=== PATIENT | female | born 1940 | race Caucasian/White ===

== ENCOUNTER → 2016-11-24 | Outpatient (CLI) | payer OTHER, MEDICARE ==
[~2016-11-24] MED LIST: ALPR-411 PO; ASCO10003 PO; ASPEC81 PO; ASPI1CHW26 PO; AZEL0.057 TOP; CALC500C70 PO; CHOL100010 PO; CLC100 PO; CTP1X PO; GLIM2TAB2 PO; HYDR25TA4 PO; MAGN400T6 PO; METF500T PO; MULT-506 PO; PLN/10 PO; SIMV20TA2 PO; SPIR25TA PO; TYLER650 PO
[2016-11-24 17:27] LABS: THYROID STIMULATING HORMONE 1.44 uIu/ml (0.300-4.500)
== END | disposition home or self-care (01) ==
LOC: C.LABPVFM 11:12
PROVIDERS: ATTEND Family Medicine
DX: E03.9 Hypothyroidism, unspecified (principal)

== ENCOUNTER → 2016-12-29 | Outpatient (CLI) | payer OTHER, MEDICARE | END | disposition home or self-care (01) | LOC: C.LABPVFM 08:46 | PROVIDERS: ATTEND Obstetrics & Gynecology | DX: Z80.41 Family history of malignant neoplasm of ovary (principal) ==

== ENCOUNTER → 2017-02-10 | Outpatient (CLI) | payer OTHER, MEDICARE ==
--- NOTE | 2017-02-10 16:32 | MAMMOGRAPHY REPORT ---
BILATERAL DIGITAL SCREENING MAMMOGRAM TOMOSYNTHESIS WITH CAD: 02/10/2017 CLINICAL HISTORY: Asymptomatic. Personal history of breast cancer. Routine screening. TECHNIQUE: Breast tomosynthesis in addition to standard 2D mammography was performed. Current study was also evaluated with a Computer Aided Detection (CAD) system. COMPARISON: Comparison is made to exams dated: 02/08/2016 mammogram, 12/13/2014 mammogram - [facility], 09/09/2010 mammogram, 09/25/2011 mammogram, 09/30/2012 mammogram, and 12/12/2013 m ammogram - [facility]. BREAST COMPOSITION: There are scattered areas of fibroglandular density in both breasts. The breas t bregma is increasingly fatty replaced compared to prior exams. FINDINGS: There is expected architectural distortion and associated surgical clips in the lateral, f ar posterior left breast, at the site of prior lumpectomy. There is stable asymmetry of the size of the breasts, right greater than left. There are scattered benign rim calcifications bilaterally. No suspicious mass, architectural distortion or cluster of microcalcifications is seen. IMPRESSION: ACR BI-RADS CATEGORY 1: NEGATIVE There is no mammographic evidence of malignancy. A 1 year screening mammogram is recommended. The p atient will receive written notification of the results. Approximately 10% of breast cancers are not detected with mammography. A negative mammographic repor t should not delay biopsy if a clinically suggestive mass is present. Deanna Palencia M.D. ay/:02/10/2017 16:14:42 Rubber Printing Machine Operator: Renata NAIR,R, M, [facility] letter sent: Normal 1/2 BI-RADS Code: ACR BI-RADS Category 1: Negative
== END | disposition home or self-care (01) ==
LOC: C.MAMM 10:51
PROVIDERS: ATTEND Obstetrics & Gynecology
DX: Z12.31 Encounter for screening mammogram for malignant neoplasm of breast (principal)

== ENCOUNTER → 2017-02-25 | Outpatient (CLI) | payer OTHER, MEDICARE | END | disposition home or self-care (01) | LOC: C.PATHSPEC 16:52 | PROVIDERS: ATTEND Dermatology | DX: L57.0 Actinic keratosis (principal); L82.1 Other seborrheic keratosis ==

== ENCOUNTER → 2017-03-23 | Outpatient (CLI) | payer OTHER, MEDICARE ==
[2017-03-23 12:41] LABS: HEMATOCRIT 44.2 % (37-47); MEAN CELL VOLUME 91.5 fL (80-100); MEAN CORPUSCULAR HEMOGLOBIN 30.2 pg (25-34); MEAN PLATELET VOLUME 11.1 fL (7.4-10.4); PLATELET COUNT 233 K/uL (130-400); RED BLOOD COUNT 4.83 M/uL (4.2-5.4); WHITE BLOOD COUNT 6.43 K/uL (4.8-10.8)
[2017-03-23 13:10] LABS: ESTIMATED AVERAGE GLUCOSE 203 mg/dl; HA1C FLAG Normal (Normal)
[2017-03-23 13:15] LABS: URINE PROTIEN/CREAT RATIO 0.1 (0-0.2); URINE TOTAL PROTEIN 21.8 mg/dl (0-11.9)
[2017-03-23 13:24] LABS: URINE APPEARANCE CLEAR (CLEAR); URINE BILIRUBIN NEG (NEG); URINE COLOR YELLOW; URINE EPITHELIAL CELL AUTO >30 /lpf (0-5); URINE NITRITE NEG (NEG); URINE PH 7.5 (4.5-7.5); URINE SPECIFIC GRAVITY 1.021 (1.000-1.030); UROBILINOGEN NEG (NEG)
[2017-03-23 13:26] LABS: BLOOD UREA NITROGEN 15 mg/dl (7-18); BUN/CREATININE RATIO 11.9 (10-20); CALCIUM 9.4 mg/dl (8.5-10.1); CARBON DIOXIDE 28 mmol/L (21-32); CHLORIDE 102 mmol/L (98-107); GLUCOSE 196 mg/dl (70-99); PHOSPHORUS 2.7 mg/dl (2.5-4.9); POTASSIUM 3.5 mmol/L (3.5-5.1); SODIUM 140 mmol/L (136-145)
[2017-03-23 13:29] LABS: CHOLESTEROL/HDL RATIO 2.9; THYROID STIMULATING HORMONE 2.46 uIu/ml (0.300-4.500)
[2017-03-23 13:33] LABS: MANUAL MICROSCOPIC REQUIRED? NO; REVIEW REQ? NO
== END | disposition home or self-care (01) ==
LOC: C.LABPVFM 07:36
PROVIDERS: ATTEND Family Medicine
DX: I12.9 Hypertensive chronic kidney disease with stage 1 through stage 4 chronic kidney disease, or unspecified chronic kidney disease (principal); N18.3 Chronic kidney disease, stage 3 (moderate); N25.81 Secondary hyperparathyroidism of renal origin; R60.9 Edema, unspecified; E55.9 Vitamin D deficiency, unspecified; E78.00 Pure hypercholesterolemia, unspecified; E11.8 Type 2 diabetes mellitus with unspecified complications; E03.9 Hypothyroidism, unspecified

== ENCOUNTER → 2017-05-04 | Outpatient (CLI) | payer OTHER, MEDICARE | LOC: C.RDSM 13:35 | PROVIDERS: ATTEND Physical Medicine & Rehabilitation Sports Medicine | DX: M17.0 Bilateral primary osteoarthritis of knee (principal) ==

== ENCOUNTER → 2017-07-02 | Outpatient (CLI) | payer OTHER, MEDICARE ==
[2017-07-02 12:54] LABS: ESTIMATED AVERAGE GLUCOSE 163 mg/dl; HA1C FLAG Normal (Normal)
[2017-07-02 13:16] LABS: BLOOD UREA NITROGEN 15 mg/dl (7-18); BUN/CREATININE RATIO 10.7 (10-20); CALCIUM 9.7 mg/dl (8.5-10.1); CARBON DIOXIDE 26 mmol/L (21-32); CHLORIDE 100 mmol/L (98-107); GLUCOSE 204 mg/dl (70-99); SODIUM 135 mmol/L (136-145)
== END | disposition home or self-care (01) ==
LOC: C.LABPVFM 08:48
PROVIDERS: ATTEND Nurse Practitioner Family
DX: E11.8 Type 2 diabetes mellitus with unspecified complications (principal)

== ENCOUNTER → 2017-08-25 | Outpatient (CLI) | payer OTHER, MEDICARE ==
[2017-08-25 13:14] LABS: LYME DISEASE AB IGG NEG (NEG); LYME DISEASE AB IGM NEG (NEG)
== END | disposition home or self-care (01) ==
LOC: C.LABPVFM 09:37
PROVIDERS: ATTEND Nurse Practitioner Adult Health
DX: R53.83 Other fatigue (principal)

== ENCOUNTER → 2017-09-21 | Outpatient (CLI) | payer OTHER, MEDICARE ==
[2017-09-21 12:46] LABS: HEMATOCRIT 46.6 % (37-47); MEAN CORPUSCULAR HEMOGLOBIN 30.1 pg (25-34); MEAN CORPUSCULAR HGB CONC 33.5 g/dl (32-36); MEAN PLATELET VOLUME 10.5 fL (7.4-10.4); PLATELET COUNT 250 K/uL (130-400); RED BLOOD COUNT 5.18 M/uL (4.2-5.4); WHITE BLOOD COUNT 9.56 K/uL (4.8-10.8)
[2017-09-21 13:03] LABS: URINE APPEARANCE CLEAR (CLEAR); URINE BILIRUBIN NEG (NEG); URINE COLOR YELLOW; URINE EPITHELIAL CELL AUTO >30 /lpf (0-5); URINE NITRITE NEG (NEG); URINE PH 7.5 (4.5-7.5); URINE SPECIFIC GRAVITY 1.026 (1.000-1.030); UROBILINOGEN NEG (NEG)
[2017-09-21 13:18] LABS: MANUAL MICROSCOPIC REQUIRED? NO; REVIEW REQ? NO; SULFASALICYLIC ACID NEG (NEG)
[2017-09-21 13:20] LABS: BLOOD UREA NITROGEN 23 mg/dl (7-18); BUN/CREATININE RATIO 18.1 (10-20); CARBON DIOXIDE 28 mmol/L (21-32); CHLORIDE 98 mmol/L (98-107); CREATININE 1.29 mg/dl (0.60-1.20); GLUCOSE 125 mg/dl (70-99); PHOSPHORUS 3.4 mg/dl (2.5-4.9); POTASSIUM 3.4 mmol/L (3.5-5.1); SODIUM 136 mmol/L (136-145)
[2017-09-21 14:26] LABS: URINE PROTIEN/CREAT RATIO 0.1 (0-0.2); URINE TOTAL PROTEIN 26.5 mg/dl (0-11.9)
== END | disposition home or self-care (01) ==
LOC: C.LABPVFM 08:21
PROVIDERS: ATTEND Internal Medicine Nephrology
DX: I12.9 Hypertensive chronic kidney disease with stage 1 through stage 4 chronic kidney disease, or unspecified chronic kidney disease (principal); N18.3 Chronic kidney disease, stage 3 (moderate); N25.81 Secondary hyperparathyroidism of renal origin; E55.9 Vitamin D deficiency, unspecified; R60.9 Edema, unspecified

== ENCOUNTER → 2017-11-11 | Outpatient (CLI) | payer OTHER, MEDICARE | END | disposition home or self-care (01) | LOC: C.PATHSPEC 17:32 | PROVIDERS: ATTEND Dermatology | DX: D23.61 Other benign neoplasm of skin of right upper limb, including shoulder (principal); L57.0 Actinic keratosis ==

== ENCOUNTER → 2018-02-11 | Outpatient (CLI) | payer OTHER, MEDICARE ==
--- NOTE | 2018-02-11 15:09 | MAMMOGRAPHY REPORT ---
BILATERAL DIGITAL SCREENING MAMMOGRAM TOMOSYNTHESIS WITH CAD: 02/11/2018 CLINICAL HISTORY: Asymptomatic. Personal history of breast cancer. TECHNIQUE: Breast tomosynthesis in addition to standard 2D mammography was performed. Current study was also evaluated with a Computer Aided Detection (CAD) system. COMPARISON: Comparison is made to exams dated: 02/10/2017 mammogram, 02/08/2016 mammogram, 12/13/2014 m ammogram, 12/12/2013 mammogram - [facility], 09/30/2012 mammogram, and 09/25/2011 mamm ogram. BREAST COMPOSITION: There are scattered areas of fibroglandular density in both breasts. FINDINGS: No suspicious masses, calcifications, or areas of architectural distortion are noted in ei ther breast. There has been no significant interval change compared to prior exams. Stable post surg ical changes in the left upper outer quadrant from prior lumpectomy. Scattered bilateral benign-appe aring calcifications are not significantly changed. Bilateral asymmetries are stable. IMPRESSION: ACR BI-RADS CATEGORY 2: BENIGN There is no mammographic evidence of malignancy. A 1 year screening mammogram is recommended. The pa tient will receive written notification of the results. Approximately 10% of breast cancers are not detected with mammography. A negative mammographic report should not delay biopsy if a clinically suggestive mass is present. Stacia Gabriel M.D. /:02/11/2018 14:16:25 Pt Sitter: Nidia ROSALES)([place]), [facility] letter sent: Normal 1/2 BI-RADS Code: ACR BI-RADS Category 2: Benign
== END | disposition home or self-care (01) ==
LOC: C.MAMM 10:24
PROVIDERS: ATTEND Obstetrics & Gynecology
DX: Z12.31 Encounter for screening mammogram for malignant neoplasm of breast (principal); Z85.3 Personal history of malignant neoplasm of breast

== ENCOUNTER → 2018-03-22 | Outpatient (CLI) | payer OTHER, MEDICARE ==
[2018-03-22 12:48] LABS: HEMATOCRIT 43.7 % (37-47); HEMOGLOBIN 14.6 g/dL (12.0-16.0); MEAN CELL VOLUME 91.4 fL (80-100); MEAN CORPUSCULAR HEMOGLOBIN 30.5 pg (25-34); MEAN CORPUSCULAR HGB CONC 33.4 g/dl (32-36); MEAN PLATELET VOLUME 10.9 fL (7.4-10.4); PLATELET COUNT 213 K/uL (130-400); RED CELL DISTRIBUTION WIDTH SD 50.4 fL (36.4-46.3); WHITE BLOOD COUNT 7.11 K/uL (4.8-10.8)
[2018-03-22 13:21] LABS: HEMOGLOBIN A1C 6.7 % (4.5-5.6)
[2018-03-22 13:31] LABS: ALBUMIN 3.8 gm/dl (3.4-5.0); BLOOD UREA NITROGEN 18 mg/dl (7-18); CALCIUM 9.6 mg/dl (8.5-10.1); CARBON DIOXIDE 30 mmol/L (21-32); CREATININE 1.09 mg/dl (0.60-1.20); GLUCOSE 132 mg/dl (70-99); POTASSIUM 3.8 mmol/L (3.5-5.1); SODIUM 138 mmol/L (136-145)
[2018-03-22 13:32] LABS: PHOSPHORUS 2.8 mg/dl (2.5-4.9)
== END | disposition home or self-care (01) ==
LOC: C.LABPVFM 07:32
PROVIDERS: ATTEND Family Medicine
DX: I12.9 Hypertensive chronic kidney disease with stage 1 through stage 4 chronic kidney disease, or unspecified chronic kidney disease (principal); E11.29 Type 2 diabetes mellitus with other diabetic kidney complication; N18.3 Chronic kidney disease, stage 3 (moderate); E55.9 Vitamin D deficiency, unspecified; R31.29 Other microscopic hematuria; R60.9 Edema, unspecified; E78.00 Pure hypercholesterolemia, unspecified

== ENCOUNTER 2020-05-23 05:17 | Observation (INO) ==
--- NOTE | 2020-04-26 16:30 | PAT Medication Instructions ---
Medication Instructions Date of Service April 26, 2020 Home Medications Medication Instructions Recorded spironolactone 25 mg tablet 25 mg PO BID #180 tab 08/10/19 clonidine HCl 0.1 mg tablet 0.1 mg PO BID #180 tab 02/07/20 glimepiride 2 mg tablet 1 mg PO BID #90 tab 02/07/20 metformin 1,000 mg tablet 1,000 mg PO BID #180 tab 02/07/20 alprazolam 0.5 mg tablet 0.5 mg PO DAILY PRN #30 tab 04/03/20 bumetanide 0.5 mg tablet 0.5 mg PO DAILY #90 tab 04/26/20 albuterol sulfate 90 mcg/actuation aerosol inhaler 1 - 2 puffs INH ascorbic acid (vitamin C) 1,000 mg tablet 1 gm PO DAILY aspirin 81 mg tablet 81 mg PO DAILY calcium carbonate 500 mg calcium (1,250 mg) tablet 500 mg PO BID/20 docusate sodium 100 mg capsule 100 mg PO BID metronidazole 0.75 % topical cream 1 appln TOP potassium gluconate 595 mg (99 mg) tablet 595 mg PO DAILY triamcinolone acetonide 0.1 % topical cream 1 appln TOP vitamin A-vitamin C-vit E-min 1 tab PO DAILY spironolactone 25 mg tablet 25 mg PO BID clonidine HCl 0.1 mg tablet 0.1 mg PO BID glimepiride 2 mg tablet 1 mg PO BID metformin 1,000 mg tablet 1,000 mg PO BID alprazolam 0.5 mg tablet 0.5 mg PO DAILY PRN acetaminophen [Tylenol Extra Strength] 1,000 mg PO BID cholecalciferol (vitamin D3) 1,000 units PO QAM famotidine 20 mg PO QAM felodipine 10 mg PO QAM levothyroxine 50 mcg PO QAM omeprazole 20 mg PO QPM simvastatin 20 mg PO HS bumetanide 0.5 mg tablet 0.5 mg PO DAILY magnesium oxide 400 mg (241.3 mg magnesium) tablet 800 mg PO DAILY STOP taking 2 weeks before surgery vitamin A-vitamin C-vit E-min 1 tab PO DAILY STOP taking 24 hours before surgery metronidazole 0.75 % topical cream 1 appln TOP triamcinolone acetonide 0.1 % topical cream 1 appln TOP DO NOT take the morning of surgery bumetanide 0.5 mg tablet 0.5 mg PO DAILY magnesium oxide 400 mg (241.3 mg magnesium) tablet 800 mg PO DAILY cholecalciferol (vitamin D3) 1,000 units PO QAM spironolactone 25 mg tablet 25 mg PO BID glimepiride 2 mg tablet 1 mg PO BID metformin 1,000 mg tablet 1,000 mg PO BID potassium gluconate 595 mg (99 mg) tablet 595 mg PO DAILY calcium carbonate 500 mg calcium (1,250 mg) tablet 500 mg PO BID/20 docusate sodium 100 mg capsule 100 mg PO BID ascorbic acid (vitamin C) 1,000 mg tablet 1 gm PO DAILY Take morning of surgery With a small sip of water, OTHERWISE NOTHING TO EAT OR DRINK AFTER MIDNIGHT: famotidine 20 mg PO QAM felodipine 10 mg PO QAM levothyroxine 50 mcg PO QAM clonidine HCl 0.1 mg tablet 0.1 mg PO BID alprazolam 0.5 mg tablet 0.5 mg PO DAILY PRN (if needed) acetaminophen [Tylenol Extra Strength] 1,000 mg PO BID (okay to take up to 4 hours prior to surgery if needed) albuterol sulfate 90 mcg/actuation aerosol inhaler 1 - 2 puffs INH (use if needed; please bring with you to hospital day of surgery if possible) aspirin 81 mg tablet 81 mg PO DAILY Take evening before surgery omeprazole 20 mg PO QPM simvastatin 20 mg PO HS spironolactone 25 mg tablet 25 mg PO BID clonidine HCl 0.1 mg tablet 0.1 mg PO BID glimepiride 2 mg tablet 1 mg PO BID metformin 1,000 mg tablet 1,000 mg PO BID alprazolam 0.5 mg tablet 0.5 mg PO DAILY PRN acetaminophen [Tylenol Extra Strength] 1,000 mg PO BID calcium carbonate 500 mg calcium (1,250 mg) tablet 500 mg PO BID/20 docusate sodium 100 mg capsule 100 mg PO BID albuterol sulfate 90 mcg/actuation aerosol inhaler 1 - 2 puffs INH (if needed) Other Notes If you have any questions please call us at [phone] or [phone] or [phone] or [phone]
--- NOTE | 2020-04-27 09:30 | Anesthesiology Consultation ---
Date of Service April 27, 2020 Assessment & Plan (1) Encounter for pre-operative examination: Chart Review Chart Review: Acceptable Risk for Surgery (pending Covid testing ) and Patient seen in Pre Admission Testing - Check BSG AM DOS Per PAT apt 04/27/20, pt traveled to [facility] 04/14 for take out- stayed in car. Wears mask when in public. Denies any known Covid positive contacts. Denies any current Covid related symptoms. Has preop Covid testing scheduled three days prior to procedure. Pt educated to social distance and quarantine especially after Covid test done Pt requesting GA due to history of hardware in lumbar area. Did explain pros to spinal anesthesia. Pt will discuss with anesthesiologist DOS. Teaching & Discussion Pre-Anesthesia Teaching/Discussion Notes: Instructed NPO after midnight before surgery,except medications with 15 cc of water. Medication instructions provided according to the PAT guidelines. History Surgery Operation Date: 05/23/20 11:20 Proposed Procedures p Left Total Hip Arthroplasty with Dual Mobility Cup - Brodie Pearson MD Height/Weight Height: 5 ft 6 in Weight: 107 kg Allergies Allergy/AdvReac Type Severity Reaction Status Date / Time No Known Drug Allergies Allergy Verified 04/26/20 11:07 Medications Home Medications Medication Instructions Recorded Confirmed Last Taken albuterol sulfate 90 mcg/actuation 1 - 2 puffs INH .COMPLEX 07/04/19 04/26/20 Unknown aerosol inhaler ascorbic acid (vitamin C) 1,000 mg 1 gm PO DAILY tab 07/04/19 04/26/20 Unknown tablet aspirin 81 mg tablet 81 mg PO DAILY tab 07/04/19 04/26/20 Unknown calcium carbonate 500 mg calcium 500 mg PO BID tab 07/04/19 04/26/20 Unknown (1,250 mg) tablet docusate sodium 100 mg capsule 100 mg PO BID cap 07/04/19 04/26/20 Unknown metronidazole 0.75 % topical cream 1 appln TOP .COMPLEX 07/04/19 04/26/20 Unknown potassium gluconate 595 mg (99 mg) 595 mg PO DAILY tab 07/04/19 04/26/20 Unknown tablet triamcinolone acetonide 0.1 % 1 appln TOP .COMPLEX 07/04/19 04/26/20 Unknown topical cream vitamin A-vitamin C-vit E-min 1 tab PO DAILY 07/04/19 04/26/20 Unknown spironolactone 25 mg tablet 25 mg PO BID #180 tab 08/10/19 04/26/20 Unknown clonidine HCl 0.1 mg tablet 0.1 mg PO BID #180 tab 02/07/20 04/26/20 Unknown glimepiride 2 mg tablet 1 mg PO BID #90 tab 02/07/20 04/26/20 Unknown metformin 1,000 mg tablet 1,000 mg PO BID #180 tab 02/07/20 04/26/20 Unknown alprazolam 0.5 mg tablet 0.5 mg PO DAILY PRN #30 tab 04/03/20 04/26/20 Unknown acetaminophen [Tylenol Extra 1,000 mg PO BID 04/17/20 04/26/20 Unknown Strength] cholecalciferol (vitamin D3) 1,000 units PO QAM 04/17/20 04/26/20 Unknown famotidine 20 mg PO QAM 04/17/20 04/26/20 Unknown felodipine 10 mg PO QAM 04/17/20 04/26/20 Unknown levothyroxine 50 mcg PO QAM 04/17/20 04/26/20 Unknown omeprazole 20 mg PO QPM 04/17/20 04/26/20 Unknown simvastatin 20 mg PO HS 04/17/20 04/26/20 Unknown bumetanide 0.5 mg tablet 0.5 mg PO DAILY #90 tab 04/26/20 04/26/20 Unknown magnesium oxide 400 mg (241.3 mg 800 mg PO DAILY tab 04/26/20 04/26/20 Unknown magnesium) tablet Past Medical History Medical History (Updated 04/27/20 @ 11:07 by Dara Ibarra PA-C) Anxiety Chronic kidney disease, stage 3 Stable- follows with nephro Curvature of spine Diabetes mellitus, type 2 NIDDM- well controlled and stable GERD (gastroesophageal reflux disease) Well controlled and stable Hearing deficit [place] History of breast cancer Left - lumpectomy + radiation - 2004 Hyperlipidemia Hypertension Hypothyroidism Macular degeneration Exercise / Class Metabolic Activity III < 4 Walking/Shop/Light housework (no chest pain or SOB with flat surface ambulation- uses wheeled walker ) Past Family History Family History Mother , age 80 Ovarian cancer Diabetes Brother Prostate cancer Lung cancer Kidney stones Diabetes Cardiac disorder Colorectal cancer, Onset Age: 66 Father Cardiac disorder Grandmother (Maternal) Breast cancer Family/Other Breast cancer BRCA 2 positive Daughter No problems noted. Past Surgical History Surgical History H/O section H/O colonoscopy H/O dilation and curettage H/O tooth extraction H/O tubal ligation History of breast biopsy History of cataract surgery History of cholecystectomy History of colonoscopy History of hysteroscopy W/ POLYPECTOMY History of lumbar surgery History of right knee joint replacement S/P appendectomy S/P lumpectomy, left breast Past Anesthesia History No Hx of Anesthesia Complications and No Family Hx of Anesthesia Complications History of PONV No Hx of PONV and No Hx of Motion Sickness Social History Smoking Status: Never smoker Do You Dip or Chew Tobacco: No Smoking End Date: 1978 Hx Alcohol Use: Yes (social) Alcohol type: beer, wine and hard liquor alcohol intake frequency: holidays/special occasions only Hx Substance Use: No substance use type: does not use Review of Systems Patient denies chest pain, shortness of breath, dyspnea on exertion,, cough, wheezing, palpitations. No hx of seizures, stroke, CA, apnea/snoring. No hx of blood clots or blood transfusions Physical Exam Vital Signs VITALS BP 154/74 P 92 TEMP 98.6 SP02 97% RESP 16 Constitutional + obese; no acute distress ENMT Mouth: no TMJ clicking Thyromental Distance: > or= 3.5 Finger Breadths Mallampati Class: I Full set of dentures top and bottom Neck neck extension not limited Respiratory normal respiratory effort; no respiratory distress Auscultation: lungs clear to auscultation bilaterally; no wheezes Cardiovascular Rate/Rhythm: regular rate and regular rhythm Heart Sounds: no murmur Vessels: no carotid bruit Musculoskeletal Spine: + pain with cervical ROM (on right side ) Neurologic moves all extremities Psychiatric Orientation: alert Testing Laboratory Results PT 11.0 Seconds (9.0-12.0) 04/27/20 09:50 INR 1.0 (0.9-1.1) 04/27/20 09:50 APTT 29.2 Seconds (21.0-31.0) 04/27/20 09:50 Urine Color Yellow 04/27/20 09:50 Urine Appearance Clear (Clear) 04/27/20 09:50 Urine pH 5.0 (4.5-7.5) 04/27/20 09:50 Ur Specific [place] 1.022 (1.000-1.030) 04/27/20 09:50 Urine Protein Negative (Negative) 04/27/20 09:50 Urine Glucose (UA) Negative (Negative) 04/27/20 09:50 Urine Ketones Trace (Negative) H 04/27/20 09:50 Urine Nitrite Negative (Negative) 04/27/20 09:50 Ur Leukocyte Esterase 1+ (Negative) H 04/27/20 09:50 Urine WBC (Auto) 5-10 /hpf (0-5) H 04/27/20 09:50 Urine RBC (Auto) 0-4 /hpf (0-4) 04/27/20 09:50 U Hyaline Cast (Auto) 0 /lpf (0-5) 04/27/20 09:50 U Epithel Cells (Auto) >30 /lpf (0-5) H 04/27/20 09:50 Urine Bacteria (Auto) Negative (Negative) 04/27/20 09:50 Blood Type A Positive 04/27/20 09:50 Antibody Screen NEGATIVE 04/27/20 09:50 04/23/20= WBC: 7.65 H/H: 14.5/44.3 PLATELETS: 306 SODIUM: 133 POTASSIUM: 3.5 CHLORIDE: 97 CO2: 31 BUN: 11 CREATININE: 0.94 GLUCOSE: 171 HGB A1C: 7.1 Electrocardiogram Date: 04/27/20 SR with 1st degree AVB with occ PVCs at 95 bpm. Non specific T wave abnormality Chest X-Ray Date: 04/27/20 Findings: + NAD
[2020-04-27 10:51] LABS: Appearance Urine Clear (Clear); Bacteria Urine Automated Negative (Negative); Bilirubin Urine Negative (Negative); Blood Urine Negative (Negative); Cast Urine Automated 0 /lpf (0-5); Color Urine Yellow; Epithelial Cell Urine Auto >30 /lpf (0-5); Glucose Urine UA Negative (Negative); Ketones Urine Trace (Negative); Leukocyte Esterase Urine 1+ (Negative); Nitrite Urine Negative (Negative); Protein Urine Negative (Negative); RBC Urine Automated 0-4 /hpf (0-4); Specific Gravity Urine 1.022 (1.000-1.030); Urobilinogen Urine Negative (Negative)
[2020-04-27 10:57] LABS: Partial Thromboplastin Time 29.2 Seconds (21.0-31.0)
--- NOTE | 2020-04-28 07:01 | Electrocardiogram Report ---
Test Reason : Blood Pressure : / mmHG Vent. Rate : 095 BPM Atrial Rate : 095 BPM P-R Int : 218 ms QRS Dur : 106 ms QT Int : 370 ms P-R-T Axes : 084 -24 112 degrees QTc Int : 464 ms Sinus rhythm with 1st degree A-V block with occasional Premature ventricular complexes Nonspecific T wave abnormality Abnormal ECG When compared with ECG of 17-AUG-2015 10:18, Premature ventricular complexes are now Present NH interval has increased Confirmed by Jay Esparza ([id number]) on 04/28/2020 7:01:20 AM Referred By: Brodie Pearson Confirmed By:Jay Esparza
--- NOTE | 2020-05-14 07:34 | History & Physical Report ---
Date of Service May 14, 2020 Assessment & Plan (1) Degenerative joint disease of left hip: Postoperative prescriptions for Percocet and Coumadin will be provided at discharge from the hospital. Anticipate discharge to home with home health services. Preoperative lab work, EKG, and chest x-ray have been ordered. She already has a walker and access to a cane. The patient is aware of COVID-19 risks associated with surgery. She is currently asymptomatic of any COVID-19 symptoms. She will obtain a nasal swab for coronavirus prior to surgery and results will be made known to her prior to proceeding. History of Present Illness Chief Complaint: left hip pain Primary Care Provider: Harper Jose MD This 80-year-old white female presents is scheduled to undergo a left total hip arthroplasty using dual mobility cup on 05/23/2020. The patient has had left hip pain since November 2019. Pain has become worse with time. It is worse with ambulation. Pain is affecting her ADLs. No significant trauma. She woke up one morning with acute left hip pain. She has tried physical therapy as well as a home exercise program and activity modification without improvement. Pain is constant. She is ambulatory using a walker. The patient has a history of lumbar fusion. She denies any numbness or tingling. Preoperative imaging has been obtained. Allergies Allergy/AdvReac Type Severity Reaction Status Date / Time No Known Drug Allergies Allergy Verified 05/10/20 14:42 Home Medications Home Medications Medication Instructions Recorded Confirmed Type ascorbic acid (vitamin C) 1,000 mg 1 gm PO DAILY tab 07/04/19 05/10/20 History tablet aspirin 81 mg tablet 81 mg PO DAILY tab 07/04/19 05/10/20 History calcium carbonate 500 mg calcium 500 mg PO BID tab 07/04/19 05/10/20 History (1,250 mg) tablet docusate sodium 100 mg capsule 100 mg PO BID cap 07/04/19 05/10/20 History metronidazole 0.75 % topical cream 1 appln TOP .COMPLEX gm 07/04/19 05/10/20 History potassium gluconate 595 mg (99 mg) 595 mg PO DAILY tab 07/04/19 05/10/20 History tablet triamcinolone acetonide 0.1 % 1 appln TOP .COMPLEX gm 07/04/19 05/10/20 History topical cream vitamin A-vitamin C-vit E-min 1 tab PO DAILY 07/04/19 05/10/20 History clonidine HCl 0.1 mg tablet 0.1 mg PO BID #180 tab 02/07/20 05/10/20 Rx glimepiride 2 mg tablet 1 mg PO BID #90 tab 02/07/20 05/10/20 Rx metformin 1,000 mg tablet 1,000 mg PO BID #180 tab 02/07/20 05/10/20 Rx acetaminophen [Tylenol Extra 1,000 mg PO BID 04/17/20 05/10/20 History Strength] cholecalciferol (vitamin D3) 1,000 units PO QAM 04/17/20 05/10/20 History famotidine 20 mg PO QAM 04/17/20 05/10/20 History felodipine 10 mg PO QAM 04/17/20 05/10/20 History levothyroxine 50 mcg PO QAM 04/17/20 05/10/20 History omeprazole 20 mg PO QPM 04/17/20 05/10/20 History simvastatin 20 mg PO HS 04/17/20 05/10/20 History bumetanide 0.5 mg tablet 0.5 mg PO DAILY #90 tab 04/26/20 05/10/20 Rx magnesium oxide 400 mg (241.3 mg 800 mg PO DAILY tab 04/26/20 05/10/20 History magnesium) tablet alprazolam 0.5 mg tablet 0.5 mg PO DAILY PRN #30 tab 05/10/20 05/10/20 Rx spironolactone 25 mg tablet 25 mg PO BID #180 tab 05/10/20 05/10/20 Rx Past Med/Surg History Medical History Anxiety Chronic kidney disease, stage 3 Stable- follows with nephro Curvature of spine Diabetes mellitus, type 2 NIDDM- well controlled and stable GERD (gastroesophageal reflux disease) Well controlled and stable Hearing deficit [place] History of breast cancer Left - lumpectomy + radiation - 2004 Hyperlipidemia Hypertension Hypothyroidism Macular degeneration Surgical History H/O section H/O colonoscopy H/O dilation and curettage H/O tooth extraction H/O tubal ligation History of breast biopsy History of cataract surgery History of cholecystectomy History of colonoscopy History of hysteroscopy W/ POLYPECTOMY History of lumbar surgery History of right knee joint replacement S/P appendectomy S/P lumpectomy, left breast Family History Mother , age 80 Ovarian cancer Diabetes Brother Prostate cancer Lung cancer Kidney stones Diabetes Cardiac disorder Colorectal cancer, Onset Age: 66 Father Cardiac disorder Grandmother (Maternal) Breast cancer Family/Other Breast cancer BRCA 2 positive Daughter No problems noted. Social History Preferred Language: Latvian Communication Ability: Effective Kettle Operator Required: No Beliefs That Will Affect Care: None marital status: / Current Living Situation: Alone current occupational status: retired Feels Safe at Home: Yes Smoking Status: Never smoker Second Hand Exposure: No ; Hx Alcohol Use: Yes (social) Alcohol type: beer, wine and hard liquor Hx Substance Use: No Dental Care, Regularly: Yes Seatbelt Use: always Review of Systems Review of Systems: All systems reviewed & are unremarkable except as noted in HPI & below Physical Exam Physical Exam: Vitals: Height 163 cm, weight 107 kilograms, BMI 40.3, temperature 36.6 oral, BP 130/60, pulse 99, O2 sat 100% on room air. General: Well-developed, well-nourished, morbidly obese, elderly white female in no acute distress. Sitting on a chair. Alert and oriented. Skin: Warm and dry with fair turgor. No rashes or lesions. No ecchymosis or erythema. HEENT: Normocephalic, atraumatic. Eyes: PERRLA, EOMI. Nares and oropharynx exams deferred due to COVID precautions. Hearing aids present. Heart: RRR; no MGR. Lungs: Clear to auscultation bilaterally; no crackles, rhonchi or wheezing; good air movement. Abdomen: Obese; bowel sounds present x4; soft, nontender. No organomegaly. No masses. Musculoskeletal: Left hip evaluation reveals no obvious asymmetry or deformity. She has significant pain with any attempt at motion of her left hip. Passive hip flexion to around 90 degrees, internal rotation of around 5 degrees, external rotation of about 20 degrees before onset of significant pain. No palpable crepitus with log rolling. No pain with palpation over her IT band or greater trochanter. She does have focal discomfort over the anterior flexion crease with any hip motion. Ambulates with an antalgic gait using her walker. Knee exam is benign with good flexion and extension of her left knee. Strength is 5/5 for resisted hip flexion, abduction, and adduction. Neurologic: Gross sensation is intact across both lower extremities by soft touch. Peripheral pulses are 2+. Results & Data Results & Data ([facility]) Diagnostic Findings Radiographic imaging previously obtained of the pelvis and hip shows endstage DJD of the left hip with significant osteophyte formation, joint space narrowing, and subchondral sclerosis. Lumbar hardware is visible.
[2020-05-23] MEDS ORDERED: LR 15ML/HR IV SCH (06:00)
[2020-05-23] MEDS ORDERED: ROPIVACAINE 0.5% HCL/PF 150 MG, BUPIVACAINE 0.5% MPF 30 ML, EPINEPHrine 0.15 MG, Ketoro... INFIL SCH (06:00)
[2020-05-23] MEDS ORDERED: LR 60ML/HR IV SCH (06:00)
[2020-05-23] MEDS ORDERED: TRANEXAMIC ACID 1,000 MG **IV Pre-op IV SCH (06:00)
[2020-05-23] MEDS ORDERED: CEFAZOLIN 2000MG 2,000 MG/15 ML SYR IV SCH (06:00)
--- NOTE | 2020-05-23 06:15 | History & Physical Bridge Note ---
Date of Service May 23, 2020 History & Physical Bridge Note I have examined the patient, reviewed the History & Physical and in the interval since the performance of the History & Physical I have noted the following changes of clinical significance: consent obtained /site marked/covid screen negative.no changes noted
[2020-05-23] MEDS ORDERED: PROPOFOL IV EMULSION 10 MG/ML 20 ML VIAL IV ONE (06:17)
[2020-05-23] MEDS ORDERED: MIDAZOLAM HCL 1 MG/ML 2ML VIAL ONE (06:17)
[2020-05-23] MEDS ORDERED: LIDOCAINE HCL 2% 2 ML VIAL/AMP(20MG/ML) INFIL ONE (06:17)
[2020-05-23] MEDS ORDERED: fentaNYL citrate 100 MCG/2 ML VIAL ONE ×3 (06:17→07:22)
[2020-05-23] MEDS ORDERED: BUPIVACAINE 0.5 % 5 MG/1 ML PF 10ML VIAL ONE (06:18)
[2020-05-23] MEDS ORDERED: ORTHO JOINT ANESTHETIC ONE (06:32)
[2020-05-23] MEDS ORDERED: CISATRACURIUM BESYLATE IV SOLN 2 MG/ML 10 ML VIAL IV ONE (07:03)
[2020-05-23] MEDS ORDERED: ONDANSETRON INJ 2 MG/ML 2 ML VIAL ONE (07:03)
[2020-05-23] MEDS ORDERED: SUCCINYLCHOLINE CHLORIDE 20 MG/ML 10 ML VIAL IV ONE (07:03)
[2020-05-23] MEDS ORDERED: GLYCOPYRROLATE 0.2 MG/ML VIAL ONE ×2 (07:41→08:02)
[2020-05-23] MEDS ORDERED: NEOSTIGMINE METHYLSULFATE 5 MG/5 ML SYR ONE (07:41)
--- NOTE | 2020-05-23 08:30 | Post Operative Brief Note ---
Immediate Post Op Note v1 Date of Surgery May 23, 2020 Pre & Post Diagnosis Operation Date: 05/23/20 07:00 Pre-Op Diagnosis: Left Hip Degenerative Joint Disease Post-Op Diagnosis: Left Hip Degenerative Joint Disease I identified the patient and participated in the time-out.: Yes Procedure Operation Date: 05/23/20 07:00 Actual Procedures p Left Total Hip Arthroplasty with Dual Mobility Cup, Uncemented(Left) - Brodie Pearson MD Surgeon Brodie Pearson MD Research Quality Assurance Specialist [email or web address] Estimated Blood Loss 100 Findings Consistent with Post-Op Diagnosis
--- NOTE | 2020-05-23 08:34 | Operative Report ---
Post Operative Report Pre & Post Diagnosis Operation Date: 05/23/20 07:00 Pre-Op Diagnosis: Left Hip Degenerative Joint Disease Post-Op Diagnosis: Left Hip Degenerative Joint Disease I identified the patient and participated in the time-out.: Yes Procedure Operation Date: 05/23/20 07:00 Actual Procedures p Left Total Hip Arthroplasty with Dual Mobility Cup, Uncemented(Left) - Brodie Pearson MD Surgeon MARILU Pearson MD Gastroenterology Physician [email or web address] Estimated Blood Loss 100 Findings Consistent with Post-Op Diagnosis Specimens see operative report Drains none Complications none Disposition Accompanied Patient To Recovery: Yes Disposition: Recovery Room Indications This 80-year-old white female presented to the office with complaints of intractable left hip pain. Symptoms were longstanding. She was having difficulty with ADLs and mobility. She elected to proceed with surgical intervention after being educated about potential risks and outcomes. Preoperative imaging was obtained. Description of Procedure Patient was taken to the operating room where she was given general anesthesia. She was prepped and draped in the usual sterile fashion. Please see Dr. Pearson's operative report for specifics of the procedure. I was present for the entire case from initial patient positioning through final wound closure. Assistance was provided in tissue retraction, hemostasis, trial implant placement, final implant placement, and final wound closure. Patient was taken to the recovery room in satisfactory condition. I attest to the content of the Intraoperative Record and any orders documented therein. Any exceptions are noted below.
[2020-05-23] MEDS ORDERED: LABETALOL HCL IV 5 MG/ML 20ML IV PRN (08:45)
[2020-05-23] MEDS ORDERED: NALOXONE HCL 0.4 MG/1 ML VIAL/CARP IV PRN ×2 (08:45→10:33)
[2020-05-23] MEDS ORDERED: HYDROmorphone INJ 1 MG/ML SYRINGE IV PRN (08:45)
[2020-05-23] MEDS ORDERED: fentaNYL citrate 100 MCG/2 ML VIAL IV PRN (08:45)
[2020-05-23] MEDS ORDERED: FLUMAZENIL 0.1 MG/1 ML 10 ML VIAL IV PRN (08:45)
[2020-05-23] MEDS ORDERED: ePHEDrine sulfate 50 MG/ML AMP IV PRN (08:45)
[2020-05-23] MEDS ORDERED: ATROPINE SULFATE 0.1 MG/ML 10ML SYR IV PRN (08:45)
[2020-05-23] MEDS ORDERED: PROMETHAZINE HCL 12.5 MG in SODIUM CHLORIDE 0.9% 50 ML IV PRN (08:45)
[2020-05-23] MEDS ORDERED: ONDANSETRON INJ 2 MG/ML 2 ML VIAL IV PRN ×2 (08:45→10:33)
--- NOTE | 2020-05-23 08:49 | Operative Report ---
Post Operative Report Pre & Post Diagnosis Operation Date: 05/23/20 07:00 Pre-Op Diagnosis: Left Hip Degenerative Joint Disease Post-Op Diagnosis: Left Hip Degenerative Joint Disease I identified the patient and participated in the time-out.: Yes Procedure Operation Date: 05/23/20 07:00 Actual Procedures p Left Total Hip Arthroplasty with Dual Mobility Cup, Uncemented(Left) - Brodie Pearson MD Surgeon Brodie Pearson MD Print Color Operator minh/esa Estimated Blood Loss 100 Findings Consistent with Post-Op Diagnosis Specimens Left femoral head Complications none Disposition Accompanied Patient To Recovery: Yes Disposition: Recovery Room Description of Procedure Lateral decubitus position, standard prep and drape, time out Left Total Hip Arthroplasty with Dual Mobility Cup, Uncemented( Please see Dr Pearson's procedure notes for specific details I was present throughout the case, assisted for wound closure and transferred the patient to PACU in stable condition I attest to the content of the Intraoperative Record and any orders documented therein. Any exceptions are noted below.
--- NOTE | 2020-05-23 09:06 | XRay Report ---
XR pelvis 1-2V routine CLINICAL HISTORY: Postoperative evaluation. COMPARISON: Pelvis radiograph April 27, 2020. FINDINGS: Alignment of the total left hip arthroplasty is anatomic. There are skin kwasi and aceta bular screw. Hardware is intact. There is no fracture or unexpected radiopaque foreign body. Surgical clips within the pelvis are incidentally noted. IMPRESSION: Expected findings following total left hip arthroplasty. ACT 112: Negative or not required by law. Electronically signed by: Mauricio Tovar M.D. 05/23/2020 9:05 AM
--- NOTE | 2020-05-23 09:14 | Anesthesiology Progress Note ---
Date of Service May 23, 2020 Anesthesia Post Procedure Vital Signs Vital Signs: Temp Pulse Pulse Resp BP Pulse Ox 05/23/20 09:05 88 22 160/134 H 97 05/23/20 08:55 100 H 21 163/100 H 95 05/23/20 08:45 91 H 23 161/86 H 99 05/23/20 08:35 36.5 C 98 H 17 149/84 H 98 05/23/20 06:35 86 20 158/86 H 98 05/23/20 06:08 36.6 C 72 18 168/91 H 97 Pain Intensity Back: Pain Intensity: 3 Transfer of Care Handoff Completed per policy Notes Mental Status: alert / awake / arousable Patient Amnestic to Procedure: Yes Nausea / Vomiting: adequately controlled Pain: adequately controlled Airway Patency, RR, SpO2: stable & adequate BP & HR: stable & adequate Hydration State: stable & adequate Anesthetic Complications: no major complications apparent
--- NOTE | 2020-05-23 09:24 | Operative Report (OR) ---
DATE OF OPERATION: 05/23/2020 SURGEON: Brodie Pearson MD. WAITER/WAITRESS SECOND CLASS: Virgie Dick MD. SECOND WOOD BOX MAKER: Krystian Zarate PA-C. PREOPERATIVE DIAGNOSIS: Osteoarthritis, left hip. POSTOPERATIVE DIAGNOSIS: Osteoarthritis, left hip. GUEST OBSERVER: Dr. Fuller. SUMMARY OF IMPLANTS: [employer] G7 osteointegration limited aaron cup size 52, 25mm screw x1, dual mobility liner 42, dual mobility bearing size E, Biolox Delta ceramic femoral head 28+5 and 4 high offset Tri-Lock DePuy stem. ESTIMATED BLOOD LOSS: 100 mL. CRYSTALLOID: Per Anesthesia. PERIOPERATIVE SITUATION: Medically cleared female with intractable hip pain. At this point in time, wants to proceed with surgical treatment. Elected to use dual mobility cup based on the back. The patient has a spine fusion and has limited mobility in her back. She obviously is at greater risk for dislocation. DESCRIPTION OF PROCEDURE: The patient appropriately identified, site verified, consent verified. Antibiotics confirmed as being given. The left lower extremity was prepped and draped in usual routine fashion with the patient in the right lateral decubitus position. Posterior approach was utilized. Sharp dissection carried through skin and blunt dissection down to fascia. This was then incised under direct vision. Care taken to protect the sciatic nerve. Retractors placed. Short external rotators released. Capsule T'd, hip dislocated. Femoral neck resected. Excellent acetabular exposure achieved. There was significant deformity to the labrum and a loose intra-articular osseous body. This was all excised. Reaming was carried up to a 52 and a 52 cup impacted into appropriate anteversion and inclination with excellent fit. A 6.5 x 25 screw was then placed with excellent purchase. Metal liner was then seated. Osteophytes removed. Care was taken to put the metal bearing size E in perfect alignment. Femur was then flexed and internally rotated. The proximal femur prepared with dye box operator, lateralizing rasp, canal finder, serial broaching up to a size 4, high offset +5 neck gave excellent stability. Leg lengths were within millimeters of equality. The hip was then dislocated. The wound was irrigated. Permanent stem, permanent head combo unit applied. The dual mobility component was put together on the back table. It was then packed into position. The hip reduced without difficulty. The wound was then irrigated one final time. The leg lengths were good. Hip stability was excellent. The wound closed with the capsule with #2 Vicryl, the piriformis with #2 Vicryl and IT band and gluteus melo fascia with #2 Vicryl, subcutaneous layer with 2-0 Vicryl and skin with stainless steel clips. Appropriate dressing applied. The patient transferred to Recovery Room in satisfactory condition having tolerated the procedure well. Again summary of implants; cup [employer] G7 osteon limited hole size 52, 25 x 6.5 screw, dual mobility liner size 42, dual mobility bearing size E, 28+5 ceramic head size 4 high offset Tri-Lock that was VoterTideuy, the rest were [employer]. I attest to the content of the Intraoperative Record and any orders documented therein. Any exceptions are noted below. MTDD
[2020-05-23] MEDS ORDERED: MAGNESIUM HYDROXIDE SUSP 30 ML UDC PO PRN (10:33)
[2020-05-23] MEDS ORDERED: DiphenhydrAMINE HCL 50 MG/ML VIAL IV PRN (10:33)
[2020-05-23] MEDS ORDERED: METOCLOPRAMIDE HCL INJ 5 MG/ML 2 ML VIAL IV PRN (10:33)
[2020-05-23] MEDS ORDERED: bisacodyL 10 MG SUPP PR PRN (10:33)
[2020-05-23] MEDS ORDERED: HYDROmorphone INJ 0.5 MG/0.5 ML SYR IV PRN (10:33)
[2020-05-23] MEDS ORDERED: ALUMINUM/MAGNESIUM SUSP 30 ML UDC PO PRN (10:33)
[2020-05-23] MEDS ORDERED: ALPRAZolam 0.5 MG TABLET PO PRN (10:33)
[2020-05-23] MEDS ORDERED: OXYCODONE HCL IR 5 MG TAB (IMMEDIATE RELEASE) PO PRN (10:33)
[2020-05-23] MEDS ORDERED: SODIUM CHLORIDE 0.9% 1000ML 1,000 ML IV SCH (11:00)
[2020-05-23] MEDS ORDERED: DEXTROSE 50% 50 ML SYRINGE IV PRN (11:00)
[2020-05-23] MEDS ORDERED: CARBOHYDRATES FOR HYPOGLYCEMIA PO PRN (11:00)
[2020-05-23] MEDS ORDERED: GLUCOSE 10 TABS/TUBE PO PRN (11:00)
[2020-05-23] MEDS ORDERED: GLUCOSE 40% GEL 15 GM TUBE PO PRN (11:00)
[2020-05-23] MEDS ORDERED: GLUCAGON FOR INJ 1 MG VIAL SQ PRN (11:00)
[2020-05-23] MEDS ORDERED: TRIAMCINOLONE ACET 0.1% CR 15 GM TUBE TOP SCH (11:30)
[2020-05-23] MEDS: BUMETANIDE 1 MG TAB PO SCH (12:34)
[2020-05-23] MEDS: SPIRONOLACTONE 25 MG TAB PO SCH ×2 (12:35→20:23)
[2020-05-23] MEDS: MAGNESIUM OXIDE 400 MG TAB PO SCH ×2 (12:35→12:42)
[2020-05-23] MEDS: FELODIPINE 5 MG TABCR PO SCH (12:35)
[2020-05-23] MEDS: cloNIDine HCL 0.1 MG TAB PO SCH ×2 (12:36→20:22)
[2020-05-23] MEDS: DOCUSATE SODIUM 100 MG CAP PO SCH ×2 (12:36→20:22)
[2020-05-23] MEDS: MULTIVITAMIN TAB PO SCH (12:36)
[2020-05-23] MEDS: KETOROLAC TROMETHAMINE 15 MG/ML VIAL IV SCH ×3 (12:37→23:50)
[2020-05-23] MEDS: FAMOTIDINE 20 MG TAB PO SCH (13:14)
[2020-05-23] MEDS: INSULIN ASPART 100 UNITS/ML 3 ML PEN SC SCH ×3 (13:15→22:05)
--- NOTE | 2020-05-23 13:24 | Progress Notes ---
DATE: 05/23/2020 SUBJECTIVE: Postop check status post left total hip replacement. The patient is sitting up in her chair having lunch. Denies chest pain, shortness of breath, fever, chills, nausea, vomiting or headache. OBJECTIVE: Neurovascular check of femoral sciatic nerve is normal. Postop x-rays look excellent. ASSESSMENT: Doing well status post left total hip replacement with dual mobility cup based on spine issues. Plan is to discharge home tomorrow. Hep-Lock IV.
[2020-05-23] MEDS ORDERED: ORTHO WARFARIN NOMOGRAM SCH (14:00)
--- NOTE | 2020-05-23 14:13 | Discharge Summary (DS) ---
CHIEF COMPLAINT: Left hip pain. HISTORY OF PRESENT ILLNESS: She is admitted for elective left total hip replacement. History of back fusion. Hospital course has been uneventful. She underwent a dual mobility left total hip arthroplasty with no issues. PAST MEDICAL HISTORY: Remarkable for chronic kidney disease, spine degenerative disease, status post fusion, diabetes mellitus, GERD, hearing deficit, history of breast cancer on the left, hyperlipidemia, hypertension, hypothyroidism, macular degeneration. PAST SURGICAL HISTORY: Reveals section, colonoscopies, D and Cs, tooth extractions, tubal ligation, breast biopsy, breast surgery, cataract surgery, cholecystectomy, colonoscopy, hysteroscopy, lumbar surgery and fusion, appendectomy. FAMILY HISTORY: Reveals mother at 80, ovarian cancer, diabetes. Brother, prostate cancer, lung cancer, kidney stones, diabetes, cardiac disorder, colorectal cancer. Father, cardiac disorder. Grandmother, breast cancer. Family other, breast cancer. Daughter, no problems. SOCIAL HISTORY: Reveals that she is cared for by her daughter. She is a , lives alone. She does not smoke. Social alcohol. REVIEW OF SYSTEMS: Reveals no chest pain, shortness of breath, fever, chills, nausea, vomiting or headache. Postop x-rays look excellent. ASSESSMENT: Doing well status post left total hip replacement. Plan is to discharge her to home tomorrow.
[2020-05-23] MEDS: ACETAMINOPHEN 500 MG TAB PO SCH ×2 (14:28→22:15)
[2020-05-23] MEDS ORDERED: TRANEXAMIC ACID / 0.7% NACL 1,000 MG/100 ML BAG IV SCH (15:00)
[2020-05-23] MEDS: CEFAZOLIN 2000MG 2,000 MG/15 ML SYR IV SCH ×2 (15:06→22:15)
[2020-05-23] MEDS ORDERED: WARFARIN SOD 5 MG TAB PO SCH (16:00)
[2020-05-23] MEDS ORDERED: COUGH DROP (SUGAR FREE) LOZ 24 LOZ/1 BOX BUCCAL PRN (16:28)
[2020-05-23] MEDS: FERROUS GLUCONATE 324 MG TAB PO SCH (18:27)
[2020-05-23] MEDS: ASCORBIC ACID 500 MG TAB PO SCH (18:27)
[2020-05-23] MEDS ORDERED: SIMVASTATIN 20 MG TAB PO SCH (21:00)
[2020-05-23] MEDS ORDERED: SENNA 8.6 MG TAB PO SCH (21:00)
[2020-05-23] MEDS ORDERED: PANTOprazole 40 MG TAB PO SCH (21:00)
[2020-05-24] MEDS: ACETAMINOPHEN 500 MG TAB PO SCH (05:53)
[2020-05-24 06:15] LABS: Basophils # (auto) 0.02 K/uL (0-0.2); Basophils % (auto) 0.2 %; Eosinophils # (auto) 0.01 K/uL (0-0.5); Eosinophils % (auto) 0.1 %; Hematocrit (blood only) 38.4 % (37-47); Hemoglobin 12.6 g/dL (12.0-16.0); Immature Granulocytes # (auto) 0.03 K/uL (0.00-0.02); Immature Granulocytes % (auto) 0.2 %; Lymphocytes # (auto) 1.13 K/uL (1.2-3.4); Lymphocytes % (auto) 9.4 %; Mean Corpuscular Hemoglobin 29.5 pg (25-34); Mean Corpuscular Hgb Conc 32.8 g/dL (32-36); Mean Corpuscular Volume 89.9 fL (80-100); Mean Platelet Volume 10.5 fL (7.4-10.4); Monocytes # (auto) 1.01 K/uL (0.11-0.59); Monocytes % (auto) 8.4 %; Neutrophils # (auto) 9.86 K/uL (1.4-6.5); Neutrophils % (auto) 81.7 %; Platelet Count 238 K/uL (130-400); RDW Coefficient of Variation 14.9 % (11.5-14.5); RDW Standard Deviation 48.4 fL (36.4-46.3); Red Blood Count 4.27 M/uL (4.2-5.4); White Blood Count 12.06 K/uL (4.8-10.8)
[2020-05-24] MEDS: KETOROLAC TROMETHAMINE 15 MG/ML VIAL IV SCH (06:19)
[2020-05-24 06:23] LABS: INR 1.2 (0.9-1.1); Prothrombin Time 12.8 Seconds (9.0-12.0)
[2020-05-24] MEDS ORDERED: LEVOTHYROXINE SODIUM 50 MCG TABLET PO SCH (06:30)
[2020-05-24 06:54] LABS: BUN Creatinine Ratio 12.1 (10-20); Calcium 9.3 mg/dl (8.5-10.1); Creatinine Clr Calc Pharmacy 57.6 ml/min; Est GFR (African American) 64.8; Est GFR (Non-African American) 55.9; Potassium 3.9 mmol/L (3.5-5.1)
[2020-05-24] MEDS ORDERED: dexAMETHasone 4 MG TAB PO ONE (08:00)
[2020-05-24] MEDS ORDERED: dexAMETHasone 10 MG in SYRINGE 0 ML IV SCH (08:00)
--- NOTE | 2020-05-24 08:16 | Progress Notes ---
DATE: 05/24/2020 SUBJECTIVE: Postop check status post left total hip replacement. The patient is doing well, has no major issues. IV failed. At this point in time is requesting not to be restarted. She is ready for discharge today. OBJECTIVE: Vital signs are stable. She is afebrile. Hematocrit stable. Neurovascular check femoral sciatic nerve is normal. Wound dressing clean, dry and intact. ASSESSMENT: Doing well. Discharge to home today. Give steroid orally and convert Toradol to IM. Discharge today.
[2020-05-24] MEDS: ASCORBIC ACID 500 MG TAB PO SCH (09:00)
[2020-05-24] MEDS ORDERED: ASPIRIN 81 MG ECTAB PO SCH (09:00)
[2020-05-24] MEDS: FERROUS GLUCONATE 324 MG TAB PO SCH (09:00)
[2020-05-24] MEDS: cloNIDine HCL 0.1 MG TAB PO SCH (09:01)
[2020-05-24] MEDS: SPIRONOLACTONE 25 MG TAB PO SCH (09:01)
[2020-05-24] MEDS: DOCUSATE SODIUM 100 MG CAP PO SCH (09:01)
[2020-05-24] MEDS: MAGNESIUM OXIDE 400 MG TAB PO SCH ×2 (09:01→09:13)
[2020-05-24] MEDS: BUMETANIDE 1 MG TAB PO SCH (09:01)
[2020-05-24] MEDS: FELODIPINE 5 MG TABCR PO SCH (09:02)
[2020-05-24] MEDS: FAMOTIDINE 20 MG TAB PO SCH (09:02)
[2020-05-24] MEDS: INSULIN ASPART 100 UNITS/ML 3 ML PEN SC SCH (09:02)
[2020-05-24] MEDS: MULTIVITAMIN TAB PO SCH (09:02)
--- NOTE | 2020-05-24 09:16 | Orthopedic Progress Note ---
Date of Service May 24, 2020 Assessment & Plan (1) Status post total hip replacement, right: Patient's dressing was changed this morning by me. PT/OT this morning. Anticipate discharge to home today with home health services. Continue Coumadin 4 mg daily. Obtain new INR on Thursday. Keep the hip dressing in place through Thursday, and then change as needed for soiling. Follow-up in the office in 2 weeks for staple removal. Call the office with any other concerns. Per patient request, will use [place] 5 mg for pain control postoperatively. Admission and Anticipated Discharge Date Admission Date: May 23, 2020 Subjective Patient is seen in her room this morning. She states she is doing well. She would like to go home today. Denies any chest pain, shortness of breath, nausea, vomiting, or abdominal pain. She has been up and ambulatory. Her hip hurts less than preop. Review of Systems Review of Systems: Unchanged from yesterday Physical Exam Physical Exam: General: Well-developed, well-nourished, elderly white female, in no acute distress. Sitting in a chair. Alert and oriented. Skin: Warm dry with good turgor. No rashes or lesions. No ecchymosis or edema at her left hip. No active drainage. Musculoskeletal: Postoperative dressings are dry. Upon removal, she has scant dried drainage on the dressings. No active bleeding. [place] are intact. Wound edges are well approximated. No ecchymosis yet. Patient is able to stand easily from a chair using her walker. Intact motor function to her toes and ankle. Neurologic: Gross sensation is intact across both lower extremities by soft touch. Peripheral pulses are 2+. Results & Data ([facility]) Vital Signs (Past 12 Hours) Vital Signs Temp Pulse Resp BP Pulse Ox 05/24/20 07:31 36.5 C 66 18 159/81 H 97 05/24/20 02:38 36.8 C 68 16 130/73 96 05/23/20 22:39 36.8 C 83 18 152/80 H 97 Laboratory Results H&H obtained this morning are 12.6 and 38.4. INR is 1.2. BMP is normal. Blood sugars have been well controlled.
[2020-05-24] MEDS ORDERED: WARFARIN SOD 5 MG TAB PO STA (10:55)
== END 2020-05-24 11:51 | disposition home health service (06) ==
LOC: ASU 05:17 → 3N 05:17

== ENCOUNTER 2024-11-09 04:23 | Inpatient (IN) ==
--- NOTE | 2024-11-09 04:26 | Emergency Department Note ---
Impression & Plan Acute dehydration, Atrial fibrillation with rapid ventricular response, Stroke- like symptoms, Confusion, Hypocalcemia ED Provider Note NAME: UMBERTO RUTLEDGE AGE: 84 SEX: F : 1940 ARRIVES VIA: Ambulance INFORMANT: Patient, EMS, son ED PROVIDER(S): Geraldo Mccormack MD CHIEF COMPLAINT: Confusion, slurred speech MEDICAL DECISION MAKING: Patient presents for the above. Patient was ordered IV fluids as well as IV Rocephin in light of the patient's recent admission and UTI. Patient not a TNK candidate as the patient reportedly might of had a change in mentation beginning yesterday also on Eliquis. Patient's blood work shows a normal white count hemoglobin of 10.4. Patient's platelet count is unremarkable. Kidney function unremarkable. Calcium low at 8.1 as well as magnesium 1.6. Ordered calcium and magnesium for replacement. Procalcitonin is elevated because of this the patient was ordered blood cultures and lactate. Urinalysis does not show evidence of obvious infection. Ketones positive. The patient was ordered additional IV fluids. 30 cc/kg bolus not ordered initially given the patient's A-fib with RVR. Further fluid administration deferred to the inpatient service. IV was established and blood work was obtained. Discussion w/ other healthcare providers: None Prior /Outside records reviewed: I reviewed part of a cardiology visit from Dr. Esquivel from September 14 patient with known history of paroxysmal A-fib long-term anticoagulant use and hypercholesterolemia and hypertension. Patient is on Eliquis. Differential diagnosis: Infection, dehydration, metabolic abnormality, hypo/hyperglycemia, electrolyte imbalance, anemia, UTI, pneumonia, thyroid dysfunction among others were considered. Diagnostics, as interpreted by me: ECG: A-fib RVR rate 133, normal axis. No ST elevations. Cardiac monitoring: An order was placed for continuous cardiac monitoring. The monitor shows a rate of 132 with irregular irregular rhythm. Patient was placed on pulse oximetry Medical decision rules: None Imaging studies: I informally interpreted the patient's CT head does not show obvious ICH with formal report to follow. HPI: Patient presents due to concern for confusion and strokelike symptoms. The son reportedly saw the patient around 1:30 PM yesterday and when he left around 6 patient had a mild change in behavior stated that the patient seemed to be "off." Patient did have a recent admission and discharge for sepsis and associated UTI currently on Keflex as an outpatient. No reported falls or trauma. The patient reportedly did have a headache this morning Kenan was notified for a possible fall with patient was sitting on the side of the bed and confused. They noticed some slurred speech. The patient does take Eliquis no history of A-fib. Patient denies any chest pain or shortness of breath. Patient does not believe that she struck her head. PAST MEDICAL HISTORY: See Below PAST SURGICAL HISTORY: See Below SOCIAL HISTORY: See Below HOME MEDICATIONS: See Below ALLERGIES: See Below VITALS: See Below PHYSICAL EXAMINATION: GENERAL: NAD, non-toxic. Wearing glasses. EYE EXAM: Normal conjunctiva. PERRL, no anisocoria and EOM's grossly intact w/o pain. OROPHARYNX: Dry mucus membranes, grossly normal dentition. NECK: Trachea midline, no stridor. Supple, no nuchal rigidity, no adenopathy, non-tender. No signs of meningismus. FROM of the neck with good chin to chest and neck extension. LUNGS: Clear to auscultation. Normal chest wall mechanics. HEART: Irregular irregular and tachycardic, no MRG. ABDOMEN: Abdomen soft, non-tender, no masses, no rebound or guarding. BACK: No CVA TTP. SKIN: No rashes and no bruising. UPPER EXTREMITIES: Upper extremities are grossly normal. LOWER EXTREMITIES: Grossly normal, no edema. NEURO EXAM: A&O x3, cranial nerves II-XII grossly intact, normal speech, moves all 4 extremities. 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 Joiner 06/06/21 Depression (Chronic) Diabetes mellitus type 2 with complications (Acute) Diabetic neuropathy (Acute) Hypercholesterolemia (Chronic) Hypertension (Chronic) Hypothyroidism (Chronic) Acid reflux disease (Chronic) Anemia (Chronic) Anxiety (Chronic) Lichen sclerosus et atrophicus Prolapse of female pelvic organs Reaction to influenza immunization Family history of BRCA gene mutation Varicose veins of both legs with edema Abdominal pain Carpal tunnel syndrome on both sides Dysuria Carpal tunnel syndrome Lower extremity edema (Chronic) Ventral hernia Chronic kidney disease, stage 3 Stable- follows with nephro Medical History COVID-19 Edema To lower extremities - PCP working up (had LE u/s, ECHO) Hearing deficit BL VALLE Bilateral hearing aids Macular degeneration Curvature of spine S/p multiple lumbar surgeries GERD (gastroesophageal reflux disease) Well controlled and stable Hypothyroidism Diabetes mellitus, type 2 NIDDM- glucose fluctuates History of breast cancer Left - lumpectomy + radiation - 2004 Anxiety Hypertension Hyperlipidemia Surgical History S/P total hip arthroplasty 05/23/20 Dr. Brodie Pearson- Left BLANKA with dual mobility cup Status post total hip replacement, right History of hysteroscopy W/ POLYPECTOMY History of cataract surgery right and left History of right knee joint replacement History of lumbar surgery x 3 History of colonoscopy History of breast biopsy H/O tubal ligation H/O tooth extraction H/O dilation and curettage H/O colonoscopy History of cholecystectomy H/O section S/P lumpectomy, left breast S/P appendectomy Family History Mother , age 80 Ovarian cancer Diabetes Brother Prostate cancer Lung cancer Kidney stones Diabetes Cardiac disorder Colorectal cancer, Onset Age: 66 Father Cardiac disorder Myocardial infarction Grandmother (Maternal) Breast cancer Family/Other Breast cancer BRCA 2 positive Cancer Pancreatic cancer Ovarian cancer Daughter No problems noted. 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 How many Children do You have: 3 Feels Safe at Home: Yes Childhood Exposure to Second-Hand Smoke: No Diet: regular caffeine: Yes Dental Care, Regularly: No Physical Activity Frequency: 3-4 Times per Week Seatbelt Use: always Sunscreen Use: No Do you think of yourself as: straight/heterosexual Gender Identity: Female Assistive Devices: Denture - Upper, Denture - Lower, Glasses, Hearing Aid - Bilateral and Walker Allergies Allergies Allergy/AdvReac Type Severity Reaction Status Date / Time No Known Drug Allergies Allergy Unknown Verified 10/28/24 10:11 Home Meds Home Medications Medication Instructions Recorded Confirmed ascorbic acid (vitamin C) 1,000 mg 500 mg PO QAM 07/04/19 11/09/24 tablet potassium gluconate 595 mg (99 mg) 1,190 mg PO QDD 07/04/19 10/28/24 tablet cholecalciferol (vitamin D3) 25 1,000 units PO QAM 04/17/20 11/09/24 mcg (1,000 unit) capsule calcium 600 mg (as 1 tab PO QAM 05/14/21 11/09/24 carbonate)-vitamin D3 5 mcg (200 unit) tablet apixaban 5 mg tablet 5 mg PO BID 05/19/24 11/09/24 alprazolam 0.5 mg tablet (Xanax) 0.5 mg PO DAILY PRN y 07/20/24 11/09/24 Colace 100 mg 11/09/24 PreserVision AREDS-2 11/09/24 bumetanide 0.5 mg tablet mg 11/09/24 cephalexin 500 mg capsule 500 mg 11/09/24 ergocalciferol (vitamin D2) 11/09/24 glipizide 5 mg tablet, extended mg PO 11/09/24 release 24 hr potassium chloride mg 11/09/24 spironolactone 25 mg tablet mg 11/09/24 Previous Rx's Medication Instructions Recorded levothyroxine 50 mcg tablet 50 mcg PO QAM #90 tabs 06/30/24 omeprazole 20 mg capsule,delayed 20 mg PO HS #90 caps 06/30/24 release simvastatin 20 mg tablet 20 mg PO HS #90 tabs 06/30/24 metformin 1,000 mg tablet 1,000 mg PO BID #180 tabs 09/27/24 diltiazem HCl 240 mg 240 mg PO DAILY #90 caps 10/12/24 capsule,extended release 24 hr Results & Data (ED) Vital Signs Vital Signs - 24 hr 11/09/24 04:40 11/09/24 04:48 11/09/24 04:51 Temperature 37 C Temperature Source Oral Pulse Rate 138 H Pulse Rate [Apical] 129 H Pulse Rate from SpO2 Sensor Respiratory Rate 18 Respiratory Effort / Characteristics Non-Labored Spontaneous Respiratory Depth Normal Blood Pressure Blood Pressure [Right Arm] 141/110 H Blood Pressure Mean Blood Pressure Mean [Right Arm] 120 Pulse Oximetry 95 Oxygen Delivery Method Room Air Sepsis Recent Fever Within 48 Hours No Sepsis New/Unexplained Change in Mental Status Yes Sepsis Action Taken by Nursing No Action Required 11/09/24 05:01 11/09/24 05:03 11/09/24 05:27 Temperature Temperature Source Pulse Rate 134 H 135 H Pulse Rate [Apical] Pulse Rate from SpO2 Sensor 134 H 127 H Respiratory Rate 16 18 Respiratory Effort / Characteristics Respiratory Depth Blood Pressure 144/75 H Blood Pressure [Right Arm] Blood Pressure Mean 100 Blood Pressure Mean [Right Arm] Pulse Oximetry 96 96 97 Oxygen Delivery Method Room Air Room Air Room Air Sepsis Recent Fever Within 48 Hours Sepsis New/Unexplained Change in Mental Status Sepsis Action Taken by Nursing 11/09/24 05:30 11/09/24 05:42 11/09/24 05:44 Temperature Temperature Source Pulse Rate 145 H Pulse Rate [Apical] Pulse Rate from SpO2 Sensor 135 H Respiratory Rate 23 Respiratory Effort / Characteristics Respiratory Depth Blood Pressure 159/111 H 138/93 Blood Pressure [Right Arm] Blood Pressure Mean 121 124 Blood Pressure Mean [Right Arm] Pulse Oximetry 97 Oxygen Delivery Method Room Air Sepsis Recent Fever Within 48 Hours Sepsis New/Unexplained Change in Mental Status Sepsis Action Taken by Nursing 11/09/24 05:44 11/09/24 05:44 11/09/24 05:57 Temperature Temperature Source Pulse Rate 143 H Pulse Rate [Apical] Pulse Rate from SpO2 Sensor 141 H Respiratory Rate 15 Respiratory Effort / Characteristics Respiratory Depth Blood Pressure 138/93 138/93 Blood Pressure [Right Arm] Blood Pressure Mean 124 124 Blood Pressure Mean [Right Arm] Pulse Oximetry 95 Oxygen Delivery Method Room Air Sepsis Recent Fever Within 48 Hours Sepsis New/Unexplained Change in Mental Status Sepsis Action Taken by Nursing 11/09/24 05:58 11/09/24 06:00 11/09/24 06:30 Temperature Temperature Source Pulse Rate 135 H 136 H Pulse Rate [Apical] Pulse Rate from SpO2 Sensor 136 H Respiratory Rate 20 Respiratory Effort / Characteristics Respiratory Depth Blood Pressure 131/105 H 131/105 H 124/95 Blood Pressure [Right Arm] Blood Pressure Mean 120 99 Blood Pressure Mean [Right Arm] Pulse Oximetry 96 Oxygen Delivery Method Room Air Sepsis Recent Fever Within 48 Hours Sepsis New/Unexplained Change in Mental Status Sepsis Action Taken by [facility] Medications Current Medication List: was personally reviewed by me Laboratory Data Attestation: I reviewed the patient's lab results. 11/09/24 04:49 11/09/24 04:49 Lab Results 11/09/24 11/09/24 11/09/24 Range/Units 04:49 04:50 04:53 WBC 7.72 (4.8-10.8) K/ul RBC 3.97 L (4.20-5.40) M/uL Hgb 10.4 L (12.0-16.0) g/dl POC Hgb 10.9 L (12.0-16.0) g/dl Hct 33.6 L (37.0-47.0) % POC Hct 32 L (37-47) % MCV 84.6 (80.0-100.0) fL MCH 26.2 (25.0-34.0) pg MCHC 31.0 L (32.0-36.0) g/dL RDW Std Deviation 51.8 H (36.4-46.3) fL RDW Coeff of Gonzalo 16.6 H (11.5-14.5) % Plt Count 168 (130-400) K/uL MPV 10.2 (9.4-12.4) fL Immature Gran % (Auto) 0.3 % Neut % (Auto) 89.1 % Lymph % (Auto) 4.4 % [place] % (Auto) 5.3 % Eos % (Auto) 0.5 % Baso % (Auto) 0.4 % Reticulocyte % (Auto) 0.31 L (0.50-2.00) % Neut # (Auto) 6.88 H (1.40-6.50) K/uL Lymph # (Auto) 0.34 L (1.20-3.40) K/uL [place] # (Auto) 0.41 (0.11-0.59) K/uL Eos # (Auto) 0.04 (0.00-0.50) K/uL Baso # (Auto) 0.03 (0.00-0.20) K/uL Reticulocyte # 0.010 L (0.020-0.100) 10^6/uL Immature Gran # (Auto) 0.02 (0.01-0.20) K/uL PT 11.9 (9.0-12.0) Seconds INR 1.1 (0.9-1.1) APTT 32 H (21-31) Seconds PTT Ratio 1.2 POC Sodium 138 (135-144) mmol/L Sodium 137 (136-145) mmol/L POC Potassium 3.3 (3.3-5.0) mmol/L Potassium 3.3 L (3.5-5.1) mmol/L POC Chloride 101 (101-112) mmol/L Chloride 104 (98-107) mmol/L Carbon Dioxide 24 (21-32) mmol/L POC Total CO2 22 L (24-31) mmol/L Anion Gap 9 (3-11) POC Anion Gap 19.0 (16-25) mmol/L POC BUN 11 (7-18) mg/dl BUN 12 (6-23) mg/dl Creatinine 0.57 L (0.6-1.2) mg/dl POC Creatinine 0.6 (0.6-1.3) mg/dl Est Cr Clr Drug Dosing 84.8 ml/min eGFR 90.68 BUN/Creatinine Ratio 21.1 H (10-20) Glucose 180 H (70-99(Fasting)) mg/dl POC Glucose (other) 173 H (70-99) mg/dl Estimat Average Glucose 169 mg/dl Hemoglobin A1c 7.5 H (4.5-5.6) % Calcium 8.1 L (8.6-10.3) mg/dl POC Ioniz Calcium [place] 1.09 L (1.12-1.32) mmol/l Magnesium 1.6 L (1.7-2.4) mg/dl Iron 68 (35-150) mcg/dl Transferrin 224 (200-360) mg/dl Ferritin 52.6 (8-388) ng/ml Total Bilirubin 0.3 (0.2-1.0) mg/dl AST 8 L (13-39) U/L ALT 5 L (7-52) U/L Alkaline Phosphatase 49 (34-104) U/L Troponin I High Sens 10.4 (0-14) pg/ml Total Protein 5.2 L (6.0-8.3) gm/dl Albumin 2.8 L (3.4-5.0) gm/dl Globulin 2.4 L (2.5-4.0) gm/dl Albumin/Globulin Ratio 1.2 (0.9-2) Vitamin B12 129 L (180-914) pg/ml Procalcitonin 4.30 H (0-0.5) ng/ml TSH 2.333 (0.300-4.500) uIu/ml Urine Color Urine Appearance (Clear) Urine pH (4.5-7.5) Ur Specific [place] (1.000-1.030) Urine Protein (Negative) Urine Glucose (UA) (Negative) Urine Ketones (Negative) Urine Blood (Negative) Urine Nitrite (Negative) Urine Bilirubin (Negative) Urine Urobilinogen (Negative) Ur Leukocyte Esterase (Negative) Blood Type A Positive Antibody Screen NEGATIVE 11/09/24 Range/Units 05:45 WBC (4.8-10.8) K/ul RBC (4.20-5.40) M/uL Hgb (12.0-16.0) g/dl POC Hgb (12.0-16.0) g/dl Hct (37.0-47.0) % POC Hct (37-47) % MCV (80.0-100.0) fL MCH (25.0-34.0) pg MCHC (32.0-36.0) g/dL RDW Std Deviation (36.4-46.3) fL RDW Coeff of Gonzalo (11.5-14.5) % Plt Count (130-400) K/uL MPV (9.4-12.4) fL Immature Gran % (Auto) % Neut % (Auto) % Lymph % (Auto) % [place] % (Auto) % Eos % (Auto) % Baso % (Auto) % Reticulocyte % (Auto) (0.50-2.00) % Neut # (Auto) (1.40-6.50) K/uL Lymph # (Auto) (1.20-3.40) K/uL [place] # (Auto) (0.11-0.59) K/uL Eos # (Auto) (0.00-0.50) K/uL Baso # (Auto) (0.00-0.20) K/uL Reticulocyte # (0.020-0.100) 10^6/uL Immature Gran # (Auto) (0.01-0.20) K/uL PT (9.0-12.0) Seconds INR (0.9-1.1) APTT (21-31) Seconds PTT Ratio POC Sodium (135-144) mmol/L Sodium (136-145) mmol/L POC Potassium (3.3-5.0) mmol/L Potassium (3.5-5.1) mmol/L POC Chloride (101-112) mmol/L Chloride (98-107) mmol/L Carbon Dioxide (21-32) mmol/L POC Total CO2 (24-31) mmol/L Anion Gap (3-11) POC Anion Gap (16-25) mmol/L POC BUN (7-18) mg/dl BUN (6-23) mg/dl Creatinine (0.6-1.2) mg/dl POC Creatinine (0.6-1.3) mg/dl Est Cr Clr Drug Dosing ml/min eGFR BUN/Creatinine Ratio (10-20) Glucose (70-99(Fasting)) mg/dl POC Glucose (other) (70-99) mg/dl Estimat Average Glucose mg/dl Hemoglobin A1c (4.5-5.6) % Calcium (8.6-10.3) mg/dl POC Ioniz Calcium [place] (1.12-1.32) mmol/l Magnesium (1.7-2.4) mg/dl Iron (35-150) mcg/dl Transferrin (200-360) mg/dl Ferritin (8-388) ng/ml Total Bilirubin (0.2-1.0) mg/dl AST (13-39) U/L ALT (7-52) U/L Alkaline Phosphatase (34-104) U/L Troponin I High Sens (0-14) pg/ml Total Protein (6.0-8.3) gm/dl Albumin (3.4-5.0) gm/dl Globulin (2.5-4.0) gm/dl Albumin/Globulin Ratio (0.9-2) Vitamin B12 (180-914) pg/ml Procalcitonin (0-0.5) ng/ml TSH (0.300-4.500) uIu/ml Urine Color Yellow Urine Appearance Clear (Clear) Urine pH 5.5 (4.5-7.5) Ur Specific [place] > 1.045 H (1.000-1.030) Urine Protein Negative (Negative) Urine Glucose (UA) Negative (Negative) Urine Ketones 2+ H (Negative) Urine Blood Negative (Negative) Urine Nitrite Negative (Negative) Urine Bilirubin Negative (Negative) Urine Urobilinogen Negative (Negative) Ur Leukocyte Esterase Negative (Negative) Blood Type Antibody Screen Administered Medications Magnesium Sulfate/Dextrose (Magnesium Sulfate / D5w) 1 gm in 100 mls @ 50 mls/hr IV Q2H YESSENIA Stop: 11/09/24 09:59 Last Admin: 11/09/24 06:02 Dose: 50 mls/hr Documented By: JUDE Discontinued Medications Sodium Chloride (Nss) 1,000 mls @ 999 mls/hr IV .Q1H1M ONE Stop: 11/09/24 06:01 Last Admin: 11/09/24 05:04 Dose: 999 mls/hr Documented By: LUIZ Ceftriaxone Sodium (Rocephin) 2,000 mg in 50 mls @ 100 mls/hr IV NOW STA Stop: 11/09/24 05:30 Last Infusion: 11/09/24 05:36 Dose: Infused Documented By: Admin: 11/09/24 05:07 Dose: 100 mls/hr Documented By: LUIZ Sodium Chloride (Nss) 500 mls @ 999 mls/hr IV .Q31M ONE Stop: 11/09/24 06:11 Last Admin: 11/09/24 06:03 Dose: 999 mls/hr Documented By: JUDE Ioversol (Optiray 320 125ml) 125 ml IV ONCE ONE Stop: 11/09/24 04:53 Last Admin: 11/09/24 04:52 Dose: 118 ml Documented By: LETTY Metoprolol Tartrate (Metoprolol Tartrate 1 Mg/Ml Vial) 2.5 mg IV NOW STA Stop: 11/09/24 05:48 Last Admin: 11/09/24 06:00 Dose: 2.5 mg Documented By: JUDE Imaging Data Radiologist's Impression: Head CT 11/09/24 04:20 EXAM: CT head/brain wo con CLINICAL HISTORY: NEURO SYMPTOMS, STROKE ALERT. TECHNIQUE: Axial non-contrast CT scan of the brain was performed from the skull base to the high parietal region. One of the following dose reduction techniques were utilized for this exam: Automated exposure control, adjustment of the mA and/or kV according to patient size, use of iterative reconstruction. COMPARISON: prior 07/13/2024 FINDINGS: Brain Parenchyma: There are multiple tiny ill-defined hypodense foci and small areas noted in the subcortical and periventricular white matter bilaterally associated with bilateral periventricular patchy symmetrical hypodense areas capping both ventricles, suggestive of microvascular ischemic changes. Normal attenuation of the cerebellum, and brainstem. No evidence of acute infarct, hemorrhage, or mass effect. No abnormal areas of hyperattenuation. Ventricular System and Subarachnoid Spaces: The ventricular system, cortical sulci, cerebellar folia, and basal cisterns are prominent and consistent with senile changes. No evidence of hydrocephalus. No evidence of subarachnoid hemorrhage or extra-axial fluid collections. Cerebellum and Brainstem: Normal size and signal. No masses, lesions, or areas of abnormal signal. Orbits: Normal appearance of the globes, optic nerves, and extraocular muscles. No evidence of orbital masses or abnormal density. Sinuses: Left sphenoid sinusitis. Mastoid Air Cells: Clear mastoid air cells. No evidence of mastoiditis. Skull and Meninges: Normal skull morphology. No evidence of meningeal thickening. IMPRESSION: 1. No acute intracranial hemorrhage or established territorial infarct. 2. Chronic microvascular ischemic changes. 3. Age-related brain involutional changes. 4. No significant interval changes. 5. Early changes of a stroke may not be detected on a CT scan. If there is strong clinical suspicion of stroke, further MRI with diffusion-weighted imaging is recommended. [facility]'s ER was called at [phone] at 4:14 AM TINSEL MACHINE OPERATOR, 11/09/2024, and Dr. Mccormack was informed regarding the negative stroke results. Electronically signed by Alondra Hendrix 11-09-2024 05:19 AM Head CTA 11/09/24 04:20 EXAM: CT angio head w con CLINICAL HISTORY: NEURO SYMPTOMS, STROKE ALERT. TECHNIQUE: CT angiography of the head was performed following the intravenous administration of iodinated contrast material. Contiguous axial images were obtained from the base of the skull to the vertex. Coronal and sagittal reformatted images were also reviewed. One of these 3D techniques was utilized: Maximum Intensity Pixel (MIP), 3D Reconstructed Images, Volume Rendered Images, Surface Shaded Rendering. One of the following dose reduction techniques was utilized for this exam. Automated exposure control, adjustment of the mA and/or kV according to patient size, and use of iterative reconstruction. COMPARISON: None. FINDINGS: Intracranial Arteries: Bilateral mild atheromatous calcifications of the cavernous portions of both ICAs, with no significant stenosis. The intracranial arteries, including the anterior cerebral arteries, middle cerebral arteries, posterior cerebral arteries, basilar artery, and vertebral arteries, are all patent without evidence of significant stenosis, aneurysm, or dissection. There is no evidence of vascular malformations. [place]: The [place] is intact with no anatomical variations or abnormalities noted. All segments are well-visualized and normal in appearance. Venous System: The visualized portions of the venous system, including the dural venous sinuses, are patent with no evidence of thrombosis. Brain Parenchyma: Chronic microvascular ischemic changes. Age-related brain involutional changes. Bones: The bony structures of the skull are intact without evidence of fracture or destructive lesions. Soft Tissues: The visualized soft tissues of the head are unremarkable. Additional Findings: No other significant findings are noted. IMPRESSION: 1. Bilateral mild atheromatous calcifications of the cavernous portions of both ICAs, with no significant stenosis. 2. Otherwise, unremarkable CTA brain study. Electronically signed by Alondra Hendrix 11-09-2024 05:21 AM Neck CTA 11/09/24 04:20 EXAM: CT angio neck with con CLINICAL HISTORY: NEURO SYMPTOMS, STROKE ALERT, 118 ML OPTIRAY 320 TECHNIQUE: Contrast enhanced thin slice CT angiography scan of the carotid vessels was performed with intravenous contrast. Angiographic images were processed, 3D MIP images were acquired for interpretation. Contiguous axial images were obtained. Reformatted coronal and sagittal images were also reviewed. If IV contrast material had not been administered, the likelihood of detecting abnormalities relevant to the patient's condition would have been substantially decreased. CT scan was performed according to ALARA (as low as reasonable achievable). COMPARISON: None. FINDINGS: Bovine configuration of the aortic arch is noted. Few eccentric atherocalcific plaques are seen at bilateral carotid bifurcation without significant stenosis. Eccentric mixed plaques are noted in the cavernous portion of left internal carotid artery causing mild luminal narrowing. Eccentric plaques are noted in the cavernous portion of right internal carotid artery without significant luminal narrowing. Right internal carotid artery demonstrates retropharyngeal course. Left sphenoid sinus shows opacification with internal hyperdense contents and thickened santos, suggesting chronic sinusitis. Degenerative changes are noted in the visualized spine. IMPRESSION: 1. 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 2. Bovine arch variant. 3. 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 Electronically signed by Trell Ahuja 11-09-2024 05:58 AM Chest X-Ray 11/09/24 04:25 EXAM: XR chest 1V portable CLINICAL HISTORY: STROKE ALERT. TECHNIQUE: An X-ray image of the chest is obtained in AP projection. COMPARISON: X-ray dated 07/13/2024. FINDINGS: Pulmonary Parenchyma: Bilateral accentuated lung markings with peribronchial cuffing and bilateral prominent hilar shadows. Further evaluation is recommended No evidence of consolidation, collapse, or focal opacities. No pulmonary nodules are identified. No evidence of pleural effusion or pleural thickening. Heart and Mediastinum: Heart size and shape are normal. No mediastinal widening or masses. No hilar or mediastinal lymphadenopathy. 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 Decrease bone density. The bony thorax appears intact without fractures or deformities. Soft Tissues: Soft tissues overlying the chest wall are unremarkable. IMPRESSION: 1. No interval changes regarding the bilateral accentuated lung markings with peribronchial cuffing. 2. Progression in size of the bilateral prominent hilar shadows. Further evaluation is recommended. Electronically signed by Alondra Hendrix 11-09-2024 05:45 AM Discharge Plan Visit Data Chief Complaint: Stroke Alert Stated Complaint: STROKE ALERT ED Provider: Geraldo Mccormack Discharge Problem: Acute dehydration, Atrial fibrillation with rapid ventricular response, Stroke- like symptoms, Confusion, Hypocalcemia Forms Stand Alone Forms: [facility] Prescriptions Prescriptions: No Action levothyroxine 50 mcg tablet 50 mcg PO QAM Qty: 90 3RF omeprazole 20 mg capsule,delayed release(DR/EC) 20 mg PO HS Qty: 90 3RF simvastatin 20 mg tablet 20 mg PO HS Qty: 90 3RF metformin 1,000 mg tablet 1,000 mg PO BID Qty: 180 0RF diltiazem HCl 240 mg capsule,extended release 24hr 240 mg PO DAILY Qty: 90 3RF potassium gluconate 595 mg (99 mg) tablet 1,190 mg PO QDD ascorbic acid (vitamin C) 1,000 mg tablet 500 mg PO QAM alprazolam [Xanax] 0.5 mg tablet 0.5 mg PO DAILY PRN (Reason: y) Rx Instructions: 3 times a day as needed for anxiety apixaban 5 mg tablet 5 mg PO BID Rx Instructions: 1 tab twice a day cholecalciferol (vitamin D3) 1,000 unit capsule 1,000 units PO QAM calcium carbonate-vitamin D3 600 mg(1,500mg) -200 unit tablet 1 tab PO QAM glipizide 5 mg tablet extended release 24hr PO spironolactone 25 mg tablet Rx Instructions: 1 tab once a day cephalexin 500 mg capsule 500 mg Rx Instructions: three times a day for four days bumetanide 0.5 mg tablet Colace 100 mg Rx Instructions: docusate PreserVision AREDS-2 ergocalciferol (vitamin D2) Rx Instructions: Vitamin 02.80 mog potassium chloride 89 mg Rx Instructions: once a day Referrals Referrals: Cherelle Villavicencio MD [Primary Care Provider] -
[2024-11-09] MEDS: OPTIRAY 320 125ml IV ONE (04:52)
[2024-11-09] MEDS: SODIUM CHLORIDE 0.9% 1,000 ML IV ONE (05:04)
[2024-11-09 05:05] LABS: iSTAT Creatinine 0.6 mg/dl (0.6-1.3); iSTAT Hemoglobin 10.9 g/dl (12.0-16.0); iSTAT Ionized Calcium 1.09 mmol/l (1.12-1.32); iSTAT Potassium 3.3 mmol/L (3.3-5.0)
[2024-11-09 05:07] LABS: Basophils # (auto) 0.03 K/uL (0.00-0.20); Basophils % (auto) 0.4 %; Eosinophils # (auto) 0.04 K/uL (0.00-0.50); Eosinophils % (auto) 0.5 %; Hematocrit (blood only) 33.6 % (37.0-47.0); Hemoglobin 10.4 g/dl (12.0-16.0); Immature Granulocytes # (auto) 0.02 K/uL (0.01-0.20); Immature Granulocytes % (auto) 0.3 %; Lymphocytes # (auto) 0.34 K/uL (1.20-3.40); Lymphocytes % (auto) 4.4 %; Mean Corpuscular Hemoglobin 26.2 pg (25.0-34.0); Mean Corpuscular Volume 84.6 fL (80.0-100.0); Mean Platelet Volume 10.2 fL (9.4-12.4); Monocytes # (auto) 0.41 K/uL (0.11-0.59); Monocytes % (auto) 5.3 %; Neutrophils # (auto) 6.88 K/uL (1.40-6.50); Neutrophils % (auto) 89.1 %; Platelet Count 168 K/uL (130-400); RDW Coefficient of Variation 16.6 % (11.5-14.5); RDW Standard Deviation 51.8 fL (36.4-46.3); Red Blood Count 3.97 M/uL (4.20-5.40); White Blood Count 7.72 K/ul (4.8-10.8)
[2024-11-09] MEDS: cefTRIAXone SODIUM 2,000 MG/50 ML BAG IV STA (05:07)
--- NOTE | 2024-11-09 05:19 | CT Scan Report ---
EXAM: CT head/brain wo con CLINICAL HISTORY: NEURO SYMPTOMS, STROKE ALERT. TECHNIQUE: Axial non-contrast CT scan of the brain was performed from the skull base to the high parietal region. One of the following dose reduction techniques were utilized for this exam: Automated exposure control, adjustment of the mA and/or kV according to patient size, use of iterative reconstruction. COMPARISON: prior 07/13/2024 FINDINGS: Brain Parenchyma: There are multiple tiny ill-defined hypodense foci and small areas noted in the subcortical and periventricular white matter bilaterally associated with bilateral periventricular patchy symmetrical hypodense areas capping both ventricles, suggestive of microvascular ischemic changes. Normal attenuation of the cerebellum, and brainstem. No evidence of acute infarct, hemorrhage, or mass effect. No abnormal areas of hyperattenuation. Ventricular System and Subarachnoid Spaces: The ventricular system, cortical sulci, cerebellar folia, and basal cisterns are prominent and consistent with senile changes. No evidence of hydrocephalus. No evidence of subarachnoid hemorrhage or extra-axial fluid collections. Cerebellum and Brainstem: Normal size and signal. No masses, lesions, or areas of abnormal signal. Orbits: Normal appearance of the globes, optic nerves, and extraocular muscles. No evidence of orbital masses or abnormal density. Sinuses: Left sphenoid sinusitis. Mastoid Air Cells: Clear mastoid air cells. No evidence of mastoiditis. Skull and Meninges: Normal skull morphology. No evidence of meningeal thickening. IMPRESSION: 1. No acute intracranial hemorrhage or established territorial infarct. 2. Chronic microvascular ischemic changes. 3. Age-related brain involutional changes. 4. No significant interval changes. 5. Early changes of a stroke may not be detected on a CT scan. If there is strong clinical suspicion of stroke, further MRI with diffusion-weighted imaging is recommended. 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 Mccormack was informed regarding the negative stroke results. Electronically signed by Alondra Hendrix 11-09-2024 05:19 AM
--- NOTE | 2024-11-09 05:21 | CT Scan Report ---
EXAM: CT angio head w con CLINICAL HISTORY: NEURO SYMPTOMS, STROKE ALERT. TECHNIQUE: CT angiography of the head was performed following the intravenous administration of iodinated contrast material. Contiguous axial images were obtained from the base of the skull to the vertex. Coronal and sagittal reformatted images were also reviewed. One of these 3D techniques was utilized: Maximum Intensity Pixel (MIP), 3D Reconstructed Images, Volume Rendered Images, Surface Shaded Rendering. One of the following dose reduction techniques was utilized for this exam. Automated exposure control, adjustment of the mA and/or kV according to patient size, and use of iterative reconstruction. COMPARISON: None. FINDINGS: Intracranial Arteries: Bilateral mild atheromatous calcifications of the cavernous portions of both ICAs, with no significant stenosis. The intracranial arteries, including the anterior cerebral arteries, middle cerebral arteries, posterior cerebral arteries, basilar artery, and vertebral arteries, are all patent without evidence of significant stenosis, aneurysm, or dissection. There is no evidence of vascular malformations. Russell of [place]: The Russell of [place] is intact with no anatomical variations or abnormalities noted. All segments are well-visualized and normal in appearance. Venous System: The visualized portions of the venous system, including the dural venous sinuses, are patent with no evidence of thrombosis. Brain Parenchyma: Chronic microvascular ischemic changes. Age-related brain involutional changes. Bones: The bony structures of the skull are intact without evidence of fracture or destructive lesions. Soft Tissues: The visualized soft tissues of the head are unremarkable. Additional Findings: No other significant findings are noted. IMPRESSION: 1. Bilateral mild atheromatous calcifications of the cavernous portions of both ICAs, with no significant stenosis. 2. Otherwise, unremarkable CTA brain study. Electronically signed by Alondra Hendrix 11-09-2024 05:21 AM
[2024-11-09 05:22] LABS: Albumin Globulin Ratio 1.2 (0.9-2); Albumin Level 2.8 gm/dl (3.4-5.0); BUN Creatinine Ratio 21.1 (10-20); Bilirubin,Total 0.3 mg/dl (0.2-1.0); Calcium 8.1 mg/dl (8.6-10.3); Creatinine Clr Calc Pharmacy 84.8 ml/min; Globulin 2.4 gm/dl (2.5-4.0); Magnesium 1.6 mg/dl (1.7-2.4); Potassium 3.3 mmol/L (3.5-5.1); Total Protein 5.2 gm/dl (6.0-8.3)
[2024-11-09 05:27] LABS: Troponin I High Sensitivity 10.4 pg/ml (0-14)
[2024-11-09 05:35] LABS: INR 1.1 (0.9-1.1); Partial Thromboplastin Ratio 1.2; Partial Thromboplastin Time 32 Seconds (21-31); Prothrombin Time 11.9 Seconds (9.0-12.0)
--- NOTE | 2024-11-09 05:45 | XRay Report ---
EXAM: XR chest 1V portable CLINICAL HISTORY: STROKE ALERT. TECHNIQUE: An X-ray image of the chest is obtained in AP projection. COMPARISON: X-ray dated 07/13/2024. FINDINGS: Pulmonary Parenchyma: Bilateral accentuated lung markings with peribronchial cuffing and bilateral prominent hilar shadows. Further evaluation is recommended No evidence of consolidation, collapse, or focal opacities. No pulmonary nodules are identified. No evidence of pleural effusion or pleural thickening. Heart and Mediastinum: Heart size and shape are normal. No mediastinal widening or masses. No hilar or mediastinal lymphadenopathy. 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 Decrease bone density. The bony thorax appears intact without fractures or deformities. Soft Tissues: Soft tissues overlying the chest wall are unremarkable. IMPRESSION: 1. No interval changes regarding the bilateral accentuated lung markings with peribronchial cuffing. 2. Progression in size of the bilateral prominent hilar shadows. Further evaluation is recommended. Electronically signed by Alondra Hendrix 11-09-2024 05:45 AM
--- NOTE | 2024-11-09 05:58 | CT Scan Report ---
EXAM: CT angio neck with con CLINICAL HISTORY: NEURO SYMPTOMS, STROKE ALERT, 118 ML OPTIRAY 320 TECHNIQUE: Contrast enhanced thin slice CT angiography scan of the carotid vessels was performed with intravenous contrast. Angiographic images were processed, 3D MIP images were acquired for interpretation. Contiguous axial images were obtained. Reformatted coronal and sagittal images were also reviewed. If IV contrast material had not been administered, the likelihood of detecting abnormalities relevant to the patient's condition would have been substantially decreased. CT scan was performed according to ALARA (as low as reasonable achievable). COMPARISON: None. FINDINGS: Bovine configuration of the aortic arch is noted. Few eccentric atherocalcific plaques are seen at bilateral carotid bifurcation without significant stenosis. Eccentric mixed plaques are noted in the cavernous portion of left internal carotid artery causing mild luminal narrowing. Eccentric plaques are noted in the cavernous portion of right internal carotid artery without significant luminal narrowing. Right internal carotid artery demonstrates retropharyngeal course. Left sphenoid sinus shows opacification with internal hyperdense contents and thickened santos, suggesting chronic sinusitis. Degenerative changes are noted in the visualized spine. IMPRESSION: 1. 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 2. Bovine arch variant. 3. 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 Electronically signed by Trell hAuja 11-09-2024 05:58 AM
[2024-11-09] MEDS: METOPROLOL TARTRATE 1 MG/ML VIAL IV STA (06:00)
[2024-11-09] MEDS: MAGNESIUM SULFATE / D5W 1 GM/100 ML BAG IV SCH (06:02)
[2024-11-09] MEDS: SODIUM CHLORIDE 0.9% 500 ML IV ONE (06:03)
[2024-11-09 06:14] LABS: Appearance Urine Clear (Clear); Bilirubin Urine Negative (Negative); Blood Urine Negative (Negative); Color Urine Yellow; Glucose Urine UA Negative (Negative); Ketones Urine 2+ (Negative); Leukocyte Esterase Urine Negative (Negative); Nitrite Urine Negative (Negative); Protein Urine Negative (Negative); Specific Gravity Urine > 1.045 (1.000-1.030); Urobilinogen Urine Negative (Negative); pH Urine 5.5 (4.5-7.5)
[2024-11-09 06:18] LABS: Reticulocyte % 0.31 % (0.50-2.00); Reticulocytes # 0.01 10^6/uL (0.020-0.100)
[2024-11-09 06:32] LABS: Thyroid Stimulating Hormone 2.333 uIu/ml (0.300-4.500)
[2024-11-09 06:38] LABS: Ferritin 52.6 ng/ml (8-388)
[2024-11-09 07:03] LABS: Estimated Average Glucose 169 mg/dl; Hemoglobin A1C 7.5 % (4.5-5.6)
[2024-11-09] MEDS ORDERED: AMIODARONE IV BOLUS & DRIP IV STA (07:18)
[2024-11-09] MEDS ORDERED: STAT IV Infusion **Titration per Protocol STA (07:18)
[2024-11-09] MEDS ORDERED: 0.2 MICRON FILTER SET 1 EACH IV STA (07:18)
[2024-11-09] MEDS ORDERED: PHARMACIST DISCHARGE MED REC CONSULT PRN (07:20)
[2024-11-09] MEDS ORDERED: traMADol HCL 50 MG TABLET PO PRN (07:23)
--- NOTE | 2024-11-09 07:49 | History & Physical Report ---
Date of Service November 09, 2024 Assessment & Plan (1) Encephalopathy: Plan: Encephalopathy Multifactorial: Acute CVA given new left-sided facial droop, history A-fib on Eliquis Sepsis, elevated procalcitonin, unknown source for now rule out lumbar spine source given back pain complaints, history surgery Rapid A-fib secondary to illness chronic diastolic heart failure (EF 50%, TTE 2023), patient on the dry side valvular heart disease (mild AR TR, TTE 2023) hx PVD hypertension, BP currently stable hyperlipidemia, on statin Rx left breast cancer status post surgery/BRCA gene mutation as per records DM2 on oral medications, suboptimal control as of recent hemoglobin A1c of 30 June 2024 hypothyroidism, euthyroid as of today's TSH New onset anemia, no obvious source of bleed for now, FOBT done at the ER was negative. past tobacco abuse PCU given rapid A-fib IV amiodarone in addition to patient's oral Cardizem for rate control for now to prevent abrupt BP swings given acute CVA concern Neurochecks CT head after 24 hours re: left-sided facial droop (Patient cannot tolerate MRI due to severe claustrophobia as per patient/family.) TTE for additional stroke workup Neurology consult Re: Left-sided facial droop CS, Vancomycin and cefepime CT abdomen pelvis re: back pain, Eliquis Rx, sepsis Hold Eliquis until CT results noted Anemia workup, transfuse PRBC if hemoglobin less than 8 and or for symptomatic anemia Further management contingent on workup results Basal bolus insulin adjusted for n.p.o. status, ISS BG goal 1 10-1 40, update hemoglobin A1c DVT prophylaxis. SCDs while Eliquis on hold Full code Patient son requesting updates providers. Mr. Anthony Mcgrath, contact #[phone]. Text document was generated using [employer] voice recognition software. It may contain grammatical or spelling errors. Kindly contact undersigned for clarification of any documentation item in question. History of Present Illness Chief Complaint: Facial droop Primary Care Provider: Cherelle Villavicencio MD History obtained from patient, family, and records. Patient is a fair historian. Medical history significant for chronic diastolic heart failure (EF 50%, TTE 2023), A-fib on Eliquis, PSVT, valvular heart disease (mild AR TR, TTE 2024), PVD, hypertension, hyperlipidemia, left breast cancer status post surgery, BRCA gene mutation as per records, DM2 on oral medications, hypothyroidism, GERD, recurrent UTIs, chronic lymphedema, chronic back pain status post surgery, anxiety disorder, past tobacco abuse. Recent confinement [facility] November 04 to 2023 for sepsis secondary to complicated UTI. No growth on urine CS. Patient discharged on Keflex course. Patient noted by family to be kind of off yesterday. Somewhat confused. This morning, patient had worsening of chronic back pain with some radiation to the legs. Had trouble walking from weakness. Headache which he attributed to antibiotics. Denies chest pain, cough, SOB. No abdominal pain, dysuria, diarrhea, or new leg wounds. Patient activated her medical alert device. Patient noted by EMS to have left facial droop and slurred speech. New as per family. Patient compliant with home medications. Patient noted to be in rapid A-fib upon arrival at the ER. IV ceftriaxone administered at the ER. 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 Allergies Allergy/AdvReac Type Severity Reaction Status Date / Time No Known Drug Allergies Allergy Unknown Verified 10/28/24 10:11 Home Medications Medication Instructions Recorded Confirmed Type ascorbic acid (vitamin C) 1,000 mg 500 mg PO QAM 07/04/19 11/09/24 History tablet potassium gluconate 595 mg (99 mg) 1,190 mg PO UD 07/04/19 11/09/24 History tablet cholecalciferol (vitamin D3) 25 1,000 units PO QAM 04/17/20 11/09/24 History mcg (1,000 unit) capsule calcium 600 mg (as 1 tab PO QAM 05/14/21 11/09/24 History carbonate)-vitamin D3 5 mcg (200 unit) tablet apixaban 5 mg tablet 5 mg PO BID 05/19/24 11/09/24 History levothyroxine 50 mcg tablet 50 mcg PO QA #90 tabs 06/30/24 11/09/24 Rx omeprazole 20 mg capsule,delayed 20 mg PO HS #90 caps 06/30/24 11/09/24 Rx release simvastatin 20 mg tablet 20 mg PO HS #90 tabs 06/30/24 11/09/24 Rx alprazolam 0.5 mg tablet (Xanax) 0.5 mg PO DAILY PRN y 07/20/24 11/09/24 History metformin 1,000 mg tablet 1,000 mg PO BID #180 tabs 09/27/24 11/09/24 Rx diltiazem HCl 240 mg 240 mg PO DAILY #90 caps 10/12/24 11/09/24 Rx capsule,extended release 24 hr Colace 100 mg PO DIRECTED 11/09/24 11/09/24 History PreserVision AREDS-2 1 cap PO DIRECTED 11/09/24 11/09/24 History bumetanide 0.5 mg tablet 0.5 mg PO DAILY 11/09/24 11/09/24 History cephalexin 500 mg capsule 500 mg PO DIRECTED 11/09/24 11/09/24 History ergocalciferol (vitamin D2) 1 cap PO DAILY 11/09/24 11/09/24 History glipizide 5 mg tablet, extended 5 mg PO UD 11/09/24 11/09/24 History release 24 hr potassium chloride 89 mg PO UD 11/09/24 11/09/24 History spironolactone 25 mg tablet 25 mg PO UD 11/09/24 11/09/24 History Past Med/Surg History Problem List (Updated 11/09/24 @ 08:53 by Walker Villanueva MD) Encephalopathy Hypocalcemia (Acute) Confusion (Acute) Stroke-like symptoms (Acute) Atrial fibrillation with rapid ventricular response (Acute) Acute dehydration (Acute) Traumatic open wound of left lower leg (Acute) Anticoagulant long-term use Paroxysmal atrial fibrillation Hematoma (Acute) Chronic acquired lymphedema (Chronic) Laceration of right ankle (Acute) 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 Joiner 06/06/21 Depression (Chronic) Diabetes mellitus type 2 with complications (Acute) Diabetic neuropathy (Acute) Hypercholesterolemia (Chronic) Hypertension (Chronic) Hypothyroidism (Chronic) Acid reflux disease (Chronic) Anemia (Chronic) Anxiety (Chronic) Lichen sclerosus et atrophicus Prolapse of female pelvic organs Reaction to influenza immunization Family history of BRCA gene mutation Varicose veins of both legs with edema Abdominal pain Carpal tunnel syndrome on both sides Dysuria Carpal tunnel syndrome Lower extremity edema (Chronic) Ventral hernia Chronic kidney disease, stage 3 Stable- follows with nephro Medical History COVID-19 Edema To lower extremities - PCP working up (had LE u/s, ECHO) Hearing deficit BL VALLE Bilateral hearing aids Macular degeneration Curvature of spine S/p multiple lumbar surgeries GERD (gastroesophageal reflux disease) Well controlled and stable Hypothyroidism Diabetes mellitus, type 2 NIDDM- glucose fluctuates History of breast cancer Left - lumpectomy + radiation - 2004 Anxiety Hypertension Hyperlipidemia Surgical History S/P total hip arthroplasty 05/23/20 Dr. Brodie Pearson- Left BLANKA with dual mobility cup Status post total hip replacement, right History of hysteroscopy W/ POLYPECTOMY History of cataract surgery right and left History of right knee joint replacement History of lumbar surgery x 3 History of colonoscopy History of breast biopsy H/O tubal ligation H/O tooth extraction H/O dilation and curettage H/O colonoscopy History of cholecystectomy H/O section S/P lumpectomy, left breast S/P appendectomy Family History Mother , age 80 Ovarian cancer Diabetes Brother Prostate cancer Lung cancer Kidney stones Diabetes Cardiac disorder Colorectal cancer, Onset Age: 66 Father Cardiac disorder Myocardial infarction Grandmother (Maternal) Breast cancer Family/Other Breast cancer BRCA 2 positive Cancer Pancreatic cancer Ovarian cancer Daughter No problems noted. 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 How many Children do You have: 3 Feels Safe at Home: Yes Childhood Exposure to Second-Hand Smoke: No Diet: regular caffeine: Yes Dental Care, Regularly: No Physical Activity Frequency: 3-4 Times per Week Seatbelt Use: always Sunscreen Use: No Do you think of yourself as: straight/heterosexual Gender Identity: Female Assistive Devices: Denture - Upper, Denture - Lower, Glasses, Hearing Aid - Bilateral and Walker Review of Systems Review of Systems: As per HPI, all other systems reviewed and negative Physical Exam Physical Exam: GENERAL: Comfortable, obese, dysarthric, no respiratory distress SKIN: Pallor , warm HEENT: Bespectacled, pale palpebral conjunctivae, no ptosis, left facial asymmetry, dry buccal mucosa NECK : Supple, short neck, no tenderness CHEST : Decreased breath sounds, no tenderness HEART : Irregular, tachycardic, no obvious murmurs ABDOMEN: Some distention, nontender BACK : Low back tenderness, negative SLR RECTAL : Intact sphincter, brown stool (FOBT negative) EXTREMITIES : Bilateral LE swelling without tenderness (chronic as per patient), no other conspicuous deformities noted NEUROLOGIC : Coherent, L facial asymmetry, dysarthric, MMTS BUE 4/5, BLE 3/5 Results & Data Results & Data Vital Signs (Past 12 Hours) Vital Signs Temp Pulse Pulse Resp BP BP Pulse Ox 11/09/24 06:30 136 H 20 124/95 96 11/09/24 06:00 135 H 131/105 H 11/09/24 05:58 131/105 H 11/09/24 05:57 143 H 15 95 11/09/24 05:44 138/93 11/09/24 05:44 138/93 11/09/24 05:44 138/93 11/09/24 05:42 145 H 23 97 11/09/24 05:30 159/111 H 11/09/24 05:27 135 H 18 97 11/09/24 05:03 96 11/09/24 05:01 134 H 16 144/75 H 96 11/09/24 04:51 37 C 129 H 18 141/110 H 95 11/09/24 04:48 138 H O2 Del Method 11/09/24 06:30 Room Air 11/09/24 06:00 11/09/24 05:58 11/09/24 05:57 Room Air 11/09/24 05:44 11/09/24 05:44 11/09/24 05:44 11/09/24 05:42 Room Air 11/09/24 05:30 11/09/24 05:27 Room Air 11/09/24 05:03 Room Air 11/09/24 05:01 Room Air 11/09/24 04:51 Room Air 11/09/24 04:48 Laboratory Results Laboratory Results WBC 7.72 K/ul (4.8-10.8) 11/09/24 04:49 RBC 3.97 M/uL (4.20-5.40) L 11/09/24 04:49 Hgb 10.4 g/dl (12.0-16.0) L 11/09/24 04:49 POC Hgb 10.9 g/dl (12.0-16.0) L 11/09/24 04:53 Hct 33.6 % (37.0-47.0) L 11/09/24 04:49 POC Hct 32 % (37-47) L 11/09/24 04:53 MCV 84.6 fL (80.0-100.0) 11/09/24 04:49 MCH 26.2 pg (25.0-34.0) 11/09/24 04:49 MCHC 31.0 g/dL (32.0-36.0) L 11/09/24 04:49 RDW Std Deviation 51.8 fL (36.4-46.3) H 11/09/24 04:49 RDW Coeff of Gonzalo 16.6 % (11.5-14.5) H 11/09/24 04:49 Plt Count 168 K/uL (130-400) 11/09/24 04:49 MPV 10.2 fL (9.4-12.4) 11/09/24 04:49 Immature Gran % (Auto) 0.3 % 11/09/24 04:49 Neut % (Auto) 89.1 % 11/09/24 04:49 Lymph % (Auto) 4.4 % 11/09/24 04:49 Gaston % (Auto) 5.3 % 11/09/24 04:49 Eos % (Auto) 0.5 % 11/09/24 04:49 Baso % (Auto) 0.4 % 11/09/24 04:49 Reticulocyte % (Auto) 0.31 % (0.50-2.00) L 11/09/24 04:49 Neut # (Auto) 6.88 K/uL (1.40-6.50) H 11/09/24 04:49 Lymph # (Auto) 0.34 K/uL (1.20-3.40) L 11/09/24 04:49 Gaston # (Auto) 0.41 K/uL (0.11-0.59) 11/09/24 04:49 Eos # (Auto) 0.04 K/uL (0.00-0.50) 11/09/24 04:49 Baso # (Auto) 0.03 K/uL (0.00-0.20) 11/09/24 04:49 Reticulocyte # 0.010 10^6/uL (0.020-0.100) L 11/09/24 04:49 Immature Gran # (Auto) 0.02 K/uL (0.01-0.20) 11/09/24 04:49 PT 11.9 Seconds (9.0-12.0) 11/09/24 04:49 INR 1.1 (0.9-1.1) 11/09/24 04:49 APTT 32 Seconds (21-31) H 11/09/24 04:49 PTT Ratio 1.2 11/09/24 04:49 POC Sodium 138 mmol/L (135-144) 11/09/24 04:53 Sodium 137 mmol/L (136-145) 11/09/24 04:49 POC Potassium 3.3 mmol/L (3.3-5.0) 11/09/24 04:53 Potassium 3.3 mmol/L (3.5-5.1) L 11/09/24 04:49 POC Chloride 101 mmol/L (101-112) 11/09/24 04:53 Chloride 104 mmol/L (98-107) 11/09/24 04:49 Carbon Dioxide 24 mmol/L (21-32) 11/09/24 04:49 POC Total CO2 22 mmol/L (24-31) L 11/09/24 04:53 Anion Gap 9 (3-11) 11/09/24 04:49 POC Anion Gap 19.0 mmol/L (16-25) 11/09/24 04:53 POC BUN 11 mg/dl (7-18) 11/09/24 04:53 BUN 12 mg/dl (6-23) 11/09/24 04:49 Creatinine 0.57 mg/dl (0.6-1.2) L 11/09/24 04:49 POC Creatinine 0.6 mg/dl (0.6-1.3) 11/09/24 04:53 Est Cr Clr Drug Dosing 84.8 ml/min 11/09/24 04:49 eGFR 90.68 11/09/24 04:49 BUN/Creatinine Ratio 21.1 (10-20) H 11/09/24 04:49 Glucose 180 mg/dl (70-99(Fasting)) H 11/09/24 04:49 POC Glucose (other) 173 mg/dl (70-99) H 11/09/24 04:53 Estimat Average Glucose 169 mg/dl 11/09/24 04:49 Hemoglobin A1c 7.5 % (4.5-5.6) H 11/09/24 04:49 Lactate 2.0 mmol/L (0.4-2.0) 11/09/24 07:10 Calcium 8.1 mg/dl (8.6-10.3) L 11/09/24 04:49 POC Ioniz Calcium [place] 1.09 mmol/l (1.12-1.32) L 11/09/24 04:53 Magnesium 1.6 mg/dl (1.7-2.4) L 11/09/24 04:49 Iron 68 mcg/dl (35-150) 11/09/24 04:49 Transferrin 224 mg/dl (200-360) 11/09/24 04:49 Ferritin 52.6 ng/ml (8-388) 11/09/24 04:49 Total Bilirubin 0.3 mg/dl (0.2-1.0) 11/09/24 04:49 AST 8 U/L (13-39) L 11/09/24 04:49 ALT 5 U/L (7-52) L 11/09/24 04:49 Alkaline Phosphatase 49 U/L (34-104) 11/09/24 04:49 Troponin I High Sens 10.4 pg/ml (0-14) 11/09/24 04:49 Total Protein 5.2 gm/dl (6.0-8.3) L 11/09/24 04:49 Albumin 2.8 gm/dl (3.4-5.0) L 11/09/24 04:49 Globulin 2.4 gm/dl (2.5-4.0) L 11/09/24 04:49 Albumin/Globulin Ratio 1.2 (0.9-2) 11/09/24 04:49 Vitamin B12 129 pg/ml (180-914) L 11/09/24 04:49 Procalcitonin 4.30 ng/ml (0-0.5) H 11/09/24 04:49 TSH 2.333 uIu/ml (0.300-4.500) 11/09/24 04:49 Urine Color Yellow 11/09/24 05:45 Urine Appearance Clear (Clear) 11/09/24 05:45 Urine pH 5.5 (4.5-7.5) 11/09/24 05:45 Ur Specific [place] > 1.045 (1.000-1.030) H 11/09/24 05:45 Urine Protein Negative (Negative) 11/09/24 05:45 Urine Glucose (UA) Negative (Negative) 11/09/24 05:45 Urine Ketones 2+ (Negative) H 11/09/24 05:45 Urine Blood Negative (Negative) 11/09/24 05:45 Urine Nitrite Negative (Negative) 11/09/24 05:45 Urine Bilirubin Negative (Negative) 11/09/24 05:45 Urine Urobilinogen Negative (Negative) 11/09/24 05:45 Ur Leukocyte Esterase Negative (Negative) 11/09/24 05:45 Blood Type A Positive 11/09/24 04:50 Antibody Screen NEGATIVE 11/09/24 04:[address] 11/09/24 04:20 EXAM: CT head/brain wo con CLINICAL HISTORY: NEURO SYMPTOMS, STROKE ALERT. TECHNIQUE: Axial non-contrast CT scan of the brain was performed from the skull base to the high parietal region. One of the following dose reduction techniques were utilized for this exam: Automated exposure control, adjustment of the mA and/or kV according to patient size, use of iterative reconstruction. COMPARISON: prior 07/13/2024 FINDINGS: Brain Parenchyma: There are multiple tiny ill-defined hypodense foci and small areas noted in the subcortical and periventricular white matter bilaterally associated with bilateral periventricular patchy symmetrical hypodense areas capping both ventricles, suggestive of microvascular ischemic changes. Normal attenuation of the cerebellum, and brainstem. No evidence of acute infarct, hemorrhage, or mass effect. No abnormal areas of hyperattenuation. Ventricular System and Subarachnoid Spaces: The ventricular system, cortical sulci, cerebellar folia, and basal cisterns are prominent and consistent with senile changes. No evidence of hydrocephalus. No evidence of subarachnoid hemorrhage or extra-axial fluid collections. Cerebellum and Brainstem: Normal size and signal. No masses, lesions, or areas of abnormal signal. Orbits: Normal appearance of the globes, optic nerves, and extraocular muscles. No evidence of orbital masses or abnormal density. Sinuses: Left sphenoid sinusitis. Mastoid Air Cells: Clear mastoid air cells. No evidence of mastoiditis. Skull and Meninges: Normal skull morphology. No evidence of meningeal thickening. IMPRESSION: 1. No acute intracranial hemorrhage or established territorial infarct. 2. Chronic microvascular ischemic changes. 3. Age-related brain involutional changes. 4. No significant interval changes. 5. Early changes of a stroke may not be detected on a CT scan. If there is strong clinical suspicion of stroke, further MRI with diffusion-weighted imaging is recommended. [facility]'s ER was called at [phone] at 4:14 AM ELECTRONIC DATA PROCESSING AUDITOR, 11/09/2024, and Dr. Mccormack was informed regarding the negative stroke results. Electronically signed by Alondra Hendrix 11-09-2024 05:19 AM Head CTA 11/09/24 04:20 EXAM: CT angio head w con CLINICAL HISTORY: NEURO SYMPTOMS, STROKE ALERT. TECHNIQUE: CT angiography of the head was performed following the intravenous administration of iodinated contrast material. Contiguous axial images were obtained from the base of the skull to the vertex. Coronal and sagittal reformatted images were also reviewed. One of these 3D techniques was utilized: Maximum Intensity Pixel (MIP), 3D Reconstructed Images, Volume Rendered Images, Surface Shaded Rendering. One of the following dose reduction techniques was utilized for this exam. Automated exposure control, adjustment of the mA and/or kV according to patient size, and use of iterative reconstruction. COMPARISON: None. FINDINGS: Intracranial Arteries: Bilateral mild atheromatous calcifications of the cavernous portions of both ICAs, with no significant stenosis. The intracranial arteries, including the anterior cerebral arteries, middle cerebral arteries, posterior cerebral arteries, basilar artery, and vertebral arteries, are all patent without evidence of significant stenosis, aneurysm, or dissection. There is no evidence of vascular malformations. [place]: The [place] is intact with no anatomical variations or abnormalities noted. All segments are well-visualized and normal in appearance. Venous System: The visualized portions of the venous system, including the dural venous sinuses, are patent with no evidence of thrombosis. Brain Parenchyma: Chronic microvascular ischemic changes. Age-related brain involutional changes. Bones: The bony structures of the skull are intact without evidence of fracture or destructive lesions. Soft Tissues: The visualized soft tissues of the head are unremarkable. Additional Findings: No other significant findings are noted. IMPRESSION: 1. Bilateral mild atheromatous calcifications of the cavernous portions of both ICAs, with no significant stenosis. 2. Otherwise, unremarkable CTA brain study. Electronically signed by Alondra Hendrix 11-09-2024 05:21 AM Neck CTA 11/09/24 04:20 EXAM: CT angio neck with con CLINICAL HISTORY: NEURO SYMPTOMS, STROKE ALERT, 118 ML OPTIRAY 320 TECHNIQUE: Contrast enhanced thin slice CT angiography scan of the carotid vessels was performed with intravenous contrast. Angiographic images were processed, 3D MIP images were acquired for interpretation. Contiguous axial images were obtained. Reformatted coronal and sagittal images were also reviewed. If IV contrast material had not been administered, the likelihood of detecting abnormalities relevant to the patient's condition would have been substantially decreased. CT scan was performed according to ALARA (as low as reasonable achievable). COMPARISON: None. FINDINGS: Bovine configuration of the aortic arch is noted. Few eccentric atherocalcific plaques are seen at bilateral carotid bifurcation without significant stenosis. Eccentric mixed plaques are noted in the cavernous portion of left internal carotid artery causing mild luminal narrowing. Eccentric plaques are noted in the cavernous portion of right internal carotid artery without significant luminal narrowing. Right internal carotid artery demonstrates retropharyngeal course. Left sphenoid sinus shows opacification with internal hyperdense contents and thickened santos, suggesting chronic sinusitis. Degenerative changes are noted in the visualized spine. IMPRESSION: 1. 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 2. Bovine arch variant. 3. 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 Electronically signed by Trell Ahuja 11-09-2024 05:58 AM Chest X-Ray 11/09/24 04:25 EXAM: XR chest 1V portable CLINICAL HISTORY: STROKE ALERT. TECHNIQUE: An X-ray image of the chest is obtained in AP projection. COMPARISON: X-ray dated 07/13/2024. FINDINGS: Pulmonary Parenchyma: Bilateral accentuated lung markings with peribronchial cuffing and bilateral prominent hilar shadows. Further evaluation is recommended No evidence of consolidation, collapse, or focal opacities. No pulmonary nodules are identified. No evidence of pleural effusion or pleural thickening. Heart and Mediastinum: Heart size and shape are normal. No mediastinal widening or masses. No hilar or mediastinal lymphadenopathy. 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 Decrease bone density. The bony thorax appears intact without fractures or deformities. Soft Tissues: Soft tissues overlying the chest wall are unremarkable. IMPRESSION: 1. No interval changes regarding the bilateral accentuated lung markings with peribronchial cuffing. 2. Progression in size of the bilateral prominent hilar shadows. Further evaluation is recommended. Electronically signed by Alondra Hendrix 11-09-2024 05:45 AM Diagnostic Findings EKG as per my interpretation :Rate 130, A-fib, LAD, LAFB, LVH, septal infarct, T wave abnormalities lateral leads Code Status & VTE Plan VTE Prophylaxis Plan VTE Prophylaxis will be ordered: Yes
[2024-11-09] MEDS: CALCIUM GLUCONATE 1,000 MG/60 ML BAG IV STA (07:51)
[2024-11-09] MEDS: AMIODARONE / D5W 150 MG/100 ML BAG IV STA (07:52)
[2024-11-09] MEDS: AMIODARONE / D5W 360 MG/200 ML BAG IV ONE (08:16)
[2024-11-09] MEDS ORDERED: VANCOMYCIN HCL 1,000 MG/270 ML BAG IV ONE (08:57)
[2024-11-09] MEDS ORDERED: VANCOMYCIN CONSULT ACTIVE PRN (08:57)
[2024-11-09] MEDS ORDERED: VANCOMYCIN 2,000 MG in D5W 500mL (Use w/ NSS Shortage) IV ONE (09:15)
--- NOTE | 2024-11-09 09:25 | CT Scan Report ---
ABDOMEN AND PELVIS CT WITHOUT CONTRAST CT DOSE: 1434.36 mGy.cm HISTORY: Acute generalized abdominal and low back pain with urinary tract infection back pain TECHNIQUE: Multiaxial CT images of the abdomen and pelvis were performed without contrast. A dose lo wering technique was utilized adhering to the principles of ALARA. COMPARISON STUDY: 05/21/2021 FINDINGS: Extensive coronary artery calcifications. The heart is normal in size. Mild bibasilar atele ctasis versus scarring. Study is limited secondary to upper extremity positioning, streak artifact fr om spinal hardware and lack of contrast. No pneumatosis or pneumoperitoneum. Unremarkable spleen, moderately trophic pancreas and adrenal glan ds. Cholecystectomy. Unremarkable liver. Contrast within the collecting systems and ureters from the same day CTA neck limits evaluation for renal or ureteral calculi. No upper urothelial lesion identified. Cortical thinning of the kidneys without hydronephrosis. Decom pressed bladder with Villanueva catheter in place. Unremarkable uterus. Atherosclerosis of the aorta. No l ymphadenopathy or retroperitoneal hematoma. No bowel obstruction or bowel wall thickening. Mild recta l wall thickening with partial distention. Mild colonic diverticulosis. The appendix is not visualize d. Left hip arthroplasty. Posterior interbody lopez and screw fusion at L3-L5. The right L4 screw exten ds into the L3-L4 disc space. Small subcutaneous contusion lateral to the right hip. IMPRESSION: 1. No acute intra-abdominal or intrapelvic abnormality identified. 2. Small subcutaneous contusion lateral to the right hip. No acute fracture identified. 3. Additional findings as above. ACT 112: Negative or not required by law. The above report was generated using voice recognition software. It may contain grammatical, syntax o r spelling errors. Electronically signed by: Anton Arriaga M.D. 11/09/2024 9:23 AM
[2024-11-09] MEDS: CEFEPIME 2000MG 2,000 MG/20 ML SYR IV ONE (09:35)
[2024-11-09] MEDS ORDERED: DEXTROSE 50% 50 ML SYRINGE IV PRN (10:21)
[2024-11-09] MEDS ORDERED: GLUCOSE 10 TAB/TUBE PO PRN (10:21)
[2024-11-09] MEDS ORDERED: CARBOHYDRATES FOR HYPOGLYCEMIA PO PRN (10:21)
[2024-11-09] MEDS ORDERED: GLUCOSE 40% GEL 15 GM TUBE PO PRN (10:21)
[2024-11-09] MEDS ORDERED: GLUCAGON FOR INJ 1 MG VIAL SQ PRN (10:21)
[2024-11-09] MEDS: VANCOMYCIN HCL 2,000 MG in SODIUM CHLORIDE 0.9% 500 ML IV ONE (10:24)
[2024-11-09] MEDS: dilTIAZem HCL 240 MG CAPCR PO SCH (11:20)
[2024-11-09] MEDS: MULTIVITAMIN TAB PO SCH (11:20)
[2024-11-09] MEDS: LEVOTHYROXINE SODIUM 50 MCG TABLET PO SCH (11:20)
--- NOTE | 2024-11-09 12:02 | Pharmacy Report ---
Pharmacy PK ABX Note - Date of Service November 09, 2024 - Assessment and Plan Assessment 84 year old F w/hx of HF, Afib, HTN, DM2, recurrent UTIs, chronic back pain s/p surgery who recently was hospitalized at [facility] for sepsis s/t UTI (discharged on Keflex) who presents today to the ER for facial droop/confusion/back pain. Patient PCT is elevated, along with elevated HR pt starting on vancomycin and cefepime to r/o sepsis of unknown source. Pertinent microbiologic data includes: blood cxs collected and are pending Day # 1 of antimicrobial therapy. Plan Vancomycin * Loading dose: 2000 mg IV x 1 * Maintenance dose: 1000 mg IV every 12 hours * Regimen is predicted to achieve target AUC/ANISA of 400-600 mg/L.hr * Vancomycin level will be ordered if vancomycin is continued beyond the empiric 48 hr duration. Pharmacy will continue to follow and will adjust dose/frequency as necessary. Thank you. Pharmacy has transitioned to AUC monitoring for vancomycin. AUC/ANISA is the preferred PK/PD target and is associated with decreased risk of nephrotoxicity compared to traditional trough targets.
[2024-11-09] MEDS: INSULIN ASPART PER UNIT CHARGE SC SCH ×2 (12:05→16:44)
[2024-11-09] MEDS: LANTUS PER UNIT CHARGE SQ SCH (12:06)
[2024-11-09] MEDS: AMIODARONE / D5W 360 MG/200 ML BAG IV SCH (13:45)
--- NOTE | 2024-11-09 16:05 | Cardiology Consultation ---
Date of Consultation November 09, 2024 Assessment & Plan (1) Paroxysmal atrial fibrillation: (2) Anticoagulant long-term use: (3) Hypertension: (4) Encephalopathy: Plan ASSESSMENT/PLAN: 1. Paroxysmal atrial fibrillation: Was in sinus rhythm in August while at EP appointment but A-fib with RVR here. Can continue amiodarone and hopefully she will convert to sinus as her heart rates are quite elevated while in A-fib despite diltiazem 240 mg daily and she has not tolerated beta-stephen. Continue anticoagulation for stroke risk reduction. Monitor CBC and renal function while on Eliquis. Monitor TSH and transaminase levels while on amiodarone. Repeat ECG tomorrow. 2. Encephalopathy: Seen by neurology for concern of stroke, however not felt to have stroke. Being managed for sepsis by primary hospitalist service with elevated procalcitonin level. 3. Hypertension: Blood pressure acceptable. Can continue diltiazem 240 mg p.o. daily. 4. Anticoagulation therapy: Continue Eliquis if no known contraindication. 5. Disposition: Cardiology will continue to follow. Patient care communicated with Dr. Martini earlier today. On discharge, follow-up with Dr. Esparza. Thank you for allowing me to participate in the care of your patient. Please call for any other questions or concerns. Sincerely, Isidro Hays M.D. History of Present Illness Reason for Consultation: A-fib with RVR Requesting Physician: David Martini MD Attending Physician: David Martini MD History of Present Illness Ms. Mcgrath is a very pleasant 84-year-old female with a history significant for paroxysmal atrial fibrillation, hypertension, dyslipidemia, type 2 diabetes, hypothyroidism, recurrent UTI, chronic lymphedema, and left breast cancer s/p surgery. 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 Esparza. She was seen by Dr. Davis on 09/14/2024 and was noted to have paroxysmal atrial fibrillation and when in atrial fibrillation, very fast heart rates into the 180s. She did not tolerate metoprolol and she has been maintained on diltiazem. ECG during that visit demonstrated sinus rhythm with PACs. She has maintained anticoagulation therapy in the form of Eliquis. She was hospitalized here on 11/09/2024 after calling EMS for weakness. She was unable to get out of her recliner. EMS apparently noted a left facial droop with slurred speech, which is documented as new in the H&P. On presentation, she was noted to be in atrial fibrillation with rapid ventricular response in the 130s to 140s. Admitting hospitalist service held Eliquis to evaluate CT for bleed and initiated intravenous amiodarone. They did not want to escalate doses of diltiazem for concerns of lowering blood pressure in the setting of strokelike symptoms. She states that she has occasional palpitations. She monitors her heart rate with a pulse oximeter and blood pressure cuff. Her heart rate is typically in the 80s but she has seen it as high as 205 bpm. She denies chest pain, shortness of breath, syncope, near syncope, melena, hematochezia, or hematuria. She states that she has chronic lower extremity edema for which she wears compression stockings. She states that she has been compliant with Eliquis for at least 4 weeks without interruption. For concerns of stroke, she underwent CT of the head. She apparently cannot tolerate MRI. She has been seen by neurology for which no specific concern for stroke was noted, but rather encephalopathy secondary to sepsis. Review of systems: As above. Family history: Noncontributory. Social history: She quit smoking in 1978. No alcohol or drug abuse. She lives alone. She has 3 children, 2 of which are local and 1 in [place]. She was unaccompanied. Allergies Allergy/AdvReac Type Severity Reaction Status Date / Time No Known Drug Allergies Allergy Unknown Verified 10/28/24 10:11 Home Medications Medication Instructions Recorded Confirmed Type ascorbic acid (vitamin C) 1,000 mg 500 mg PO QAM 07/04/19 11/09/24 History tablet potassium gluconate 595 mg (99 mg) 1,190 mg PO UD 07/04/19 11/09/24 History tablet cholecalciferol (vitamin D3) 25 1,000 units PO QAM 04/17/20 11/09/24 History mcg (1,000 unit) capsule calcium 600 mg (as 1 tab PO QAM 05/14/21 11/09/24 History carbonate)-vitamin D3 5 mcg (200 unit) tablet apixaban 5 mg tablet 5 mg PO BID 05/19/24 11/09/24 History levothyroxine 50 mcg tablet 50 mcg PO QAM #90 tabs 06/30/24 11/09/24 Rx omeprazole 20 mg capsule,delayed 20 mg PO HS #90 caps 06/30/24 11/09/24 Rx release simvastatin 20 mg tablet 20 mg PO HS #90 tabs 06/30/24 11/09/24 Rx alprazolam 0.5 mg tablet (Xanax) 0.5 mg PO DAILY PRN y 07/20/24 11/09/24 History metformin 1,000 mg tablet 1,000 mg PO BID #180 tabs 09/27/24 11/09/24 Rx diltiazem HCl 240 mg 240 mg PO DAILY #90 caps 10/12/24 11/09/24 Rx capsule,extended release 24 hr Colace 100 mg PO DIRECTED 11/09/24 11/09/24 History PreserVision AREDS-2 1 cap PO DIRECTED 11/09/24 11/09/24 History bumetanide 0.5 mg tablet 0.5 mg PO DAILY 11/09/24 11/09/24 History cephalexin 500 mg capsule 500 mg PO DIRECTED 11/09/24 11/09/24 History ergocalciferol (vitamin D2) 1 cap PO DAILY 11/09/24 11/09/24 History glipizide 5 mg tablet, extended 5 mg PO UD 11/09/24 11/09/24 History release 24 hr potassium chloride 89 mg PO UD 11/09/24 11/09/24 History spironolactone 25 mg tablet 25 mg PO UD 11/09/24 11/09/24 History Problem List (Updated 11/09/24 @ 08:53 by Walker Villanueva MD) Encephalopathy Hypocalcemia (Acute) Confusion (Acute) Stroke-like symptoms (Acute) Atrial fibrillation with rapid ventricular response (Acute) Acute dehydration (Acute) Traumatic open wound of left lower leg (Acute) Anticoagulant long-term use Paroxysmal atrial fibrillation Hematoma (Acute) Chronic acquired lymphedema (Chronic) Laceration of right ankle (Acute) 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 Joiner 06/06/21 Depression (Chronic) Diabetes mellitus type 2 with complications (Acute) Diabetic neuropathy (Acute) Hypercholesterolemia (Chronic) Hypertension (Chronic) Hypothyroidism (Chronic) Acid reflux disease (Chronic) Anemia (Chronic) Anxiety (Chronic) Lichen sclerosus et atrophicus Prolapse of female pelvic organs Reaction to influenza immunization Family history of BRCA gene mutation Varicose veins of both legs with edema Abdominal pain Carpal tunnel syndrome on both sides Dysuria Carpal tunnel syndrome Lower extremity edema (Chronic) Ventral hernia Chronic kidney disease, stage 3 Stable- follows with nephro Patient History Medical History COVID-19 Edema To lower extremities - PCP working up (had LE u/s, ECHO) Hearing deficit BL VALLE Bilateral hearing aids Macular degeneration Curvature of spine S/p multiple lumbar surgeries GERD (gastroesophageal reflux disease) Well controlled and stable Hypothyroidism Diabetes mellitus, type 2 NIDDM- glucose fluctuates History of breast cancer Left - lumpectomy + radiation - 2004 Anxiety Hypertension Hyperlipidemia Surgical History S/P total hip arthroplasty 05/23/20 Dr. Brodie Pearson- Left BLANKA with dual mobility cup Status post total hip replacement, right History of hysteroscopy W/ POLYPECTOMY History of cataract surgery right and left History of right knee joint replacement History of lumbar surgery x 3 History of colonoscopy History of breast biopsy H/O tubal ligation H/O tooth extraction H/O dilation and curettage H/O colonoscopy History of cholecystectomy H/O section S/P lumpectomy, left breast S/P appendectomy Family History Mother , age 80 Ovarian cancer Diabetes Brother Prostate cancer Lung cancer Kidney stones Diabetes Cardiac disorder Colorectal cancer, Onset Age: 66 Father Cardiac disorder Myocardial infarction Grandmother (Maternal) Breast cancer Family/Other Breast cancer BRCA 2 positive Cancer Pancreatic cancer Ovarian cancer Daughter No problems noted. 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 Alert. HEENT: Anicteric sclera. Neck: No JVD. No bruits. Normal carotid upstrokes bilaterally. Cardiac: Irregularly irregular. Tachycardic. Normal S1-S2. No murmurs, rubs, or gallops. Pulmonary: Clear to auscultation bilaterally without wheezes, rales, or rhonchi. Abdomen: Soft, nontender, nondistended, with normoactive bowel sounds. No bruits noted. Extremities: 2+ radial pulses bilaterally. 2+ posterior tibialis pulses bilaterally. 1-2+ bilateral lower extremity edema. No cyanosis. Psychiatric: Affect appears appropriate. Results & Data Vital Signs (Past 12 Hours) Vital Signs Temp Pulse Pulse Resp BP BP BP 11/09/24 15:55 36.5 C 101 H 18 138/85 11/09/24 10:27 36.4 C L 83 17 140/84 11/09/24 10:21 36.8 C 103 H 18 112/80 11/09/24 06:30 136 H 20 124/95 11/09/24 06:00 135 H 131/105 H 11/09/24 05:58 131/105 H 11/09/24 05:57 143 H 15 11/09/24 05:44 138/93 11/09/24 05:44 138/93 11/09/24 05:44 138/93 11/09/24 05:42 145 H 23 11/09/24 05:30 159/111 H 11/09/24 05:27 135 H 18 11/09/24 05:03 11/09/24 05:01 134 H 16 144/75 H 11/09/24 04:51 37 C 129 H 18 141/110 H 11/09/24 04:48 138 H Pulse Ox O2 Del Method 11/09/24 15:55 96 Room Air 11/09/24 10:27 99 Room Air 11/09/24 10:21 97 Room Air 11/09/24 06:30 96 Room Air 11/09/24 06:00 11/09/24 05:58 11/09/24 05:57 95 Room Air 11/09/24 05:44 11/09/24 05:44 11/09/24 05:44 11/09/24 05:42 97 Room Air 11/09/24 05:30 11/09/24 05:27 97 Room Air 11/09/24 05:03 96 Room Air 11/09/24 05:01 96 Room Air 11/09/24 04:51 95 Room Air 11/09/24 04:48 Laboratory Results Laboratory Results - last 24 hr 11/09/24 11/09/24 11/09/24 04:49 04:50 04:53 WBC 7.72 RBC 3.97 L Hgb 10.4 L POC Hgb 10.9 L Hct 33.6 L POC Hct 32 L MCV 84.6 MCH 26.2 MCHC 31.0 L RDW Std Deviation 51.8 H RDW Coeff of Gonzalo 16.6 H Plt Count 168 MPV 10.2 Immature Gran % (Auto) 0.3 Neut % (Auto) 89.1 Lymph % (Auto) 4.4 Sanborn % (Auto) 5.3 Eos % (Auto) 0.5 Baso % (Auto) 0.4 Reticulocyte % (Auto) 0.31 L Neut # (Auto) 6.88 H Lymph # (Auto) 0.34 L Sanborn # (Auto) 0.41 Eos # (Auto) 0.04 Baso # (Auto) 0.03 Reticulocyte # 0.010 L Immature Gran # (Auto) 0.02 PT 11.9 INR 1.1 APTT 32 H PTT Ratio 1.2 POC Sodium 138 Sodium 137 POC Potassium 3.3 Potassium 3.3 L POC Chloride 101 Chloride 104 Carbon Dioxide 24 POC Total CO2 22 L Anion Gap 9 POC Anion Gap 19.0 POC BUN 11 BUN 12 Creatinine 0.57 L POC Creatinine 0.6 Est Cr Clr Drug Dosing 84.8 eGFR 90.68 BUN/Creatinine Ratio 21.1 H Glucose 180 H POC Glucose POC Glucose (other) 173 H Estimat Average Glucose 169 Hemoglobin A1c 7.5 H Lactate Calcium 8.1 L POC Ioniz Calcium Carmel 1.09 L Magnesium 1.6 L Iron 68 Transferrin 224 Ferritin 52.6 Total Bilirubin 0.3 AST 8 L ALT 5 L Alkaline Phosphatase 49 Ammonia Troponin I High Sens 10.4 Total Protein 5.2 L Albumin 2.8 L Globulin 2.4 L Albumin/Globulin Ratio 1.2 Vitamin B12 129 L Procalcitonin 4.30 H TSH 2.333 Urine Color Urine Appearance Urine pH Ur Specific Char[place] Urine Protein Urine Glucose (UA) Urine Ketones Urine Blood Urine Nitrite Urine Bilirubin Urine Urobilinogen Ur Leukocyte Esterase Blood Type A Positive Antibody Screen NEGATIVE 11/09/24 11/09/24 11/09/24 05:45 07:10 11:31 WBC RBC Hgb POC Hgb Hct POC Hct MCV MCH MCHC RDW Std Deviation RDW Coeff of Gonzalo Plt Count MPV Immature Gran % (Auto) Neut % (Auto) Lymph % (Auto) Sanborn % (Auto) Eos % (Auto) Baso % (Auto) Reticulocyte % (Auto) Neut # (Auto) Lymph # (Auto) Sanborn # (Auto) Eos # (Auto) Baso # (Auto) Reticulocyte # Immature Gran # (Auto) PT INR APTT PTT Ratio POC Sodium Sodium POC Potassium Potassium POC Chloride Chloride Carbon Dioxide POC Total CO2 Anion Gap POC Anion Gap POC BUN BUN Creatinine POC Creatinine Est Cr Clr Drug Dosing eGFR BUN/Creatinine Ratio Glucose POC Glucose 165 H POC Glucose (other) Estimat Average Glucose Hemoglobin A1c Lactate 2.0 Calcium POC Ioniz Calcium Carmel Magnesium Iron Transferrin Ferritin Total Bilirubin AST ALT Alkaline Phosphatase Ammonia 17.0 L Troponin I High Sens Total Protein Albumin Globulin Albumin/Globulin Ratio Vitamin B12 Procalcitonin TSH Urine Color Yellow Urine Appearance Clear Urine pH 5.5 Ur Specific Char[place] > 1.045 H Urine Protein Negative Urine Glucose (UA) Negative Urine Ketones 2+ H Urine Blood Negative Urine Nitrite Negative Urine Bilirubin Negative Urine Urobilinogen Negative Ur Leukocyte Esterase Negative Blood Type Antibody Screen Diagnostic Findings ECHO 11/09/24: 1. Normal left ventricular size with low normal systolic function. EF 50-55%. No regional wall motion abnormalities visualized. Moderate concentric left jeremias tricular hypertrophy. 2. No significant valvular abnormalities visualized. 3. Normal estimated right ventricular systolic pressure. 4. Technically difficult study, enhanced with IV Definity. 5. Atrial fibrillation with rapid ventricular response. Labs reviewed and notable for normal renal function, mild hypokalemia, elevated A1c, mild hypomagnesemia, nonelevated transaminase levels, new anemia, normal high-sensitivity troponin ECG personally reviewed 11/09/2024: A-fib RVR 133 bpm. LVH. Poor R wave progression. Lateral ST/T wave abnormality. History and physical report reviewed. CT abdomen/pelvis 11/09/2024: No acute intra-abdominal or intrapelvic abnormality per radiology. Chest x-ray 11/09/2024: No interval change regarding bilateral accentuated lung markings with peribronchial cuffing per radiology. Head CTA 11/09/2024: Bilateral mild atheromatous calcifications of the cavernous portions of both ICAs, without significant stenosis per radiology. Head CT 11/09/2024: No acute intracranial hemorrhage or established territorial infarct. Chronic microvascular ischemic changes. Lower extremity venous reflux evaluation 08/24/2024: No reflux within the bilateral GSV or SSV. No DVT. Medications Administered Current Inpatient Medications Acetaminophen (Acetaminophen 325 Mg Tab) 650 mg PO QID PRN PRN Reason: pain/fever Stop: 12/09/24 07:22 Alprazolam (Alprazolam 0.25 Mg Tablet) 0.25 mg PO BID PRN PRN Reason: Anxiety Stop: 12/09/24 07:22 Dextrose (Dextrose 50% 50 Ml Syringe) 25 - 50 ml IV UD PRN; Protocol PRN Reason: Hypoglycemia Protocol Stop: 12/09/24 10:20 Diltiazem HCl (Diltiazem Hcl 240 Mg Capcr) 240 mg PO DAILY YESSENIA Stop: 12/09/24 10:29 Last Admin: 11/09/24 11:20 Dose: 240 mg Glucagon (Glucagon For Inj 1 Mg Vial) 1 mg SQ UD PRN; Protocol PRN Reason: Hypoglycemia Protocol Stop: 12/09/24 10:20 Glucose (Glucose 40% Gel 15 Gm Tube) 15 - 30 gm PO UD PRN; Protocol PRN Reason: Hypoglycemia Protocol Stop: 12/09/24 10:20 Glucose (Glucose 10 Tab/Tube) 4 - 8 tab PO UD PRN; Protocol PRN Reason: Hypoglycemia Protocol Stop: 12/09/24 10:20 Amiodarone HCl/Dextrose (Nexterone / D5w) 360 mg in 200 mls @ 16.667 mls/hr IV .Q12H [facility] Stop: 12/09/24 13:29 Last Admin: 11/09/24 13:45 Dose: 0.5 mg/min, 16.7 mls/hr Cefepime HCl (Maxipime 2000mg) 2,000 mg in 20 mls @ 5 mls/min IV Q8H [facility]; Protocol Stop: 11/11/24 16:59 Vancomycin HCl (Vancomycin Hcl) 1,000 mg in 270 mls @ 200 mls/hr IV Q12H [facility] Stop: 11/11/24 19:59 Insulin Aspart (Insulin Aspart Per Unit Charge) 0 units SC Q6 [facility] Stop: 12/09/24 10:29 Last Admin: 11/09/24 13:30 Dose: Not Given Insulin Glargine (Lantus Per Unit Charge) 5 units SQ DAILY [facility] Stop: 12/09/24 10:29 Last Admin: 11/09/24 12:06 Dose: 5 units Levothyroxine Sodium (Levothyroxine Sodium 50 Mcg Tablet) 50 mcg PO DAILYBB [facility] Stop: 12/09/24 10:44 Last Admin: 11/09/24 11:20 Dose: 50 mcg Miscellaneous (Carbohydrates For Hypoglycemia ) 15 - 30 gm PO UD PRN PRN Reason: Hypoglycemia Protocol Stop: 12/09/24 10:20 Miscellaneous Information (Pharmacist Discharge Med Rec Consult) 1 each N/A UD PRN PRN Reason: Consult Stop: 12/09/24 07:19 Miscellaneous Information (Vancomycin Consult Active) 1 each N/A UD PRN PRN Reason: Consult Stop: 12/09/24 08:56 Multivitamins (Multivitamin Tab) 1 tab PO QAM [facility] Stop: 12/09/24 08:59 Last Admin: 11/09/24 11:20 Dose: 1 tab Pantoprazole Sodium (Pantoprazole 40 Mg Tab) 40 mg PO HS [facility] Stop: 12/09/24 20:59 Simvastatin (Simvastatin 20 Mg Tab) 20 mg PO HS [facility] Stop: 12/09/24 20:59 Tramadol HCl (Tramadol Hcl 50 Mg Tablet) 25 mg PO Q4H PRN PRN Reason: Pain Stop: 12/09/24 07:22 PG Care Time/CCT Total # of Minutes Spent Total Time Spent with Patient: Total time spent is greater than 50% in coordination of care (as documented) at patient's floor/unit and/or counseling patient: Coding Level of Care Code 15107 INT INP/OBS CARE 3/75MIN Diagnoses Paroxysmal atrial fibrillation I48.0 Anticoagulant long-term use Z79.01 Hypertension I10 Encephalopathy G93.40
--- NOTE | 2024-11-09 16:06 | XCELERA ---
[id number]
[2024-11-09] MEDS: ACETAMINOPHEN 325 MG TAB PO PRN (16:32)
[2024-11-09] MEDS: CEFEPIME 2000MG 2,000 MG/20 ML SYR IV SCH (16:33)
--- NOTE | 2024-11-09 16:39 | Neurology Consultation ---
Date of Consultation November 09, 2024 Assessment & Plan (1) Encephalopathy: Gabriela Mcgrath presents with mild encephalopathy secondary to sepsis. No specific concern for stroke and her risk factors are appropriately managed with anticoagulation. Please contact us with any further questions. Telehealth Consultation Telehealth Information Telehealth Information: I performed this visit using a real-time telehealth connection between my location and the patients location ([facility]). After connecting through interactive tele-video, patient was identified by name and date of and/or wristband check.Patient (or authorized healthcare technology sales representative) was informed that this was a telemedicine visit and it was being conducted confidentially over secure lines. My office door was closed and no one else was present in the room with me.Patient (or authorized healthcare technology sales representative) provided consent to proceed with the visit, expressed an understanding of privacy and security of the telemedicine visit, and gave permission to have a hospital technology sales representative in the room in order to assist with the visit and to conduct portions of the visit, as needed. I informed the patient (or authorized healthcare technology sales representative) that I reviewed their record and presented the opportunity for them to ask any questions regarding the visit today. The patient agreed to participate. History of Present Illness Reason for Consultation: Encephalopathy Requesting Physician: Dr. Martini Attending Physician: David Martini MD History of Present Illness Gabriela Mcgrath is an 84 yo F presenting with mild confusion from home in the setting of sepsis from a UTI which she was recently hospitalized for at [facility]. She reports being unable to get out of her chair at home as the mechanism broke and she is normally unable to stand up without the help of the chair. She feels tired but otherwise denies any new weakness or numbness, no change in speech. No hx of stroke. She is also still taking her eliquis. Allergies Allergy/AdvReac Type Severity Reaction Status Date / Time No Known Drug Allergies Allergy Unknown Verified 10/28/24 10:11 Home Medications Medication Instructions Recorded Confirmed Type ascorbic acid (vitamin C) 1,000 mg 500 mg PO QAM 07/04/19 11/09/24 History tablet potassium gluconate 595 mg (99 mg) 1,190 mg PO UD 07/04/19 11/09/24 History tablet cholecalciferol (vitamin D3) 25 1,000 units PO QAM 04/17/20 11/09/24 History mcg (1,000 unit) capsule calcium 600 mg (as 1 tab PO QAM 05/14/21 11/09/24 History carbonate)-vitamin D3 5 mcg (200 unit) tablet apixaban 5 mg tablet 5 mg PO BID 05/19/24 11/09/24 History levothyroxine 50 mcg tablet 50 mcg PO QAM #90 tabs 06/30/24 11/09/24 Rx omeprazole 20 mg capsule,delayed 20 mg PO HS #90 caps 06/30/24 11/09/24 Rx release simvastatin 20 mg tablet 20 mg PO HS #90 tabs 06/30/24 11/09/24 Rx alprazolam 0.5 mg tablet (Xanax) 0.5 mg PO DAILY PRN y 07/20/24 11/09/24 History metformin 1,000 mg tablet 1,000 mg PO BID #180 tabs 09/27/24 11/09/24 Rx diltiazem HCl 240 mg 240 mg PO DAILY #90 caps 10/12/24 11/09/24 Rx capsule,extended release 24 hr Colace 100 mg PO DIRECTED 11/09/24 11/09/24 History PreserVision AREDS-2 1 cap PO DIRECTED 11/09/24 11/09/24 History bumetanide 0.5 mg tablet 0.5 mg PO DAILY 11/09/24 11/09/24 History cephalexin 500 mg capsule 500 mg PO DIRECTED 11/09/24 11/09/24 History ergocalciferol (vitamin D2) 1 cap PO DAILY 11/09/24 11/09/24 History glipizide 5 mg tablet, extended 5 mg PO UD 11/09/24 11/09/24 History release 24 hr potassium chloride 89 mg PO UD 11/09/24 11/09/24 History spironolactone 25 mg tablet 25 mg PO UD 11/09/24 11/09/24 History Patient History Medical History COVID-19 Edema To lower extremities - PCP working up (had LE u/s, ECHO) Hearing deficit BL VALLE Bilateral hearing aids Macular degeneration Curvature of spine S/p multiple lumbar surgeries GERD (gastroesophageal reflux disease) Well controlled and stable Hypothyroidism Diabetes mellitus, type 2 NIDDM- glucose fluctuates History of breast cancer Left - lumpectomy + radiation - 2004 Anxiety Hypertension Hyperlipidemia Surgical History S/P total hip arthroplasty 05/23/20 Dr. Brodie Pearson- Left BLANKA with dual mobility cup Status post total hip replacement, right History of hysteroscopy W/ POLYPECTOMY History of cataract surgery right and left History of right knee joint replacement History of lumbar surgery x 3 History of colonoscopy History of breast biopsy H/O tubal ligation H/O tooth extraction H/O dilation and curettage H/O colonoscopy History of cholecystectomy H/O section S/P lumpectomy, left breast S/P appendectomy Family History Mother , age 80 Ovarian cancer Diabetes Brother Prostate cancer Lung cancer Kidney stones Diabetes Cardiac disorder Colorectal cancer, Onset Age: 66 Father Cardiac disorder Myocardial infarction Grandmother (Maternal) Breast cancer Family/Other Breast cancer BRCA 2 positive Cancer Pancreatic cancer Ovarian cancer Daughter No problems noted. 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 Oriented to person, place, and time. Fluent. Comprehension intact. Affect appropriate. Cranial Nerves: II: Reads NIHSS cards, pupils 3/3 to 2/2, mayfield grossly intact. III/IV/: Versions intact without nystagmus, no gaze preference. V: Facial sensation symmetric to light touch VII: Facial expression symmetric VIII: Hearing intact to voice IX/X: Palate elevates symmetrically XI: Shoulder shrug symmetric XII: Tongue midline Motor: Strength was symmetric and antigravity throughout, except in L arm she refused to move due to chronic shoulder pain. There were no abnormal movements. Sensory: Sensation to light touch was intact. Coordination: Finger to nose and heel to chiang were intact. Reflexes: Unable to assess over telemedicine Results & Data Vital Signs (Past 12 Hours) Vital Signs Temp Pulse Pulse Resp BP BP BP 11/09/24 15:55 36.5 C 101 H 18 138/85 11/09/24 10:27 36.4 C L 83 17 140/84 11/09/24 10:21 36.8 C 103 H 18 112/80 11/09/24 06:30 136 H 20 124/95 11/09/24 06:00 135 H 131/105 H 11/09/24 05:58 131/105 H 11/09/24 05:57 143 H 15 11/09/24 05:44 138/93 11/09/24 05:44 138/93 11/09/24 05:44 138/93 11/09/24 05:42 145 H 23 11/09/24 05:30 159/111 H 11/09/24 05:27 135 H 18 11/09/24 05:03 11/09/24 05:01 134 H 16 144/75 H 11/09/24 04:51 37 C 129 H 18 141/110 H 11/09/24 04:48 138 H Pulse Ox O2 Del Method 11/09/24 15:55 96 Room Air 11/09/24 10:27 99 Room Air 11/09/24 10:21 97 Room Air 11/09/24 06:30 96 Room Air 11/09/24 06:00 11/09/24 05:58 11/09/24 05:57 95 Room Air 11/09/24 05:44 11/09/24 05:44 11/09/24 05:44 11/09/24 05:42 97 Room Air 12/18/24 05:30 11/09/24 05:27 97 Room Air 11/09/24 05:03 96 Room Air 11/09/24 05:01 96 Room Air 11/09/24 04:51 95 Room Air 11/09/24 04:48 Laboratory Results Abnormal lab results 11/09/24 11/09/24 11/09/24 Range/Units 04:49 04:53 05:45 RBC 3.97 L (4.20-5.40) M/uL Hgb 10.4 L (12.0-16.0) g/dl POC Hgb 10.9 L (12.0-16.0) g/dl Hct 33.6 L (37.0-47.0) % POC Hct 32 L (37-47) % MCHC 31.0 L (32.0-36.0) g/dL RDW Std Deviation 51.8 H (36.4-46.3) fL RDW Coeff of Gonzalo 16.6 H (11.5-14.5) % Reticulocyte % (Auto) 0.31 L (0.50-2.00) % Neut # (Auto) 6.88 H (1.40-6.50) K/uL Lymph # (Auto) 0.34 L (1.20-3.40) K/uL Reticulocyte # 0.010 L (0.020-0.100) 10^6/uL APTT 32 H (21-31) Seconds Potassium 3.3 L (3.5-5.1) mmol/L POC Total CO2 22 L (24-31) mmol/L Creatinine 0.57 L (0.6-1.2) mg/dl BUN/Creatinine Ratio 21.1 H (10-20) Glucose 180 H (70-99(Fasting)) mg/dl POC Glucose (70-99) mg/dl POC Glucose (other) 173 H (70-99) mg/dl Hemoglobin A1c 7.5 H (4.5-5.6) % Calcium 8.1 L (8.6-10.3) mg/dl POC Ioniz Calcium [place] 1.09 L (1.12-1.32) mmol/l Magnesium 1.6 L (1.7-2.4) mg/dl AST 8 L (13-39) U/L ALT 5 L (7-52) U/L Ammonia (18-72) umol/L Total Protein 5.2 L (6.0-8.3) gm/dl Albumin 2.8 L (3.4-5.0) gm/dl Globulin 2.4 L (2.5-4.0) gm/dl Vitamin B12 129 L (180-914) pg/ml Procalcitonin 4.30 H (0-0.5) ng/ml Ur Specific [place] > 1.045 H (1.000-1.030) Urine Ketones 2+ H (Negative) 11/09/24 11/09/24 11/09/24 Range/Units 07:10 11:31 16:06 RBC (4.20-5.40) M/uL Hgb (12.0-16.0) g/dl POC Hgb (12.0-16.0) g/dl Hct (37.0-47.0) % POC Hct (37-47) % MCHC (32.0-36.0) g/dL RDW Std Deviation (36.4-46.3) fL RDW Coeff of Gonzalo (11.5-14.5) % Reticulocyte % (Auto) (0.50-2.00) % Neut # (Auto) (1.40-6.50) K/uL Lymph # (Auto) (1.20-3.40) K/uL Reticulocyte # (0.020-0.100) 10^6/uL APTT (21-31) Seconds Potassium (3.5-5.1) mmol/L POC Total CO2 (24-31) mmol/L Creatinine (0.6-1.2) mg/dl BUN/Creatinine Ratio (10-20) Glucose (70-99(Fasting)) mg/dl POC Glucose 165 H 119 H (70-99) mg/dl POC Glucose (other) (70-99) mg/dl Hemoglobin A1c (4.5-5.6) % Calcium (8.6-10.3) mg/dl POC Ioniz Calcium [place] (1.12-1.32) mmol/l Magnesium (1.7-2.4) mg/dl AST (13-39) U/L ALT (7-52) U/L Ammonia 17.0 L (18-72) umol/L Total Protein (6.0-8.3) gm/dl Albumin (3.4-5.0) gm/dl Globulin (2.5-4.0) gm/dl Vitamin B12 (180-914) pg/ml Procalcitonin (0-0.5) ng/ml Ur Specific [place] (1.000-1.030) Urine Ketones (Negative) Diagnostic Findings Head CT 11/09/24 04:20 EXAM: CT head/brain wo con CLINICAL HISTORY: NEURO SYMPTOMS, STROKE ALERT. TECHNIQUE: Axial non-contrast CT scan of the brain was performed from the skull base to the high parietal region. One of the following dose reduction techniques were utilized for this exam: Automated exposure control, adjustment of the mA and/or kV according to patient size, use of iterative reconstruction. COMPARISON: prior 07/13/2024 FINDINGS: Brain Parenchyma: There are multiple tiny ill-defined hypodense foci and small areas noted in the subcortical and periventricular white matter bilaterally associated with bilateral periventricular patchy symmetrical hypodense areas capping both ventricles, suggestive of microvascular ischemic changes. Normal attenuation of the cerebellum, and brainstem. No evidence of acute infarct, hemorrhage, or mass effect. No abnormal areas of hyperattenuation. Ventricular System and Subarachnoid Spaces: The ventricular system, cortical sulci, cerebellar folia, and basal cisterns are prominent and consistent with senile changes. No evidence of hydrocephalus. No evidence of subarachnoid hemorrhage or extra-axial fluid collections. Cerebellum and Brainstem: Normal size and signal. No masses, lesions, or areas of abnormal signal. Orbits: Normal appearance of the globes, optic nerves, and extraocular muscles. No evidence of orbital masses or abnormal density. Sinuses: Left sphenoid sinusitis. Mastoid Air Cells: Clear mastoid air cells. No evidence of mastoiditis. Skull and Meninges: Normal skull morphology. No evidence of meningeal thickening. IMPRESSION: 1. No acute intracranial hemorrhage or established territorial infarct. 2. Chronic microvascular ischemic changes. 3. Age-related brain involutional changes. 4. No significant interval changes. 5. Early changes of a stroke may not be detected on a CT scan. If there is strong clinical suspicion of stroke, further MRI with diffusion-weighted imaging is recommended. [facility]'s ER was called at [phone] at 4:14 AM ADOBE ARCHITECT, 11/09/2024, and Dr. Mccormack was informed regarding the negative stroke results. Electronically signed by Alondra Hendrix 11-09-2024 05:19 AM Head CTA 11/09/24 04:20 EXAM: CT angio head w con CLINICAL HISTORY: NEURO SYMPTOMS, STROKE ALERT. TECHNIQUE: CT angiography of the head was performed following the intravenous administration of iodinated contrast material. Contiguous axial images were obtained from the base of the skull to the vertex. Coronal and sagittal reformatted images were also reviewed. One of these 3D techniques was utilized: Maximum Intensity Pixel (MIP), 3D Reconstructed Images, Volume Rendered Images, Surface Shaded Rendering. One of the following dose reduction techniques was utilized for this exam. Automated exposure control, adjustment of the mA and/or kV according to patient size, and use of iterative reconstruction. COMPARISON: None. FINDINGS: Intracranial Arteries: Bilateral mild atheromatous calcifications of the cavernous portions of both ICAs, with no significant stenosis. The intracranial arteries, including the anterior cerebral arteries, middle cerebral arteries, posterior cerebral arteries, basilar artery, and vertebral arteries, are all patent without evidence of significant stenosis, aneurysm, or dissection. There is no evidence of vascular malformations. Marshall of [place] Paz: The Marshall of [place] is intact with no anatomical variations or abnormalities noted. All segments are well-visualized and normal in appearance. Venous System: The visualized portions of the venous system, including the dural venous sinuses, are patent with no evidence of thrombosis. Brain Parenchyma: Chronic microvascular ischemic changes. Age-related brain involutional changes. Bones: The bony structures of the skull are intact without evidence of fracture or destructive lesions. Soft Tissues: The visualized soft tissues of the head are unremarkable. Additional Findings: No other significant findings are noted. IMPRESSION: 1. Bilateral mild atheromatous calcifications of the cavernous portions of both ICAs, with no significant stenosis. 2. Otherwise, unremarkable CTA brain study. Electronically signed by Alondra Hendrix 11-09-2024 05:21 AM Neck CTA 11/09/24 04:20 EXAM: CT angio neck with con CLINICAL HISTORY: NEURO SYMPTOMS, STROKE ALERT, 118 ML OPTIRAY 320 TECHNIQUE: Contrast enhanced thin slice CT angiography scan of the carotid vessels was performed with intravenous contrast. Angiographic images were processed, 3D MIP images were acquired for interpretation. Contiguous axial images were obtained. Reformatted coronal and sagittal images were also reviewed. If IV contrast material had not been administered, the likelihood of detecting abnormalities relevant to the patient's condition would have been substantially decreased. CT scan was performed according to ALARA (as low as reasonable achievable). COMPARISON: None. FINDINGS: Bovine configuration of the aortic arch is noted. Few eccentric atherocalcific plaques are seen at bilateral carotid bifurcation without significant stenosis. Eccentric mixed plaques are noted in the cavernous portion of left internal carotid artery causing mild luminal narrowing. Eccentric plaques are noted in the cavernous portion of right internal carotid artery without significant luminal narrowing. Right internal carotid artery demonstrates retropharyngeal course. Left sphenoid sinus shows opacification with internal hyperdense contents and thickened santos, suggesting chronic sinusitis. Degenerative changes are noted in the visualized spine. IMPRESSION: 1. 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 2. Bovine arch variant. 3. 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 Electronically signed by Trell Ahuja 11-09-2024 05:58 AM Chest X-Ray 11/09/24 04:25 EXAM: XR chest 1V portable CLINICAL HISTORY: STROKE ALERT. TECHNIQUE: An X-ray image of the chest is obtained in AP projection. COMPARISON: X-ray dated 07/13/2024. FINDINGS: Pulmonary Parenchyma: Bilateral accentuated lung markings with peribronchial cuffing and bilateral prominent hilar shadows. Further evaluation is recommended No evidence of consolidation, collapse, or focal opacities. No pulmonary nodules are identified. No evidence of pleural effusion or pleural thickening. Heart and Mediastinum: Heart size and shape are normal. No mediastinal widening or masses. No hilar or mediastinal lymphadenopathy. 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 Decrease bone density. The bony thorax appears intact without fractures or deformities. Soft Tissues: Soft tissues overlying the chest wall are unremarkable. IMPRESSION: 1. No interval changes regarding the bilateral accentuated lung markings with peribronchial cuffing. 2. Progression in size of the bilateral prominent hilar shadows. Further evaluation is recommended. Electronically signed by Alondra Hendrix 11-09-2024 05:45 AM Abdomen/Pelvis CT 11/09/24 06:[address] WITHOUT CONTRAST CT DOSE: 1434.36 mGy.cm HISTORY: Acute generalized abdominal and low back pain with urinary tract infection back pain TECHNIQUE: Multiaxial CT images of the abdomen and pelvis were performed without contrast. A dose lowering technique was utilized adhering to the principles of ALARA. COMPARISON STUDY: 05/21/2021 FINDINGS: Extensive coronary artery calcifications. The heart is normal in size. Mild bibasilar atelectasis versus scarring. Study is limited secondary to upper extremity positioning, streak artifact from spinal hardware and lack of contrast. No pneumatosis or pneumoperitoneum. Unremarkable spleen, moderately trophic pancreas and adrenal glands. Cholecystectomy. Unremarkable liver. Contrast within the collecting systems and ureters from the same day CTA neck limits evaluation for renal or ureteral calculi. No upper urothelial lesion identified. Cortical thinning of the kidneys without hydronephrosis. Decompressed bladder with Villanueva catheter in place. Unremarkable uterus. Atherosclerosis of the aorta. No lymphadenopathy or retroperitoneal hematoma. No bowel obstruction or bowel wall thickening. Mild rectal wall thickening with partial distention. Mild colonic diverticulosis. The appendix is not visualized. Left hip arthroplasty. Posterior interbody lopez and screw fusion at L3-L5. The right L4 screw extends into the L3-L4 disc space. Small subcutaneous contusion lateral to the right hip. IMPRESSION: 1. No acute intra-abdominal or intrapelvic abnormality identified. 2. Small subcutaneous contusion lateral to the right hip. No acute fracture identified. 3. Additional findings as above. ACT 112: Negative or not required by law. The above report was generated using voice recognition software. It may contain grammatical, syntax or spelling errors. Electronically signed by: Anton Arriaga M.D. 11/09/2024 9:23 AM
[2024-11-09] MEDS: SIMVASTATIN 20 MG TAB PO SCH (20:17)
[2024-11-09] MEDS: APIXABAN 5 MG TABLET PO SCH (20:17)
[2024-11-09] MEDS: PANTOprazole 40 MG TAB PO SCH (20:17)
[2024-11-09] MEDS: ALPRAZolam 0.25 MG TABLET PO PRN (20:18)
[2024-11-09] MEDS: VANCOMYCIN HCL 1,000 MG/270 ML BAG IV SCH (22:50)
--- NOTE | 2024-11-10 06:22 | Electrocardiogram Report ---
Test Reason : Blood Pressure : */* mmHG Vent. Rate : 133 BPM Atrial Rate : * BPM P-R Int : * ms QRS Dur : 106 ms QT Int : 318 ms P-R-T Axes : * -38 134 degrees QTcB Int : 473 ms Atrial fibrillation with rapid ventricular response with premature ventricular or aberrantly conducte d complexes Left axis deviation Minimal voltage criteria for LVH, may be normal variant ( [place] product ) Anterior infarct (cited on or before 14-Sep-2024) Abnormal ECG When compared with ECG of 14-Sep-2024 11:54, Atrial fibrillation has replaced Sinus rhythm Confirmed by Guy Hays ([id number]) on 11/10/2024 6:22:17 AM Referred By: REFERRED SELF Confirmed By: Guy Hays
[2024-11-10 07:23] LABS: Basophils # (auto) 0.03 K/uL (0.00-0.20); Basophils % (auto) 0.5 %; Eosinophils # (auto) 0.08 K/uL (0.00-0.50); Eosinophils % (auto) 1.3 %; Hematocrit (blood only) 34.7 % (37.0-47.0); Hemoglobin 11.1 g/dl (12.0-16.0); Immature Granulocytes # (auto) 0.04 K/uL (0.01-0.20); Immature Granulocytes % (auto) 0.6 %; Lymphocytes # (auto) 0.83 K/uL (1.20-3.40); Lymphocytes % (auto) 13.4 %; Mean Corpuscular Hemoglobin 26.4 pg (25.0-34.0); Mean Corpuscular Volume 82.6 fL (80.0-100.0); Mean Platelet Volume 10.9 fL (9.4-12.4); Monocytes # (auto) 0.66 K/uL (0.11-0.59); Monocytes % (auto) 10.7 %; Neutrophils # (auto) 4.54 K/uL (1.40-6.50); Neutrophils % (auto) 73.5 %; Platelet Count 191 K/uL (130-400); RDW Coefficient of Variation 16.5 % (11.5-14.5); RDW Standard Deviation 50.1 fL (36.4-46.3); White Blood Count 6.18 K/ul (4.8-10.8)
[2024-11-10 07:41] LABS: Calcium 8.5 mg/dl (8.6-10.3); Potassium 3.5 mmol/L (3.5-5.1)
[2024-11-10 07:47] LABS: BUN Creatinine Ratio 14.5 (10-20); Chol HDL Ratio 2.9 (0-5); Creatinine Clr Calc Pharmacy 86.6 ml/min
--- NOTE | 2024-11-10 08:09 | Hospitalist Progress Note ---
Date of Service November 10, 2024 Assessment & Plan (1) Encephalopathy: Plan: Encephalopathy - resolved Multifactorial: Acute CVA vs TIA given new left-sided facial droop, history A-fib on Eliquis Sepsis, elevated procalcitonin, unknown source for now rule out lumbar spine source given back pain complaints, history surgery Rapid A-fib secondary to illness PCU given rapid A-fib IV amiodarone in addition to patient's oral Cardizem for rate control for now to prevent abrupt BP swings given acute CVA concern Cardiology consulted - pt follows w/ [facility] Neurochecks CT head after 24 hours re: left-sided facial droop (Patient cannot tolerate MRI due to severe claustrophobia as per patient/family.) TTE for additional stroke workup Neurology consult Re: Left-sided facial droop Per neurology - No specific concern for stroke and her risk factors are appropriately managed with anticoagulation. UA negative CS, Vancomycin and cefepime CT abdomen pelvis re: back pain, Eliquis Rx, sepsis Ct abd/pelvis 1. No acute intra-abdominal or intrapelvic abnormality identified. 2. Small subcutaneous contusion lateral to the right hip. No acute fracture identified. Reports dysuria and hematuria on 11/02 - reviewed outpt records - grew E.coli resistant to Bactrim -> pt then ended up at [facility]. Obtained records from there - urine cultx w/mixed arnulfo. WBC 17K on admission there. Here UA negat. Procal elevated at ~4 . Will discuss further w/ ID New onset anemia, no obvious source of bleed for now, FOBT done at the ER was negative. Anemia workup, transfuse PRBC if hemoglobin less than 8 and or for symptomatic anemia B12 low - start supplement Chronic conditions chronic diastolic heart failure (EF 50%, TTE 2023), patient on the dry side on admission, monitor volume status valvular heart disease (mild AR TR, TTE 2023) hx PVD hypertension, BP currently stable hyperlipidemia, on statin Rx left breast cancer status post surgery/BRCA gene mutation as per records DM2 on oral medications, suboptimal control as of recent hemoglobin A1c of 30 June 2024 ISS BG goal 110-140, current hemoglobin A1c 7.5% Hypothyroidism, euthyroid as of current TSH Hx of past tobacco abuse DVT prophylaxis. Eliquis Full code Patient son - Mr. Anthony Mcgrath, contact #[phone]. Admission and Anticipated Discharge Date Admission Date: November 09, 2024 Subjective Pt seen in follow up of Afib RVR (currently on IV amiodarone), admitted w/ stroke -like symptoms, also concern for sepsis, recently treated at [facility] for UTI This AM - seeing double - the box of westonx but she does not see anything else double. Ct head this AM negative. No fever, chills, chest pain, shortness of breath She is still on amio IV - HR still elevated, seen by cardiology yesterday. Reports dysuria and hematuria on 11/02 - reviewed outpt records - grew E.coli resistant to Bactrim -> pt then ended up at [facility]. Obtained records from there - urine cultx w/mixed arnulfo. WBC 17K on admission there. Here UA negat. Will discuss further w/ ID Review of Systems Review of Systems: All systems reviewed & are unremarkable except as noted in Subjective Physical Exam Physical Exam: GENERAL: obese F in NAD HEENT: NC/AT, EOMI NECK : Supple, short neck, no tenderness CHEST : Decreased breath sounds, no tenderness HEART : Irregular, tachycardic, no obvious murmurs ABDOMEN: Some distention, nontender EXTREMITIES : Bilateral mild LE swelling without tenderness (chronic as per patient), moves extremities NEUROLOGIC : awake, alert, able to answer simple questions appropriately. no facial asymmetry, moves extremities SKIN: Pallor , warm Results & Data Results & Data Vital Signs (Past 12 Hours) Vital Signs Temp Pulse Resp BP BP Pulse Ox O2 Del Method 11/10/24 03:11 36.5 C 95 H 18 108/70 97 Room Air 11/09/24 22:31 36.9 C 93 H 18 119/77 97 Room Air Laboratory Results 11/10/24 11/10/24 11/09/24 Range/Units 07:26 07:01 20:24 WBC 6.18 (4.8-10.8) K/ul RBC 4.20 (4.20-5.40) M/uL Hgb 11.1 L (12.0-16.0) g/dl Hct 34.7 L (37.0-47.0) % MCV 82.6 (80.0-100.0) fL MCH 26.4 (25.0-34.0) pg MCHC 32.0 (32.0-36.0) g/dL RDW Std Deviation 50.1 H (36.4-46.3) fL RDW Coeff of Gonzalo 16.5 H (11.5-14.5) % Plt Count 191 (130-400) K/uL MPV 10.9 (9.4-12.4) fL Immature Gran % (Auto) 0.6 % Neut % (Auto) 73.5 % Lymph % (Auto) 13.4 % [place] % (Auto) 10.7 % Eos % (Auto) 1.3 % Baso % (Auto) 0.5 % Neut # (Auto) 4.54 (1.40-6.50) K/uL Lymph # (Auto) 0.83 L (1.20-3.40) K/uL [place] # (Auto) 0.66 H (0.11-0.59) K/uL Eos # (Auto) 0.08 (0.00-0.50) K/uL Baso # (Auto) 0.03 (0.00-0.20) K/uL Immature Gran # (Auto) 0.04 (0.01-0.20) K/uL Sodium 139 (136-145) mmol/L Potassium 3.5 (3.5-5.1) mmol/L Chloride 107 (98-107) mmol/L Carbon Dioxide 23 (21-32) mmol/L Anion Gap 9 (3-11) BUN 8 (6-23) mg/dl Creatinine 0.55 L (0.6-1.2) mg/dl Est Cr Clr Drug Dosing 86.6 ml/min eGFR 91.46 BUN/Creatinine Ratio 14.5 (10-20) Glucose 152 H (70-99(Fasting)) mg/dl POC Glucose 184 H 132 H (70-99) mg/dl Calcium 8.5 L (8.6-10.3) mg/dl Triglycerides 143 (0-150) mg/dl Cholesterol 117 (0-200) mg/dl LDL Cholesterol, Calc 47 mg/dl VLDL Cholesterol, Calc 29 (0-30) mg/dl HDL Cholesterol 41 mg/dl Cholesterol/HDL Ratio 2.9 (0-5) 11/09/24 11/09/24 Range/Units 16:06 11:31 WBC (4.8-10.8) K/ul RBC (4.20-5.40) M/uL Hgb (12.0-16.0) g/dl Hct (37.0-47.0) % MCV (80.0-100.0) fL MCH (25.0-34.0) pg MCHC (32.0-36.0) g/dL RDW Std Deviation (36.4-46.3) fL RDW Coeff of Gonzalo (11.5-14.5) % Plt Count (130-400) K/uL MPV (9.4-12.4) fL Immature Gran % (Auto) % Neut % (Auto) % Lymph % (Auto) % [place] % (Auto) % Eos % (Auto) % Baso % (Auto) % Neut # (Auto) (1.40-6.50) K/uL Lymph # (Auto) (1.20-3.40) K/uL [place] # (Auto) (0.11-0.59) K/uL Eos # (Auto) (0.00-0.50) K/uL Baso # (Auto) (0.00-0.20) K/uL Immature Gran # (Auto) (0.01-0.20) K/uL Sodium (136-145) mmol/L Potassium (3.5-5.1) mmol/L Chloride (98-107) mmol/L Carbon Dioxide (21-32) mmol/L Anion Gap (3-11) BUN (6-23) mg/dl Creatinine (0.6-1.2) mg/dl Est Cr Clr Drug Dosing ml/min eGFR BUN/Creatinine Ratio (10-20) Glucose (70-99(Fasting)) mg/dl POC Glucose 119 H 165 H (70-99) mg/dl Calcium (8.6-10.3) mg/dl Triglycerides (0-150) mg/dl Cholesterol (0-200) mg/dl LDL Cholesterol, Calc mg/dl VLDL Cholesterol, Calc (0-30) mg/dl HDL Cholesterol mg/dl Cholesterol/HDL Ratio (0-5) Medications Administered Current Inpatient Medications Acetaminophen (Acetaminophen 325 Mg Tab) 650 mg PO QID PRN PRN Reason: pain/fever Stop: 12/09/24 07:22 Last Admin: 11/09/24 16:32 Dose: 650 mg Alprazolam (Alprazolam 0.25 Mg Tablet) 0.25 mg PO BID PRN PRN Reason: Anxiety Stop: 12/09/24 07:22 Last Admin: 11/09/24 20:18 Dose: 0.25 mg Apixaban (Apixaban 5 Mg Tablet) 5 mg PO BID YESSENIA Stop: 12/09/24 20:59 Last Admin: 11/09/24 20:17 Dose: 5 mg Dextrose (Dextrose 50% 50 Ml Syringe) 25 - 50 ml IV UD PRN; Protocol PRN Reason: Hypoglycemia Protocol Stop: 12/09/24 10:20 Diltiazem HCl (Diltiazem Hcl 240 Mg Capcr) 240 mg PO DAILY YESSEINA Stop: 12/09/24 10:29 Last Admin: 11/09/24 11:20 Dose: 240 mg Glucagon (Glucagon For Inj 1 Mg Vial) 1 mg SQ UD PRN; Protocol PRN Reason: Hypoglycemia Protocol Stop: 12/09/24 10:20 Glucose (Glucose 40% Gel 15 Gm Tube) 15 - 30 gm PO UD PRN; Protocol PRN Reason: Hypoglycemia Protocol Stop: 12/09/24 10:20 Glucose (Glucose 10 Tab/Tube) 4 - 8 tab PO UD PRN; Protocol PRN Reason: Hypoglycemia Protocol Stop: 12/09/24 10:20 Amiodarone HCl/Dextrose (Nexterone / D5w) 360 mg in 200 mls @ 16.667 mls/hr IV .Q12H [facility] Stop: 12/09/24 13:29 Last Admin: 11/10/24 01:31 Dose: 0.5 mg/min, 16.7 mls/hr Cefepime HCl (Maxipime 2000mg) 2,000 mg in 20 mls @ 5 mls/min IV Q8H [facility]; Protocol Stop: 11/11/24 16:59 Last Admin: 11/10/24 07:48 Dose: 5 mls/min Vancomycin HCl (Vancomycin Hcl) 1,000 mg in 270 mls @ 200 mls/hr IV Q12H [facility] Stop: 11/11/24 19:59 Last Infusion: 11/10/24 00:11 Dose: Infused Insulin Aspart (Insulin Aspart Per Unit Charge) 0 units SC ACHS [facility] Stop: 12/09/24 16:29 Last Admin: 12/18/24 22:50 Dose: Not Given Insulin Glargine (Lantus Per Unit Charge) 5 units SQ DAILY [facility] Stop: 12/09/24 10:29 Last Admin: 11/09/24 12:06 Dose: 5 units Levothyroxine Sodium (Levothyroxine Sodium 50 Mcg Tablet) 50 mcg PO DAILYBB [facility] Stop: 12/09/24 10:44 Last Admin: 11/10/24 06:44 Dose: 50 mcg Miscellaneous (Carbohydrates For Hypoglycemia ) 15 - 30 gm PO UD PRN PRN Reason: Hypoglycemia Protocol Stop: 12/09/24 10:20 Miscellaneous Information (Pharmacist Discharge Med Rec Consult) 1 each N/A UD PRN PRN Reason: Consult Stop: 12/09/24 07:19 Miscellaneous Information (Vancomycin Consult Active) 1 each N/A UD PRN PRN Reason: Consult Stop: 12/09/24 08:56 Multivitamins (Multivitamin Tab) 1 tab PO QAM [facility] Stop: 12/09/24 08:59 Last Admin: 11/09/24 11:20 Dose: 1 tab Pantoprazole Sodium (Pantoprazole 40 Mg Tab) 40 mg PO HS [facility] Stop: 12/09/24 20:59 Last Admin: 11/09/24 20:17 Dose: 40 mg Simvastatin (Simvastatin 20 Mg Tab) 20 mg PO HS [facility] Stop: 12/09/24 20:59 Last Admin: 11/09/24 20:17 Dose: 20 mg Tramadol HCl (Tramadol Hcl 50 Mg Tablet) 25 mg PO Q4H PRN PRN Reason: Pain Stop: 12/09/24 07:22
--- NOTE | 2024-11-10 09:45 | CT Scan Report ---
CT OF THE HEAD WITHOUT CONTRAST CLINICAL HISTORY: Follow up cerebrovascular accident. COMPARISON STUDY: Head CT and CTA of the head November 09, 2024. MRI of the brain March 27, 2008. CT DOSE: 1499.97 mGy.cm TECHNIQUE: Helical axial images of the head were obtained without IV contrast. Automated exposure con trol was utilized for the study. A dose lowering technique was utilized adhering to the principles o f ALARA. FINDINGS: No acute intracranial hemorrhage, midline shift or mass effect is present. The ventricular system is stable. The basal cisterns are patent. No extra-axial collections are present. There are no findings to suggest acute dural sinus thrombosis or acute territorial infarct. There are no calvaria l fractures. Left sphenoid sinus opacification is chronic. IMPRESSION: No acute intracranial findings. No change in appearance of the brain. ACT 112: Negative or not required by law. Electronically signed by: Mauricio Tovar M.D. 11/10/2024 9:42 AM
[2024-11-10] MEDS: POTASSIUM CHLORIDE CRTAB 20 MEQ TABCR PO STA (10:28)
[2024-11-10] MEDS: CYANOCOBALAMIN 1000 MCG/ML VIAL IM ONE (10:29)
[2024-11-10 12:15] LABS: Magnesium 1.9 mg/dl (1.7-2.4)
--- NOTE | 2024-11-10 18:32 | Cardiology Progress Note ---
Date of Service November 10, 2024 Assessment & Plan (1) Paroxysmal atrial fibrillation: (2) Anticoagulant long-term use: (3) Hypertension: (4) Encephalopathy: Plan ASSESSMENT/PLAN: 1. Paroxysmal atrial fibrillation: Was in sinus rhythm in August while at EP appointment but A-fib with RVR here. Can continue amiodarone and hopefully she will convert to sinus as her heart rates are quite elevated while in A-fib despite diltiazem 240 mg daily and she has not tolerated beta-stephen. Rate may be mildly improved. Continue anticoagulation for stroke risk reduction. Monitor CBC and renal function while on Eliquis. Monitor TSH and transaminase levels while on amiodarone. Repeat ECG tomorrow. 2. Encephalopathy: Seen by neurology for concern of stroke, however not felt to have stroke. Being managed for sepsis by primary hospitalist service with elevated procalcitonin level. 3. Hypertension: Blood pressure acceptable. Can continue diltiazem 240 mg p.o. daily. 4. Anticoagulation therapy: Continue Eliquis if no known contraindication. 5. Disposition: Cardiology will continue to follow. On discharge, follow-up with Dr. Esparza. Admission and Anticipated Discharge Date Admission Date: November 09, 2024 Physical Exam Physical Exam: Gen.: No acute distress. Alert. HEENT: Anicteric sclera. Neck: No JVD. No bruits. Normal carotid upstrokes bilaterally. Cardiac: Irregularly irregular. Tachycardic. Normal S1-S2. No murmurs, rubs, or gallops. Pulmonary: Clear to auscultation bilaterally without wheezes, rales, or rhonchi. Abdomen: Soft, nontender, nondistended, with normoactive bowel sounds. No bruits noted. Extremities: 2+ radial pulses bilaterally. 2+ posterior tibialis pulses b ilaterally. 1-2+ bilateral lower extremity edema. No cyanosis. Psychiatric: Affect appears appropriate. Results & Data Vital Signs (Past 12 Hours) Vital Signs Temp Pulse Pulse Resp BP Pulse Ox O2 Del Method 11/10/24 15:17 36.8 C 98 H 18 134/76 97 Room Air 11/10/24 14:43 138 H 11/10/24 11:34 108 H 11/10/24 11:22 36.6 C 115 H 17 134/84 97 Room Air 11/10/24 08:40 36.7 C 116 H 17 110/76 98 Room Air 11/10/24 07:30 Room Air Laboratory Results Laboratory Results - last 24 hr 11/09/24 11/10/24 11/10/24 20:24 07:01 07:26 WBC 6.18 RBC 4.20 Hgb 11.1 L Hct 34.7 L MCV 82.6 MCH 26.4 MCHC 32.0 RDW Std Deviation 50.1 H RDW Coeff of Gonzalo 16.5 H Plt Count 191 MPV 10.9 Immature Gran % (Auto) 0.6 Neut % (Auto) 73.5 Lymph % (Auto) 13.4 [place] % (Auto) 10.7 Eos % (Auto) 1.3 Baso % (Auto) 0.5 Neut # (Auto) 4.54 Lymph # (Auto) 0.83 L [place] # (Auto) 0.66 H Eos # (Auto) 0.08 Baso # (Auto) 0.03 Immature Gran # (Auto) 0.04 Sodium 139 Potassium 3.5 Chloride 107 Carbon Dioxide 23 Anion Gap 9 BUN 8 Creatinine 0.55 L Est Cr Clr Drug Dosing 86.6 eGFR 91.46 BUN/Creatinine Ratio 14.5 Glucose 152 H POC Glucose 132 H 184 H Calcium 8.5 L Magnesium 1.9 Triglycerides 143 Cholesterol 117 LDL Cholesterol, Calc 47 VLDL Cholesterol, Calc 29 HDL Cholesterol 41 Cholesterol/HDL Ratio 2.9 Folate 9.28 11/10/24 11/10/24 11:47 15:57 WBC RBC Hgb Hct MCV MCH MCHC RDW Std Deviation RDW Coeff of Gonzalo Plt Count MPV Immature Gran % (Auto) Neut % (Auto) Lymph % (Auto) [place] % (Auto) Eos % (Auto) Baso % (Auto) Neut # (Auto) Lymph # (Auto) [place] # (Auto) Eos # (Auto) Baso # (Auto) Immature Gran # (Auto) Sodium Potassium Chloride Carbon Dioxide Anion Gap BUN Creatinine Est Cr Clr Drug Dosing eGFR BUN/Creatinine Ratio Glucose POC Glucose 142 H 103 H Calcium Magnesium Triglycerides Cholesterol LDL Cholesterol, Calc VLDL Cholesterol, Calc HDL Cholesterol Cholesterol/HDL Ratio Folate Diagnostic Findings Telemetry personally reviewed: Atrial fibrillation with rapid ventricular response when reviewed this morning. Blood cultures remain negative x 2 from 11/09/2024. Labs reviewed and notable for stable renal function, normal potassium, normal magnesium, mild anemia, excellent lipids. ECG personally reviewed from 11/10/2024: A-fib 108 bpm. Poor R wave progression. Nonspecific ST/T wave abnormality. CT head 11/10/2024: No acute intracranial findings. Medications Administered Current Inpatient Medications Acetaminophen (Acetaminophen 325 Mg Tab) 650 mg PO QID PRN PRN Reason: pain/fever Stop: 12/09/24 07:22 Last Admin: 11/09/24 16:32 Dose: 650 mg Alprazolam (Alprazolam 0.25 Mg Tablet) 0.25 mg PO BID PRN PRN Reason: Anxiety Stop: 12/09/24 07:22 Last Admin: 11/09/24 20:18 Dose: 0.25 mg Apixaban (Apixaban 5 Mg Tablet) 5 mg PO BID YESSENIA Stop: 12/09/24 20:59 Last Admin: 11/10/24 08:18 Dose: 5 mg Cyanocobalamin (Cyanocobalamin (B-12) 500 Mcg Tablet) 1,000 mcg PO QAM YESSENIA Stop: 12/11/24 08:59 Dextrose (Dextrose 50% 50 Ml Syringe) 25 - 50 ml IV UD PRN; Protocol PRN Reason: Hypoglycemia Protocol Stop: 12/09/24 10:20 Diltiazem HCl (Diltiazem Hcl 240 Mg Capcr) 240 mg PO DAILY [facility] Stop: 12/09/24 10:29 Last Admin: 11/10/24 08:19 Dose: 240 mg Glucagon (Glucagon For Inj 1 Mg Vial) 1 mg SQ UD PRN; Protocol PRN Reason: Hypoglycemia Protocol Stop: 12/09/24 10:20 Glucose (Glucose 40% Gel 15 Gm Tube) 15 - 30 gm PO UD PRN; Protocol PRN Reason: Hypoglycemia Protocol Stop: 12/09/24 10:20 Glucose (Glucose 10 Tab/Tube) 4 - 8 tab PO UD PRN; Protocol PRN Reason: Hypoglycemia Protocol Stop: 12/09/24 10:20 Amiodarone HCl/Dextrose (Nexterone / D5w) 360 mg in 200 mls @ 16.667 mls/hr IV .Q12H YESSENIA Stop: 12/09/24 13:29 Last Admin: 11/10/24 14:31 Dose: 0.5 mg/min, 16.7 mls/hr Cefepime HCl (Maxipime 2000mg) 2,000 mg in 20 mls @ 5 mls/min IV Q8H [facility]; Protocol Stop: 11/11/24 16:59 Last Admin: 11/10/24 17:22 Dose: 5 mls/min Insulin Aspart (Insulin Aspart Per Unit Charge) 0 units SC ACHS [facility] Stop: 12/09/24 16:29 Last Admin: 11/10/24 17:17 Dose: 1 units Insulin Glargine (Lantus Per Unit Charge) 5 units SQ DAILY [facility] Stop: 12/09/24 10:29 Last Admin: 11/10/24 08:30 Dose: 5 units Levothyroxine Sodium (Levothyroxine Sodium 50 Mcg Tablet) 50 mcg PO DAILYBB [facility] Stop: 12/09/24 10:44 Last Admin: 11/10/24 06:44 Dose: 50 mcg Miscellaneous (Carbohydrates For Hypoglycemia ) 15 - 30 gm PO UD PRN PRN Reason: Hypoglycemia Protocol Stop: 12/09/24 10:20 Miscellaneous Information (Pharmacist Discharge Med Rec Consult) 1 each N/A UD PRN PRN Reason: Consult Stop: 12/09/24 07:19 Multivitamins (Multivitamin Tab) 1 tab PO QAM [facility] Stop: 12/09/24 08:59 Last Admin: 11/10/24 08:18 Dose: 1 tab Pantoprazole Sodium (Pantoprazole 40 Mg Tab) 40 mg PO [facility] Stop: 12/09/24 20:59 Last Admin: 11/09/24 20:17 Dose: 40 mg Simvastatin (Simvastatin 20 Mg Tab) 20 mg PO [facility] Stop: 12/09/24 20:59 Last Admin: 11/09/24 20:17 Dose: 20 mg Tramadol HCl (Tramadol Hcl 50 Mg Tablet) 25 mg PO Q4H PRN PRN Reason: Pain Stop: 12/09/24 07:22 PG Care Time/CCT Total # of Minutes Spent Total Time Spent with Patient: Total time spent is greater than 50% in coordination of care (as documented) at patient's floor/unit and/or counseling patient: Coding Level of Care Code 76796 SUB INP/OBS CARE 3/50MIN Diagnoses Paroxysmal atrial fibrillation I48.0 Anticoagulant long-term use Z79.01 Hypertension I10 Encephalopathy G93.40
--- NOTE | 2024-11-10 21:53 | Electrocardiogram Report ---
Test Reason : Blood Pressure : */* mmHG Vent. Rate : 108 BPM Atrial Rate : 192 BPM P-R Int : * ms QRS Dur : 114 ms QT Int : 352 ms P-R-T Axes : * -31 151 degrees QTcB Int : 472 ms Poor data quality, interpretation may be adversely affected Atrial fibrillation with rapid ventricular response Left axis deviation Cannot rule out Anterior infarct (cited on or before 14-Sep-2024) Nonspecific ST and T wave abnormality Abnormal ECG When compared with ECG of 09-Nov-2024 05:04, T wave inversion less evident in Lateral leads Confirmed by Guy Hays [id number]) on 11/10/2024 9:52:44 PM Referred By: REFERRED SELF Confirmed By: Guy Hays
[2024-11-11 06:25] LABS: Basophils # (auto) 0.03 K/uL (0.00-0.20); Basophils % (auto) 0.5 %; Eosinophils # (auto) 0.15 K/uL (0.00-0.50); Eosinophils % (auto) 2.4 %; Hematocrit (blood only) 31.9 % (37.0-47.0); Hemoglobin 9.9 g/dl (12.0-16.0); Immature Granulocytes # (auto) 0.05 K/uL (0.01-0.20); Immature Granulocytes % (auto) 0.8 %; Lymphocytes # (auto) 0.99 K/uL (1.20-3.40); Lymphocytes % (auto) 15.5 %; Mean Corpuscular Hemoglobin 25.8 pg (25.0-34.0); Mean Corpuscular Volume 83.3 fL (80.0-100.0); Mean Platelet Volume 10.9 fL (9.4-12.4); Monocytes # (auto) 0.85 K/uL (0.11-0.59); Monocytes % (auto) 13.3 %; Neutrophils # (auto) 4.31 K/uL (1.40-6.50); Neutrophils % (auto) 67.5 %; Platelet Count 190 K/uL (130-400); RDW Coefficient of Variation 16.6 % (11.5-14.5); RDW Standard Deviation 50.1 fL (36.4-46.3); Red Blood Count 3.83 M/uL (4.20-5.40); White Blood Count 6.38 K/ul (4.8-10.8)
[2024-11-11 06:43] LABS: BUN Creatinine Ratio 12.7 (10-20); Calcium 8.4 mg/dl (8.6-10.3); Creatinine Clr Calc Pharmacy 86.8 ml/min; Magnesium 1.8 mg/dl (1.7-2.4); Phosphorus 2.5 mg/dl (2.5-4.9); Potassium 3.3 mmol/L (3.5-5.1)
--- NOTE | 2024-11-11 08:10 | Hospitalist Progress Note ---
Date of Service November 11, 2024 Assessment & Plan (1) Encephalopathy: Plan: Encephalopathy - resolved Multifactorial: Acute CVA vs TIA given new left-sided facial droop, history A-fib on Eliquis Sepsis, elevated procalcitonin, unknown source for now rule out lumbar spine source given back pain complaints, history surgery Rapid A-fib secondary to illness PCU given rapid A-fib IV amiodarone in addition to patient's oral Cardizem for rate control for now to prevent abrupt BP swings given acute CVA concern Cardiology consulted - pt follows w/ [facility] Cardioloogy Discussed w/ Dr. Hays today --> will switch pt to PO Amiodarone 400 mg po bid x 6 days then 200 mg po qd Neurochecks CT head after 24 hours re: left-sided facial droop (Patient cannot tolerate MRI due to severe claustrophobia as per patient/family.) TTE for additional stroke workup Neurology consult Re: Left-sided facial droop Per neurology - No specific concern for stroke and her risk factors are appropriately managed with anticoagulation. UA negative CS, Vancomycin and cefepime CT abdomen pelvis re: back pain, Eliquis Rx, sepsis Ct abd/pelvis 1. No acute intra-abdominal or intrapelvic abnormality identified. 2. Small subcutaneous contusion lateral to the right hip. No acute fracture identified. Reports dysuria and hematuria on 11/02 - reviewed outpt records - grew E.coli resistant to Bactrim -> pt then ended up at [facility]. Obtained records from there - urine cultx w/mixed arnulfo. WBC 17K on admission there. Here UA negat. Procal elevated at ~4 . Discussed further w/ ID - recommend to stop abx as UTI has resolved. New onset anemia, no obvious source of bleed for now, FOBT done at the ER was negative. Anemia workup, transfuse PRBC if hemoglobin less than 8 and or for symptomatic anemia B12 low - started supplement Chronic conditions chronic diastolic heart failure (EF 50%, TTE 2023), patient on the dry side on admission, monitor volume status valvular heart disease (mild AR TR, TTE 2023) hx PVD hypertension, BP currently stable hyperlipidemia, on statin Rx left breast cancer status post surgery/BRCA gene mutation as per records DM2 on oral medications, suboptimal control as of recent hemoglobin A1c of 30 June 2024 ISS BG goal 110-140, current hemoglobin A1c 7.5% Hypothyroidism, euthyroid as of current TSH Hx of past tobacco abuse DVT prophylaxis. Nayeli Full code Patient son - Mr. Anthony Mcgrath, contact #[phone]. Admission and Anticipated Discharge Date Admission Date: November 09, 2024 Subjective Pt seen in follow up of Afib RVR (currently on IV amiodarone), admitted w/ stroke -like symptoms, also concern for sepsis, recently treated at [facility] for UTI No fever, chills, chest pain, shortness of breath She is still on amio IV - HR still elevated Pt wants to be discharged and is very upset about being in the hospital Discussed with pt's son at the bedside as well as with cardiology. Pt does not wish to be on IV amiodarone -> will be switched to Po amio Otherwise pt denies any fever, chills, chest pain, shortness of breath Reports dysuria and hematuria on 11/02 - reviewed outpt records - grew E.coli resistant to Bactrim -> pt then ended up at [facility]. Obtained records from there - urine cultx w/mixed arnulfo. WBC 17K on admission there. Here UA negat. Discussed w/ ID - recommend to stop abx, as UTI has resolved Also discussed in detail w/ brazing machine operator of Systems Review of Systems: All systems reviewed & are unremarkable except as noted in Subjective Physical Exam Physical Exam: GENERAL: obese F in NAD HEENT: NC/AT, EOMI NECK : Supple, short neck, no tenderness CHEST : Decreased breath sounds, no tenderness HEART : Irregular, tachycardic, no obvious murmurs ABDOMEN: Some distention, nontender EXTREMITIES : Bilateral LE swelling edema without tenderness (chronic as per patient), moves extremities NEUROLOGIC : awake, alert, able to answer simple questions appropriately. no facial asymmetry, moves extremities SKIN: Pallor , warm Results & Data Results & Data Vital Signs (Past 12 Hours) Vital Signs Temp Pulse Pulse Resp BP BP Pulse Ox 11/11/24 07:50 36.6 C 114 H 18 150/86 H 98 11/11/24 07:04 103 H 11/11/24 06:00 11/11/24 02:50 36.6 C 85 16 117/76 97 11/10/24 22:55 36.5 C 100 H 20 127/86 96 Pulse Ox O2 Del Method O2 Del Method O2 Flow Rate 11/11/24 07:50 Room Air 11/11/24 07:04 11/11/24 06:00 92 Nasal Cannula 3 11/11/24 02:50 Room Air 11/10/24 22:55 Room Air Laboratory Results 11/11/24 11/11/24 11/10/24 Range/Units 07:03 05:29 20:42 WBC 6.38 (4.8-10.8) K/ul RBC 3.83 L (4.20-5.40) M/uL Hgb 9.9 L (12.0-16.0) g/dl Hct 31.9 L (37.0-47.0) % MCV 83.3 (80.0-100.0) fL MCH 25.8 (25.0-34.0) pg MCHC 31.0 L (32.0-36.0) g/dL RDW Std Deviation 50.1 H (36.4-46.3) fL RDW Coeff of Gonzalo 16.6 H (11.5-14.5) % Plt Count 190 (130-400) K/uL MPV 10.9 (9.4-12.4) fL Immature Gran % (Auto) 0.8 % Neut % (Auto) 67.5 % Lymph % (Auto) 15.5 % [place] % (Auto) 13.3 % Eos % (Auto) 2.4 % Baso % (Auto) 0.5 % Neut # (Auto) 4.31 (1.40-6.50) K/uL Lymph # (Auto) 0.99 L (1.20-3.40) K/uL [place] # (Auto) 0.85 H (0.11-0.59) K/uL Eos # (Auto) 0.15 (0.00-0.50) K/uL Baso # (Auto) 0.03 (0.00-0.20) K/uL Immature Gran # (Auto) 0.05 (0.01-0.20) K/uL Sodium 142 (136-145) mmol/L Potassium 3.3 L (3.5-5.1) mmol/L Chloride 109 H (98-107) mmol/L Carbon Dioxide 24 (21-32) mmol/L Anion Gap 9 (3-11) BUN 7 (6-23) mg/dl Creatinine 0.55 L (0.6-1.2) mg/dl Est Cr Clr Drug Dosing 86.8 ml/min eGFR 91.46 BUN/Creatinine Ratio 12.7 (10-20) Glucose 154 H (70-99(Fasting)) mg/dl POC Glucose 153 H 126 H (70-99) mg/dl Calcium 8.4 L (8.6-10.3) mg/dl Phosphorus 2.5 (2.5-4.9) mg/dl Magnesium 1.8 (1.7-2.4) mg/dl Folate (>5.38) ng/ml 11/10/24 11/10/24 11/10/24 Range/Units 15:57 11:47 07:01 WBC (4.8-10.8) K/ul RBC (4.20-5.40) M/uL Hgb (12.0-16.0) g/dl Hct (37.0-47.0) % MCV (80.0-100.0) fL MCH (25.0-34.0) pg MCHC (32.0-36.0) g/dL RDW Std Deviation (36.4-46.3) fL RDW Coeff of Gonzalo (11.5-14.5) % Plt Count (130-400) K/uL MPV (9.4-12.4) fL Immature Gran % (Auto) % Neut % (Auto) % Lymph % (Auto) % [place] % (Auto) % Eos % (Auto) % Baso % (Auto) % Neut # (Auto) (1.40-6.50) K/uL Lymph # (Auto) (1.20-3.40) K/uL [place] # (Auto) (0.11-0.59) K/uL Eos # (Auto) (0.00-0.50) K/uL Baso # (Auto) (0.00-0.20) K/uL Immature Gran # (Auto) (0.01-0.20) K/uL Sodium (136-145) mmol/L Potassium (3.5-5.1) mmol/L Chloride (98-107) mmol/L Carbon Dioxide (21-32) mmol/L Anion Gap (3-11) BUN (6-23) mg/dl Creatinine (0.6-1.2) mg/dl Est Cr Clr Drug Dosing ml/min eGFR BUN/Creatinine Ratio (10-20) Glucose (70-99(Fasting)) mg/dl POC Glucose 103 H 142 H (70-99) mg/dl Calcium (8.6-10.3) mg/dl Phosphorus (2.5-4.9) mg/dl Magnesium 1.9 (1.7-2.4) mg/dl Folate 9.28 (>5.38) ng/ml Medications Administered Current Inpatient Medications Acetaminophen (Acetaminophen 325 Mg Tab) 650 mg PO QID PRN PRN Reason: pain/fever Stop: 12/09/24 07:22 Last Admin: 11/09/24 16:32 Dose: 650 mg Alprazolam (Alprazolam 0.25 Mg Tablet) 0.25 mg PO BID PRN PRN Reason: Anxiety Stop: 12/09/24 07:22 Last Admin: 11/09/24 20:18 Dose: 0.25 mg Apixaban (Apixaban 5 Mg Tablet) 5 mg PO BID [facility] Stop: 12/09/24 20:59 Last Admin: 11/10/24 21:00 Dose: 5 mg Cyanocobalamin (Cyanocobalamin (B-12) 500 Mcg Tablet) 1,000 mcg PO QAM [facility] Stop: 12/11/24 08:59 Dextrose (Dextrose 50% 50 Ml Syringe) 25 - 50 ml IV UD PRN; Protocol PRN Reason: Hypoglycemia Protocol Stop: 12/09/24 10:20 Diltiazem HCl (Diltiazem Hcl 240 Mg Capcr) 240 mg PO DAILY [facility] Stop: 12/09/24 10:29 Last Admin: 11/10/24 08:19 Dose: 240 mg Glucagon (Glucagon For Inj 1 Mg Vial) 1 mg SQ UD PRN; Protocol PRN Reason: Hypoglycemia Protocol Stop: 12/09/24 10:20 Glucose (Glucose 40% Gel 15 Gm Tube) 15 - 30 gm PO UD PRN; Protocol PRN Reason: Hypoglycemia Protocol Stop: 12/09/24 10:20 Glucose (Glucose 10 Tab/Tube) 4 - 8 tab PO UD PRN; Protocol PRN Reason: Hypoglycemia Protocol Stop: 12/09/24 10:20 Amiodarone HCl/Dextrose (Nexterone / D5w) 360 mg in 200 mls @ 16.667 mls/hr IV .Q12H [facility] Stop: 12/09/24 13:29 Last Admin: 11/11/24 01:04 Dose: 0.5 mg/min, 16.7 mls/hr Insulin Aspart (Insulin Aspart Per Unit Charge) 0 units SC ACHS YESSENIA Stop: 12/09/24 16:29 Last Admin: 11/10/24 20:58 Dose: Not Given Insulin Glargine (Lantus Per Unit Charge) 5 units SQ DAILY [facility] Stop: 12/09/24 10:29 Last Admin: 11/10/24 08:30 Dose: 5 units Levothyroxine Sodium (Levothyroxine Sodium 50 Mcg Tablet) 50 mcg PO DAILYBB [facility] Stop: 12/09/24 10:44 Last Admin: 11/11/24 05:52 Dose: 50 mcg Miscellaneous (Carbohydrates For Hypoglycemia ) 15 - 30 gm PO UD PRN PRN Reason: Hypoglycemia Protocol Stop: 12/09/24 10:20 Miscellaneous Information (Pharmacist Discharge Med Rec Consult) 1 each N/A UD PRN PRN Reason: Consult Stop: 12/09/24 07:19 Multivitamins (Multivitamin Tab) 1 tab PO QAM [facility] Stop: 12/09/24 08:59 Last Admin: 11/10/24 08:18 Dose: 1 tab Pantoprazole Sodium (Pantoprazole 40 Mg Tab) 40 mg PO HS [facility] Stop: 12/09/24 20:59 Last Admin: 11/10/24 21:00 Dose: 40 mg Potassium Chloride (Potassium Chloride Crtab 20 Meq Tabcr) 40 meq PO NOW STA Stop: 11/11/24 08:07 Simvastatin (Simvastatin 20 Mg Tab) 20 mg PO HS [facility] Stop: 12/09/24 20:59 Last Admin: 11/10/24 21:00 Dose: 20 mg Tramadol HCl (Tramadol Hcl 50 Mg Tablet) 25 mg PO Q4H PRN PRN Reason: Pain Stop: 12/09/24 07:22
[2024-11-11] MEDS: CYANOCOBALAMIN (B-12) 500 MCG TABLET PO SCH (08:42)
[2024-11-11] MEDS: POTASSIUM CHLORIDE CRTAB 20 MEQ TABCR PO STA ×2 (08:53→13:21)
[2024-11-11] MEDS: FUROSEMIDE 40 MG/4 ML VIAL IV ONE (13:23)
--- NOTE | 2024-11-11 15:59 | Cardiology Progress Note ---
Date of Service November 11, 2024 Assessment & Plan (1) Paroxysmal atrial fibrillation: (2) Anticoagulant long-term use: (3) Hypertension: (4) Encephalopathy: Plan ASSESSMENT/PLAN: 1. Paroxysmal atrial fibrillation: Was in sinus rhythm in August while at EP appointment but A-fib with RVR here. Can continue amiodarone and hopefully she will convert to sinus as her heart rates are quite elevated while in A-fib despite diltiazem 240 mg daily and she has not tolerated beta-stephen. Nursing staff has since notified me since bedside visit, that and is refusing any further intravenous amiodarone. Can start amiodarone 400 mg p.o. twice daily for additional 6 days and then 200 mg once daily. This was discussed both with nursing staff and Dr. Martini. Continue anticoagulation for stroke risk reduction. Monitor CBC and renal function while on Eliquis. Monitor TSH and transaminase levels while on amiodarone. Repeat ECG periodically. 2. Encephalopathy: Seen by neurology for concern of stroke, however not felt to have stroke. Has been managed for sepsis by primary hospitalist service with elevated procalcitonin level. 3. Hypertension: Blood pressure mostly normotensive. Net fluid balance has been positive. She is not receiving her home Bumex. Resume Bumex tomorrow. She received intravenous Lasix today by primary hospitalist service. Can continue diltiazem 240 mg p.o. daily. 4. Anticoagulation therapy: Continue Eliquis if no known contraindication. 5. Disposition: After 5 PM today, I will not be covering the hospital. Please call on-call [facility] sagger filler for any further questions or concerns. I will sign out to Dr. Courtney who will be covering the weekend. On discharge, follow-up with Dr. Esparza. Admission and Anticipated Discharge Date Admission Date: November 09, 2024 Subjective Patient seen earlier this afternoon. She denies chest pain, shortness of breath, palpitations, syncope, near syncope, or bleeding. She stated that she wants to go home today and was very adamant about it. Her son presented to the bedside later without specific questions. Physical Exam Physical Exam: Gen.: No acute distress. Alert. HEENT: Anicteric sclera. Neck: No JVD. No bruits. Normal carotid upstrokes bilaterally. Cardiac: Irregularly irregular. Tachycardic. Normal S1-S2. No murmurs, rubs, or gallops. Pulmonary: Clear to auscultation bilaterally without wheezes, rales, or rhonchi. Abdomen: Soft, nontender, nondistended, with normoactive bowel sounds. No bruits noted. Extremities: 2+ radial pulses bilaterally. 2+ posterior tibialis pulses bilaterally. 1-2+ bilateral lower extremity edema. No cyanosis. Results & Data Vital Signs (Past 12 Hours) Vital Signs Temp Pulse Pulse Resp BP Pulse Ox Pulse Ox 11/11/24 15:42 37.0 C 109 H 18 153/83 H 96 11/11/24 11:26 36.9 C 101 H 18 131/82 96 11/11/24 07:50 36.6 C 114 H 18 150/86 H 98 11/11/24 07:04 103 H 11/11/24 06:00 92 O2 Del Method O2 Del Method O2 Flow Rate 11/11/24 15:42 Room Air 11/11/24 11:26 Room Air 11/11/24 07:50 Room Air 11/11/24 07:04 11/11/24 06:00 Nasal Cannula 3 Intake & Output 11/09/24 11/10/24 11/11/24 11/12/24 06:59 06:59 06:59 06:59 Intake Total 50 / 50 3506.503 / 3506.503 1546.185 / 1546.185 765.845 / 765.845 Output Total 1325 / 1325 700 / 700 450 / 450 Balance 50 / 50 2181.503 / 2181.503 846.185 / 846.185 315.845 / 315.845 Weight 200 lb 9.93 oz 195 lb 1.745 oz 195 lb 12.328 oz Laboratory Results Laboratory Results - last 24 hr 11/10/24 11/10/24 11/11/24 15:57 20:42 05:29 WBC 6.38 RBC 3.83 L Hgb 9.9 L Hct 31.9 L MCV 83.3 MCH 25.8 MCHC 31.0 L RDW Std Deviation 50.1 H RDW Coeff of Gonzalo 16.6 H Plt Count 190 MPV 10.9 Immature Gran % (Auto) 0.8 Neut % (Auto) 67.5 Lymph % (Auto) 15.5 [place] % (Auto) 13.3 Eos % (Auto) 2.4 Baso % (Auto) 0.5 Neut # (Auto) 4.31 Lymph # (Auto) 0.99 L [place] # (Auto) 0.85 H Eos # (Auto) 0.15 Baso # (Auto) 0.03 Immature Gran # (Auto) 0.05 Sodium 142 Potassium 3.3 L Chloride 109 H Carbon Dioxide 24 Anion Gap 9 BUN 7 Creatinine 0.55 L Est Cr Clr Drug Dosing 86.8 eGFR 91.46 BUN/Creatinine Ratio 12.7 Glucose 154 H POC Glucose 103 H 126 H Calcium 8.4 L Phosphorus 2.5 Magnesium 1.8 11/11/24 11/11/24 07:03 11:21 WBC RBC Hgb Hct MCV MCH MCHC RDW Std Deviation RDW Coeff of Gonzalo Plt Count MPV Immature Gran % (Auto) Neut % (Auto) Lymph % (Auto) [place] % (Auto) Eos % (Auto) Baso % (Auto) Neut # (Auto) Lymph # (Auto) [place] # (Auto) Eos # (Auto) Baso # (Auto) Immature Gran # (Auto) Sodium Potassium Chloride Carbon Dioxide Anion Gap BUN Creatinine Est Cr Clr Drug Dosing eGFR BUN/Creatinine Ratio Glucose POC Glucose 153 H 125 H Calcium Phosphorus Magnesium Diagnostic Findings Telemetry personally reviewed: Atrial fibrillation with rapid ventricular response. Labs reviewed and notable for stable renal function, mild hypokalemia, anemia. ECG personally reviewed 11/11/2024: A-fib 99 bpm. Septal infarct. Nonspecific ST/T wave abnormality. Prolonged QT. Medications Administered Current Inpatient Medications Acetaminophen (Acetaminophen 325 Mg Tab) 650 mg PO QID PRN PRN Reason: pain/fever Stop: 12/09/24 07:22 Last Admin: 11/09/24 16:32 Dose: 650 mg Alprazolam (Alprazolam 0.25 Mg Tablet) 0.25 mg PO BID PRN PRN Reason: Anxiety Stop: 12/09/24 07:22 Last Admin: 11/09/24 20:18 Dose: 0.25 mg Amiodarone HCl (Amiodarone 200 Mg Tab) 400 mg PO BIDM [facility] Stop: 12/11/24 16:59 Apixaban (Apixaban 5 Mg Tablet) 5 mg PO BID [facility] Stop: 12/09/24 20:59 Last Admin: 11/11/24 08:42 Dose: 5 mg Cyanocobalamin (Cyanocobalamin (B-12) 500 Mcg Tablet) 1,000 mcg PO QAM [facility] Stop: 12/11/24 08:59 Last Admin: 11/11/24 08:42 Dose: 1,000 mcg Dextrose (Dextrose 50% 50 Ml Syringe) 25 - 50 ml IV UD PRN; Protocol PRN Reason: Hypoglycemia Protocol Stop: 12/09/24 10:20 Diltiazem HCl (Diltiazem Hcl 240 Mg Capcr) 240 mg PO DAILY [facility] Stop: 12/09/24 10:29 Last Admin: 11/11/24 08:41 Dose: 240 mg Glucagon (Glucagon For Inj 1 Mg Vial) 1 mg SQ UD PRN; Protocol PRN Reason: Hypoglycemia Protocol Stop: 12/09/24 10:20 Glucose (Glucose 40% Gel 15 Gm Tube) 15 - 30 gm PO UD PRN; Protocol PRN Reason: Hypoglycemia Protocol Stop: 12/09/24 10:20 Glucose (Glucose 10 Tab/Tube) 4 - 8 tab PO UD PRN; Protocol PRN Reason: Hypoglycemia Protocol Stop: 12/09/24 10:20 Insulin Aspart (Insulin Aspart Per Unit Charge) 0 units SC ACHS [facility]ESS[facility] Stop: 12/09/24 16:29 Last Admin: 11/11/24 12:43 Dose: Not Given Insulin Glargine (Lantus Per Unit Charge) 5 units SQ DAILY [facility] Stop: 12/09/24 10:29 Last Admin: 11/11/24 08:55 Dose: 5 units Levothyroxine Sodium (Levothyroxine Sodium 50 Mcg Tablet) 50 mcg PO DAILYBB [facility] Stop: 12/09/24 10:44 Last Admin: 11/11/24 05:52 Dose: 50 mcg Miscellaneous (Carbohydrates For Hypoglycemia ) 15 - 30 gm PO UD PRN PRN Reason: Hypoglycemia Protocol Stop: 12/09/24 10:20 Multivitamins (Multivitamin Tab) 1 tab PO QAM [facility] Stop: 12/09/24 08:59 Last Admin: 11/11/24 08:42 Dose: 1 tab Pantoprazole Sodium (Pantoprazole 40 Mg Tab) 40 mg PO HS [facility] Stop: 12/09/24 20:59 Last Admin: 11/10/24 21:00 Dose: 40 mg Simvastatin (Simvastatin 20 Mg Tab) 20 mg PO HS [facility] Stop: 12/09/24 20:59 Last Admin: 11/10/24 21:00 Dose: 20 mg Tramadol HCl (Tramadol Hcl 50 Mg Tablet) 25 mg PO Q4H PRN PRN Reason: Pain Stop: 12/09/24 07:22 PG Care Time/CCT Total # of Minutes Spent Total Time Spent with Patient: Total time spent is greater than 50% in coordination of care (as documented) at patient's floor/unit and/or counseling patient: Coding Level of Care Code 33101 SUB INP/OBS CARE 3/50MIN Diagnoses Paroxysmal atrial fibrillation I48.0 Anticoagulant long-term use Z79.01 Hypertension I10 Encephalopathy G93.40
[2024-11-11] MEDS: AMIODARONE 200 MG TAB PO SCH (16:05)
[2024-11-11] MEDS ORDERED: BUMETANIDE 1 MG TAB PO SCH (16:15)
[2024-11-11] MEDS ORDERED: Nursing to Pharmacy Communication SCH (17:00)
--- NOTE | 2024-11-11 22:15 | Electrocardiogram Report ---
Test Reason : Blood Pressure : */* mmHG Vent. Rate : 103 BPM Atrial Rate : 122 BPM P-R Int : * ms QRS Dur : 104 ms QT Int : 308 ms P-R-T Axes : * -28 140 degrees QTcB Int : 403 ms Poor data quality, interpretation may be adversely affected Atrial fibrillation with rapid ventricular response Septal infarct (cited on or before 14-Sep-2024) Nonspecific T wave abnormality Abnormal ECG When compared with ECG of 10-Nov-2024 05:51, QT has shortened Confirmed by Guy Hays ([id number]) on 11/11/2024 10:15:06 PM Referred By: REFERRED SELF Confirmed By: Guy Hays
--- NOTE | 2024-11-11 22:16 | Electrocardiogram Report ---
Test Reason : Blood Pressure : */* mmHG Vent. Rate : 99 BPM Atrial Rate : 100 BPM P-R Int : * ms QRS Dur : 104 ms QT Int : 368 ms P-R-T Axes : * -32 141 degrees QTcB Int : 473 ms Atrial fibrillation Left axis deviation Septal infarct (cited on or before 14-Sep-2024) Nonspecific T wave abnormality Abnormal ECG When compared with ECG of 11-Nov-2024 05:53, QT has lengthened Confirmed by Guy Hays ([id number]) on 11/11/2024 10:16:11 PM Referred By: REFERRED SELF Confirmed By: Guy Hays
[2024-11-12 07:20] LABS: Basophils # (auto) 0.03 K/uL (0.00-0.20); Basophils % (auto) 0.4 %; Eosinophils % (auto) 1.3 %; Hematocrit (blood only) 32.1 % (37.0-47.0); Hemoglobin 10.1 g/dl (12.0-16.0); Immature Granulocytes # (auto) 0.09 K/uL (0.01-0.20); Immature Granulocytes % (auto) 1.1 %; Lymphocytes # (auto) 1.37 K/uL (1.20-3.40); Lymphocytes % (auto) 17.5 %; Mean Corpuscular Hemoglobin 26.1 pg (25.0-34.0); Mean Corpuscular Hgb Conc 31.5 g/dL (32.0-36.0); Mean Corpuscular Volume 82.9 fL (80.0-100.0); Mean Platelet Volume 10.7 fL (9.4-12.4); Monocytes # (auto) 0.93 K/uL (0.11-0.59); Monocytes % (auto) 11.8 %; Neutrophils # (auto) 5.33 K/uL (1.40-6.50); Neutrophils % (auto) 67.9 %; Platelet Count 230 K/uL (130-400); RDW Coefficient of Variation 16.7 % (11.5-14.5); RDW Standard Deviation 50.7 fL (36.4-46.3); Red Blood Count 3.87 M/uL (4.20-5.40); White Blood Count 7.85 K/ul (4.8-10.8)
[2024-11-12] MEDS ORDERED: ALPRAZolam 0.5 MG TABLET PO PRN (07:40)
[2024-11-12 07:51] LABS: Potassium 4.2 mmol/L (3.5-5.1)
[2024-11-12 07:52] LABS: BUN Creatinine Ratio 9.4 (10-20); Calcium 8.8 mg/dl (8.6-10.3); Creatinine Clr Calc Pharmacy 74.5 ml/min; Magnesium 1.8 mg/dl (1.7-2.4); Phosphorus 2.6 mg/dl (2.5-4.9)
[2024-11-12 07:57] VITALS: BP 149/82; PULSE 74; RESP 18; TEMP 97.9; O2SAT 97
[2024-11-12] MEDS: MAGNESIUM SULFATE / D5W 1 GM/100 ML BAG IV ONE (08:30)
[2024-11-12] MEDS: FUROSEMIDE 40 MG/4 ML VIAL IV ONE (08:31)
[2024-11-12] MEDS ORDERED: BUMETANIDE 1 MG TAB PO SCH ×2 (09:00→16:15)
--- NOTE | 2024-11-12 11:52 | Discharge Summary ---
Date of Service November 12, 2024 Admission HPI Per Admitting Provider History obtained from patient, family, and records. Patient is a fair historian. Medical history significant for chronic diastolic heart failure (EF 50%, TTE 2023), A-fib on Eliquis, PSVT, valvular heart disease (mild AR TR, TTE 2023), PVD, hypertension, hyperlipidemia, left breast cancer status post surgery, BRCA gene mutation as per records, DM2 on oral medications, hypothyroidism, GERD, recurrent UTIs, chronic lymphedema, chronic back pain status post surgery, anxiety disorder, past tobacco abuse. Recent confinement [facility] November 04 to 2023 for sepsis secondary to complicated UTI. No growth on urine CS. Patient discharged on Keflex course. Patient noted by family to be kind of off yesterday. Somewhat confused. This morning, patient had worsening of chronic back pain with some radiation to the legs. Had trouble walking from weakness. Headache which he attributed to antibiotics. Denies chest pain, cough, SOB. No abdominal pain, dysuria, diarrhea, or new leg wounds. Patient activated her medical alert device. Patient noted by EMS to have left facial droop and slurred speech. New as per family. Patient compliant with home medications. Patient noted to be in rapid A-fib upon arrival at the ER. IV ceftriaxone administered at the ER. 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 Admission Exam Per Admitting Provider GENERAL: Comfortable, obese, dysarthric, no respiratory distress SKIN: Pallor , warm HEENT: Bespectacled, pale palpebral conjunctivae, no ptosis, left facial asymmetry, dry buccal mucosa NECK : Supple, short neck, no tenderness CHEST : Decreased breath sounds, no tenderness HEART : Irregular, tachycardic, no obvious murmurs ABDOMEN: Some distention, nontender BACK : Low back tenderness, negative SLR RECTAL : Intact sphincter, brown stool (FOBT negative) EXTREMITIES : Bilateral LE swelling without tenderness (chronic as per patient), no other conspicuous deformities noted NEUROLOGIC : Coherent, L facial asymmetry, dysarthric, MMTS BUE 4/5, BLE 3/5 Principal Diagnosis Atrial fibrillation with RVR Discharge Exam GENERAL: obese F in NAD HEENT: NC/AT, EOMI NECK : Supple, short neck, no tenderness CHEST : Decreased breath sounds, no tenderness HEART : regular, no obvious murmurs ABDOMEN: Some distention, nontender EXTREMITIES : Bilateral LE edema without tenderness (chronic as per patient), moves extremities NEUROLOGIC : awake, alert, able to answer simple questions appropriately. no facial asymmetry, moves extremities SKIN: Pallor , warm Discharge Data Allergies Allergy/AdvReac Type Severity Reaction Status Date / Time No Known Drug Allergies Allergy Unknown Verified 10/28/24 10:11 Consultations 11/09/24 05:42 ED Decision to Admit Stat 11/09/24 07:20 Consult Neurology Routine 11/09/24 09:41 Consult Cardiology Routine Ordered Studies 11/09/24 04:20 CT angio head w con Stat IMPRESSION: 1. Bilateral mild atheromatous calcifications of the cavernous portions of both ICAs, with no significant stenosis. 2. Otherwise, unremarkable CTA brain study. CT angio neck with con Stat IMPRESSION: 1. 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 2. Bovine arch variant. 3. 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 CT head/brain wo con Stat IMPRESSION: 1. No acute intracranial hemorrhage or established territorial infarct. 2. Chronic microvascular ischemic changes. 3. Age-related brain involutional changes. 4. No significant interval changes. 5. Early changes of a stroke may not be detected on a CT scan. If there is strong clinical suspicion of stroke, further MRI with diffusion-weighted imaging is recommended. 11/09/24 06:54 CT Abd and Pelvis [CT abd pelvis wo con] Stat FINDINGS: Extensive coronary artery calcifications. The heart is normal in size. Mild bibasilar atelectasis versus scarring. Study is limited secondary to upper extremity positioning, streak artifact from spinal hardware and lack of contrast. No pneumatosis or pneumoperitoneum. Unremarkable spleen, moderately trophic pancreas and adrenal glands. Cholecystectomy. Unremarkable liver. Contrast within the collecting systems and ureters from the same day CTA neck limits evaluation for renal or ureteral calculi. No upper urothelial lesion identified. Cortical thinning of the kidneys without hydronephrosis. Decompressed bladder with Villanueva catheter in place. Unremarkable uterus. Atherosclerosis of the aorta. No lymphadenopathy or retroperitoneal hematoma. No bowel obstruction or bowel wall thickening. Mild rectal wall thickening with partial distention. Mild colonic diverticulosis. The appendix is not visualized. Left hip arthroplasty. Posterior interbody lopez and screw fusion at L3-L5. The right L4 screw extends into the L3-L4 disc space. Small subcutaneous contusion lateral to the right hip. IMPRESSION: 1. No acute intra-abdominal or intrapelvic abnormality identified. 2. Small subcutaneous contusion lateral to the right hip. No acute fracture identified. 3. Additional findings as above. 11/10/24 08:00 CT head/brain wo con Routine FINDINGS: No acute intracranial hemorrhage, midline shift or mass effect is present. The ventricular system is stable. The basal cisterns are patent. No extra-axial collections are present. There are no findings to suggest acute dural sinus thrombosis or acute territorial infarct. There are no calvarial fractures. Left sphenoid sinus opacification is chronic. IMPRESSION: No acute intracranial findings. No change in appearance of the brain. Hospital Course (1) Encephalopathy: Encephalopathy - resolved Multifactorial: Acute CVA vs TIA given new left-sided facial droop, history A-fib on Eliquis Sepsis, elevated procalcitonin, unknown source for now rule out lumbar spine source given back pain complaints, history surgery Rapid A-fib secondary to illness PCU given rapid A-fib IV amiodarone in addition to patient's oral Cardizem for rate control for now to prevent abrupt BP swings given acute CVA concern Cardiology consulted - pt follows w/ [facility] Discussed w/ Dr. Hays yesterday (11/11/24) --> switched pt to PO Amiodarone 400 mg po bid x 6 days then 200 mg po qd Patient converted to sinus rhythm overnight. Neurochecks CT head after 24 hours re: left-sided facial droop (Patient cannot tolerate MRI due to severe claustrophobia as per patient/fami ly.) TTE for additional stroke workup Neurology consult Re: Left-sided facial droop Per neurology - No specific concern for stroke and her risk factors are appropriately managed with anticoagulation. UA negative CS, Vancomycin and cefepime CT abdomen pelvis re: back pain, Eliquis Rx, sepsis Ct abd/pelvis 1. No acute intra-abdominal or intrapelvic abnormality identified. 2. Small subcutaneous contusion lateral to the right hip. No acute fracture identified. Reports dysuria and hematuria on 11/02 - reviewed outpt records - grew E.coli resistant to Bactrim -> pt then ended up at [facility]. Obtained records from there - urine cultx w/mixed arnulfo. WBC 17K on admission there. Here UA negat. Procal elevated at ~4 . Discussed further w/ ID - recommend to stop abx as UTI has resolved. New onset anemia, no obvious source of bleed for now, FOBT done at the ER was negative. Anemia workup, transfuse PRBC if hemoglobin less than 8 and or for symptomatic anemia B12 low - started supplement Chronic conditions chronic diastolic heart failure (EF 50%, TTE 2023), patient on the dry side on admission, monitor volume status valvular heart disease (mild AR TR, TTE 2023) hx PVD hypertension, BP currently stable hyperlipidemia, on statin Rx left breast cancer status post surgery/BRCA gene mutation as per records DM2 on oral medications, suboptimal control as of recent hemoglobin A1c of 30 June 2024 ISS BG goal 110-140, current hemoglobin A1c 7.5% community health educator consulted, glucosemeter and supplies sent to pharmacy Hypothyroidism, euthyroid as of current TSH Hx of past tobacco abuse Total Time Total Time Spent Total Time Spent (In Minutes): 40 Discharge Plan Discharge Items Patient Disposition: Home - Home Health Services Reason For Visit: RAPID AF, SEPSIS Discharge Diagnosis: Atrial fibrillation with RVR Activity: Per Instructions section Non-emergency contact: Primary Care Provider and Material Lister Call non-emergency contact if: you have any medication questions and your symptoms worsen Follow-up/Referrals: Cherelle Villavicencio MD [Primary Care Provider] - Diet: Carb Consistent or DM2 and Heart Healthy Addtl Attending Provider Instructions: Follow up with your primary care doctor and gold cutter. Take amiodarone 400 mg twice a day for next 5 days, then take 200 mg daily. Your vitamin B12 was found low, take vit. B12 supplement as prescribed. Monitor your blood sugar levels as discussed with personal development educator. Further discuss your numbers with your primary care doctor. Pending Studies at Discharge: No Stand-Alone Forms: My [employer], Smoking Cessation Medications and DC Order Prescriptions: New (DME) blood-glucose meter [OneTouch Ultra2 Meter] Misc See Rx Instructions .Route Qty: 1 0RF Rx Instructions: once a day (DME) lancets 33 gauge misc See Rx Instructions .Route Qty: 100 0RF Rx Instructions: once a day (DME) OneTouch Ultra Test Strip See Rx Instructions .Route Qty: 50 0RF Rx Instructions: once a day amiodarone 200 mg Tablet 400 mg PO BIDM Qty: 30 0RF Rx Instructions: Take 400 mg twice a day for next 5 days, then take 200 mg daily. cyanocobalamin (vitamin B-12) 500 mcg Tablet 1,000 mcg PO QAM Qty: 30 0RF multivitamin with folic acid [Daily-Farshad (with folic acid)] 400 mcg Tablet 1 tab PO QAM Qty: 30 0RF Continued levothyroxine 50 mcg tablet 50 mcg PO QAM Qty: 90 3RF Rx Instructions: last filled 10/01 90 day supply #90 omeprazole 20 mg capsule,delayed release(DR/EC) 20 mg PO HS Qty: 90 3RF simvastatin 20 mg tablet 20 mg PO HS Qty: 90 3RF metformin 1,000 mg tablet 1,000 mg PO BID Qty: 180 0RF diltiazem HCl 240 mg capsule,extended release 24hr 240 mg PO DAILY Qty: 90 3RF potassium gluconate 595 mg (99 mg) tablet 1,190 mg PO UD Rx Instructions: 1190 mg po qdd. OTC unable to verify ascorbic acid (vitamin C) 1,000 mg tablet 500 mg PO QAM alprazolam [Xanax] 0.5 mg tablet 0.5 mg PO DAILY PRN (Reason: y) Rx Instructions: 3 times a day as needed for anxiety apixaban 5 mg tablet 5 mg PO BID Rx Instructions: 1 tab twice a day cholecalciferol (vitamin D3) 1,000 unit capsule 1,000 units PO QAM calcium carbonate-vitamin D3 600 mg(1,500mg) -200 unit tablet 1 tab PO QAM glipizide 5 mg tablet extended release 24hr 5 mg PO UD Rx Instructions: last filled 07/15 30 day supply #30 spironolactone 25 mg tablet 25 mg PO UD Rx Instructions: 25 mg po daily. last filled 05/05 90 day supply #90 cephalexin 500 mg capsule 500 mg PO DIRECTED Rx Instructions: three times a day for four days bumetanide 0.5 mg tablet 0.5 mg PO DAILY Rx Instructions: last filled 10/22 90 day supply #90 Colace 100 mg PO DIRECTED Rx Instructions: docusate PreserVision AREDS-2 1 cap PO DIRECTED Rx Instructions: otc unable to verify ergocalciferol (vitamin D2) 1 cap PO DAILY Rx Instructions: Vitamin 02.80 mog potassium chloride 89 mg 89 mg PO UD Rx Instructions: 89 mg po daily OTC unable to verify Discharge Orders: Discharge Order (Routine); Ordered 11/12/24 Ordered By: David English/Other Patient Handouts: Managing Type 2 Diabetes Admission Data Admit Date/Time: 11/09/24 06:00 Attending Provider: David Martini Admit Provider: Walker Villanueva Primary Care Provider: Cherelle Villavicencio Other Providers: Walker Villanueva; Arianna Wright; Angelito Ramos; Arianna Ojeda; Adrian Seals; Jayden Gil; Otoniel Gaona; Skyler Shane; Adeline Shields; Shan Winters; Chapito Melara; Rubia Lane; Jad Tomlin; Sheila Tavarez; Tanvi Phoenix; Skyler Dc; Ann Li; Yoel White; Skyler Lynn; Ambrocio Courtney; Wally Alarcon; Jay Esparza; Martin Redman Jr; Guy Hays; Wendy Velarde; Deanna Velasquez; Kashif Calvillo; Kashif Love; Gagan Murray; Seda Harris; Fco Herrera; Delmis Kiran; Richi Pozo.; Fco De La Cruz; Tyler Jeffers; Tejinder Driver; [facility]
--- NOTE | 2024-11-14 11:34 | Electrocardiogram Report ---
Test Reason : Blood Pressure : */* mmHG Vent. Rate : 76 BPM Atrial Rate : 76 BPM P-R Int : 182 ms QRS Dur : 102 ms QT Int : 394 ms P-R-T Axes : 83 -21 119 degrees QTcB Int : 443 ms Normal sinus rhythm Poor R wave progression, consider anterior [place] vs. lead placement vs. LVH Nonspecific ST abnormality Abnormal ECG When compared with ECG of 11-Nov-2024 05:58, Sinus rhythm has replaced Atrial fibrillation QT has shortened Confirmed by Kashif Love ([id number] on 11/14/2024 11:34:22 AM Referred By: REFERRED SELF Confirmed By: Kashif Love
== END 2024-11-12 13:17 | disposition home health service (06) | DRG 871 ==
LOC: ED 04:23 → SUATTDRO 06:00 → 2S 06:00